=== PATIENT | female | born 1955 | race Caucasian/White ===

== ENCOUNTER 2018-02-14 17:18 | Inpatient (IN) ==
--- NOTE | 2018-02-14 17:30 | Emergency Department Note ---
Disposition Clinical Impression: Fall Qualifiers: Encounter type: initial encounter Qualified Code(s): W19.XXXA - Unspecified fall, initial encounter Fracture of right tibial plateau Qualifiers: Encounter type: initial encounter Fracture type: closed Qualified Code(s): S82.141A - Displaced bicondylar fracture of right tibia, initial encounter for closed fracture Disposition: Admitted As Inpatient Condition: Fair Time of Disposition: 20:13 Fall HPI - General Stated Complaint: Fall Time Seen by Provider: 02/14/18 17:26 Nursing Notes Reviewed: Yes Vital Signs Reviewed: Yes - History of Present Illness HPI Narrative: 62-year-old female presents from home via EMS for evaluation after a fall. Patient was walking up the stairs of her porch carrying bags from a shopping trip and stumbled, falling into the flower bed with mulch and concrete figurines. No loss of consciousness. She did hit the left side of her jaw on something hard. Her primary concern at this time is her right knee pain. PMH: Remote esophageal cancer. Hypertension. No history of CVA, TIA, CAD, ACS. ROS: Positive: As above Negative: Chest pain, palpitations, dizziness, vertigo, weakness, numbness, tingling, confusion, changes in vision, fever, dysuria - Related Data Home Medications Medication Instructions Recorded Confirmed Atenolol [Tenormin] 12.5 mg PO DAILY 02/14/18 02/14/18 Atorvastatin [Lipitor] 10 mg PO HS 02/14/18 02/14/18 Buspirone HCl [Buspar] 15 mg PO BID 02/14/18 02/14/18 Cholecalciferol (D-3) [Vitamin D] 5,000 unit PO DAILY 02/14/18 02/14/18 Esomeprazole Magnesium [Nexium] 40 mg PO DAILY 02/14/18 02/14/18 Ferrous Sulfate [Iron] 325 mg PO TID 02/14/18 02/14/18 Lisinopril [Zestril] 10 mg PO DAILY 02/14/18 02/14/18 Magnesium Oxide [Magnesium] 400 mg PO BID 02/14/18 02/14/18 Megestrol Acetate [Megace] 40 mg PO BID 02/14/18 02/14/18 Sodium Chloride [Sodium Chloride 1 gm PO DAILY 02/14/18 02/14/18 Tab] traZODone [TraZODone] 25 mg PO HS 02/14/18 02/14/18 Allergies Allergy/AdvReac Type Severity Reaction Status Date / Time No Known Allergies Allergy Verified 10/29/16 16:21 All systems ED: reviewed and negative except as stated. Review of Systems: As Per HPI Fall PMH - Past Medical History Medical history: Reports: coronary artery disease Surgical history: Reports: non-contributory Psychiatric history: Reports: no psych history - Social History Smoking Status: Never smoker Alcohol use: Reports: none Drug use: Reports: none Physical Exam Primary survey: Airway: Intact; patient is speaking in complete sentences and maintaining secretions. Breathing: No chest wall tenderness. Bilateral breath sounds equal. Circulation: Bilateral radial, posterior tibial, pulses 2/4. No hemorrhaging. Disability: GCS 15. Exposure: Faint ecchymosis over left angle of mandible otherwise no abrasions, lacerations, ecchymosis, or hematomas on the patient's scalp or face, trunk, extremities. Secondary survey Vital Signs Reviewed General: Patient is alert, oriented, and in mild distress from her right knee pain. She appears looking stated age. HEENT: No facial asymmetry. Head is normocephalic and atraumatic. PERRLA, EOMI. Nasal turbinates moist and pink without epistaxis. Oral mucosa moist. Poor dentition. Cardiovascular: Heart regular rate and rhythm without clicks, rubs, gallops, or murmurs. No JVD. PMI nondisplaced. Bilateral radial and posterior tibial pulses 2/4 equal. Respiratory: Symmetric chest rise with good respiratory effort. Bilateral breath sounds are clear without wheezing, crackles, or rhonchi. Abdomen: Bowel sounds present normoactive x-4 quadrants. Abdomen is soft, nondistended, and nontender. No organomegaly noted. Musculoskeletal: Right knee is swollen and tender to palpation; range of motion limited secondary to pain. Left knee painful to palpation and with Dr. range of motion; nonswollen with no overlying ecchymosis, abrasion, laceration. Pain to movement of right pinky finger with no overlying ecchymosis, deformity, laceration, abrasion. Otherwise, nontender spinous processes C-spine, T-spine, L-spine. Nontender palpation of ribs, pelvis, shoulders, elbows, wrist or hands , arm or forearm, thigh, leg, ankle, foot. Neuro: Sensation light touch intact and equal in bilateral upper and lower extremity. No facial asymmetry or slurring of speech. Psych: Patient's affect is appropriate for situation. Course Course Narrative: X-ray right knee demonstrates comminuted fracture of the right tibial plateau. Imaging otherwise unremarkable. Discussed the patient with on-call orthopedics, Dr. Smalls. He requests CT proximal tibia without contrast, admission to hospitalist. He will see the patient as consult. Will order preop labs. Discussed the patient with the admitting hospitalist. He agrees to see the patient for continued evaluation monitoring. Cervical Spine CT 02/14/18 17:27 IMPRESSION: No acute abnormality of the cervical spine. D/ / Khai Hess MD / Khai Hess MD Interpreting Provider: Khai Hess MD Head CT 02/14/18 17:27 IMPRESSION: Stable negative CT brain with no acute intracranial abnormality. D/ / Aida Adler MD / Aida Adler MD Interpreting Provider: Aida Adler MD Knee X-Ray 02/14/18 17:27 IMPRESSION: 1. Comminuted fracture extending through the medial and lateral right tibial plateau 2. Right joint effusion 3. No acute abnormalities seen in the left knee D/ / Esvin Dong MD / Esvin Dong MD Interpreting Provider: Esvin Dong MD Hand X-Ray 02/14/18 17:33 IMPRESSION: No acute osseous abnormality. Given the degree of osteopenia, nondisplaced fractures may be radiographically occult. If pain or concern for fracture persists, consider MR or CT imaging. D/ / Demetrice Gonsalez MD / Demetrice Gonsalez MD Interpreting Provider: Demetrice Gonsalez MD Vital Signs Temperature 97.6 F 02/14/18 17:22 Pulse Rate 60 02/14/18 17:22 Respiratory Rate 16 02/14/18 17:22 Blood Pressure 196/87 02/14/18 17:22 O2 Sat by Pulse Oximetry 100 02/14/18 17:22 Temperature 97.6 F 02/14/18 17:22 Pulse Rate 61 02/14/18 18:30 Respiratory Rate 20 02/14/18 18:30 Blood Pressure 168/103 02/14/18 18:30 O2 Sat by Pulse Oximetry 100 02/14/18 18:30 Oxygen Delivery Oxygen Delivery Room Air Fall - Lab Data Result diagrams: 02/14/18 19:38 02/14/18 19:38
[2018-02-14] MEDS ORDERED: *HR* HYDROcodone/Acet 7.5/325 mg TABLET PO ONE (17:47)
--- NOTE | 2018-02-14 17:59 | Emergency Department Note ---
Disposition Clinical Impression: Fall Disposition: Still a Patient Referrals: Paras Horvath MD [Primary Care Provider] - Forms: ED Satisfaction Letter General Adult HPI - General Chief complaint: ED Extremity Injury, Lower Stated complaint: Fall Time Seen by Provider: 02/14/18 17:26 Source: patient Limitations: no limitations - History of Present Illness Pain Scale: 8 - Related Data Home Medications Medication Instructions Recorded Confirmed Atenolol [Tenormin] 12.5 mg PO DAILY 02/14/18 02/14/18 Atorvastatin [Lipitor] 10 mg PO HS 02/14/18 02/14/18 Buspirone HCl [Buspar] 15 mg PO BID 02/14/18 02/14/18 Cholecalciferol (D-3) [Vitamin D] 5,000 unit PO DAILY 02/14/18 02/14/18 Esomeprazole Magnesium [Nexium] 40 mg PO DAILY 02/14/18 02/14/18 Ferrous Sulfate [Iron] 325 mg PO TID 02/14/18 02/14/18 Lisinopril [Zestril] 10 mg PO DAILY 02/14/18 02/14/18 Magnesium Oxide [Magnesium] 400 mg PO BID 02/14/18 02/14/18 Megestrol Acetate [Megace] 40 mg PO BID 02/14/18 02/14/18 Sodium Chloride [Sodium Chloride 1 gm PO DAILY 02/14/18 02/14/18 Tab] traZODone [TraZODone] 25 mg PO HS 02/14/18 02/14/18 Allergies Allergy/AdvReac Type Severity Reaction Status Date / Time No Known Allergies Allergy Verified 10/29/16 16:21 Past Medical History - Past Medical History Medical history: Reports: coronary artery disease Surgical history: Reports: non-contributory Psychiatric history: Reports: no psych history - Social History Smoking Status: Never smoker Smokeless Tobacco Status: No Alcohol use: Reports: none Drug use: Reports: none Physical Exam - General Limitations: no limitations General appearance: alert, in no apparent distress Course Vital Signs Temperature 97.6 F 02/14/18 17:22 Pulse Rate 60 02/14/18 17:22 Respiratory Rate 16 02/14/18 17:22 Blood Pressure 196/87 02/14/18 17:22 O2 Sat by Pulse Oximetry 100 02/14/18 17:22 Temperature 97.6 F 02/14/18 17:22 Pulse Rate 61 02/14/18 18:30 Respiratory Rate 20 02/14/18 18:30 Blood Pressure 168/103 02/14/18 18:30 O2 Sat by Pulse Oximetry 100 02/14/18 18:30 Oxygen Delivery Oxygen Delivery Room Air Attestation Statement - Attestation Attestation: I examined this patient and my medical decision-making was reviewed with the Resident Physician. I agree with the documented findings, disposition and treatment plan as described except to the extent set forth below. Patient resisted emergency department after a fall. Patient lost her balance walking up the stairs outside her house with shopping bags. She lost her balance and fell to the side landing in the mulch and striking the side of her face on a garden statue. No loss of consciousness. Complaining of pain in the left side of her face and right knee pain. Denies neck or back pain. Denies taking blood thinners. On examination she has tenderness and swelling over the superior aspect of the knee. Does not allow any movement. Tenderness over the hand laterally and some mild left knee tenderness as well. No spine tenderness. Plan. Imaging. Patient with tibial plateau fracture. We will consult with orthopedics and will be admitted to medicine. Cervical Spine CT 02/14/18 17:27 IMPRESSION: No acute abnormality of the cervical spine. D/ / Khai Hess MD / Khai Hess MD Interpreting Provider: Kahi Hess MD Head CT 02/14/18 17:27 IMPRESSION: Stable negative CT brain with no acute intracranial abnormality. D/ / Aida Adler MD / Aida Adler MD Interpreting Provider: Aida Adler MD Knee X-Ray 02/14/18 17:27 IMPRESSION: 1. Comminuted fracture extending through the medial and lateral right tibial plateau 2. Right joint effusion 3. No acute abnormalities seen in the left knee D/ / Esvin Dong MD / Evsin Dong MD Interpreting Provider: Esvin Dong MD Hand X-Ray 02/14/18 17:33 IMPRESSION: No acute osseous abnormality. Given the degree of osteopenia, nondisplaced fractures may be radiographically occult. If pain or concern for fracture persists, consider MR or CT imaging. D/ / Demetrice Gonsalez MD / Demetrice Gonsalez MD Interpreting Provider: Demetrice Gonsalez MD
[2018-02-14 19:48] LABS: Basophils % 0.4 %; Eosinophils # 0.1 K/mcL (0.0-0.6); Eosinophils % 1.3 %; Hematocrit 35.6 % (35.3-44.9); Hemoglobin 12.1 g/dL (11.5-15.4); Immature Granulocytes % 0.4 % (0-4); Lymphocytes # 1.7 K/mcL (0.6-4.6); Lymphocytes % 21.6 %; Mean Corpuscular Hemoglobin 30.9 pg (28.0-33.3); Mean Corpuscular Volume 90.8 fL (83.0-100.0); Mean Platelet Volume 8.9 fL (9.4-12.4); Monocytes # 0.6 K/mcL (0.0-1.3); Monocytes % 7.2 %; Neutrophils # 5.3 K/mcL (1.6-8.9); Platelet Count 256 K/mcL (140-400); Red Blood Count 3.92 M/mcL (3.82-4.97); Red Cell Distribution Width 12.3 % (11.5-14.5); Segmented Neutrophils % 69.1 %
[2018-02-14] MEDS ORDERED: traMADol 50 MG TABLET PO PRN (19:49)
[2018-02-14] MEDS ORDERED: Naloxone 0.4 MG/ML INJ IVP PRN (19:49)
[2018-02-14] MEDS ORDERED: Acetaminophen 325 MG TABLET PO PRN (19:49)
[2018-02-14 19:54] LABS: Prothrombin Time 10.8 Seconds (9.4-12.1)
--- NOTE | 2018-02-14 19:54 | Internal Med History&Physical ---
Date of Encounter: 02/15/18 Time of Encounter: 19:53 Internal Medicine - H&P: HPI Chief complaint: Fall/Right Tibial Plateu Fracture History of present illness: Ms. Buckley is a 62 year old female with a past medical history of hypertension who presents to the emergency department after a fall. Patient reportedly lost her balance walking up a short flight of stairs outside her house while carrying shopping bags. She landing in the mulch and striking the side of her face on a garden statue. She reports no loss of consciousness. Upon presentation she complained of pain in the left side of her face and right knee pain. Denies neck or back pain. Denies taking blood thinners. On examination she has tenderness and swelling over the superior aspect of the knee. Does not allow any movement. Tenderness over the hand laterally and some mild left knee tenderness as well. No spine tenderness. Imaging notable for a comminuted fracture extending through the medial and lateral right tibial plateau. Dr. Byron conley with orthopedics has been consulted and will see the patient in the morning. Past Med Surg Social Fam HX - Past Medical History Medical history: coronary artery disease Additional medical history: esophageal cancer Psychiatric history: no psych history - Past Surgical History Surgical History: non-contributory Additional surgical history: esphagus - Social History Smoking Status: Never smoker Smokeless Tobacco Status: No Alcohol use: none Drug use: none Internal Medicine - H&P: Meds Atenolol [Tenormin] 12.5 mg PO DAILY 02/14/18 [History] Atorvastatin [Lipitor] 10 mg PO HS 02/14/18 [History] Buspirone HCl [Buspar] 15 mg PO BID 02/14/18 [History] Cholecalciferol (D-3) [Vitamin D] 5,000 unit PO DAILY 02/14/18 [History] Esomeprazole Magnesium [Nexium] 40 mg PO DAILY 02/14/18 [History] Ferrous Sulfate [Iron] 325 mg PO TID 02/14/18 [History] Lisinopril [Zestril] 10 mg PO DAILY 02/14/18 [History] Magnesium Oxide [Magnesium] 400 mg PO BID 02/14/18 [History] Megestrol Acetate [Megace] 40 mg PO BID 02/14/18 [History] Sodium Chloride [Sodium Chloride Tab] 1 gm PO DAILY 02/14/18 [History] traZODone [TraZODone] 25 mg PO HS 02/14/18 [History] 3 Allergy/AdvReac Type Severity Reaction Status Date / Time No Known Allergies Allergy Verified 10/29/16 16:21 All Systems PM: A 10-system review of systems was performed and is negative for pertinent findings except as documented above in the HPI. - Constitutional Constitutional: no chills, no fever(s), no night sweats - EENT Eyes: no change in vision, no discharge, no pain, no photophobia Ears: no ear discharge, no ear pain, no tinnitus Nose, mouth and throat: no dysphagia, no nasal discharge, no neck pain, no sore throat - Cardiovascular Cardiovascular ROS IM: no chest pain, no diaphoresis, no dyspnea, no lightheadedness, no palpitations, no syncope - Respiratory Respiratory: no cough, no dyspnea, no wheezing, no excessive phlegm production - Gastrointestinal Gastrointestinal: no abdominal pain, no diarrhea, no hematemesis, no hematochezia, no melena, no nausea, no vomiting - Genitourinary Genitourinary: no change in urinary stream, no dysuria, no flank pain, no hematuria - Musculoskeletal Musculoskeletal ROS IM: no numbness, no tingling - Integumentary Integumentary IM: no rash, no unusual bruising - Neurological Neurological ROS: no confusion, no convulsions, no focal weakness, no numbness, no tingling, no tremor(s) - Hematologic/Lymphatic Hematologic/Lymphatic: no easy bruising - Constitutional Vitals: Temp Pulse Resp BP Pulse Ox 97.6 F 61 20 168/103 100 02/14/18 17:22 02/14/18 18:30 02/14/18 18:30 02/14/18 18:30 02/14/18 18:30 Exam: General: Alert and oriented 3; lying in bed in no acute distress Skin:Normal color, no rash, no lesions. HEENT:EOM, pupils equal, round and reactive. Cardiovascular:Normal S1 & S2, no rubs, murmurs or gallops. No JVD. Pulse regular. Lungs:Normal breath sounds, no wheezes or crackles. Abdomen:Soft, non-tender, no rigidity. Extremities:No deformity of the right distal femur/knee, tender to palpation. no edema, no joint swelling or clubbing. Neurological:Normal cognition and motor skills. Pulses:Carotid and radial pulses normal +2. Rest of the physical exam is non contributory Internal Med - H&P Results - Labs CBC & Chem 7: 02/14/18 19:38 02/14/18 19:38 Labs: Short CBC 02/14/18 Range/Units 19:38 WBC 7.7 (4.3-11.1) K/mcL Hgb 12.1 (11.5-15.4) g/dL Hct 35.6 (35.3-44.9) % Plt Count 256 (140-400) K/mcL Neutrophils # 5.3 (1.6-8.9) K/mcL - Assessment and plan (1) Tibial plateau fracture, right Current Visit: Yes Status: Acute Assessment and plan: Right comminuted tibial plateau fracture status post fall. Orthopedics has been consulted. We will keep Patient nothing by mouth after midnight. Continue with heparin for DVT prophylaxis. Pain control. Qualifiers: Encounter type: initial encounter Fracture type: closed Qualified Code(s) : S82.141A - Displaced bicondylar fracture of right tibia, initial encounter for closed fracture (2) Fall Current Visit: Yes Status: Acute Assessment and plan: Fall without reports of loss of consciousness.. Continue with fluid hydration. Qualifiers: Encounter type: subsequent encounter Qualified Code(s): W19.XXXD - Unspecified fall, subsequent encounter (3) Hypertension Current Visit: Yes Status: Chronic Assessment and plan: Hypertension likely secondary to pain. Continue patient's home antihypertensives for today. Qualifiers: Hypertension type: essential hypertension Qualified Code(s): I10 - Essential (primary) hypertension (4) DVT prophylaxis Current Visit: Yes Status: Acute Assessment and plan: Subcutaneous heparin - Time Spent With Patient Total time spent is greater than 50% in coordination of care (as documented) at patient's floor/unit and/or counseling patient:
[2018-02-14 20:12] LABS: BUN/Creatinine Ratio 19 (6-26); Blood Urea Nitrogen 15 mg/dL (8-23); Calcium 9.9 mg/dL (8.6-10.3); Carbon Dioxide 24 mEq/L (23-29); Chloride 101 mEq/L (98-107); Glucose 102 mg/dL (70-105); Osmolality,Calculated 287 (280-300); Sodium 138 mEq/L (136-145); eGFR For Non-African Americans > 60 (> 60)
[2018-02-14] MEDS ORDERED: *HR* FentaNYL (PF) 100 MCG/2 ML VIAL IVP ONE (20:26)
[2018-02-14] MEDS ORDERED: *HR* FentaNYL (PF) 100 MCG/2 ML VIAL ONE (20:33)
[2018-02-14] MEDS: *HR* Heparin 5,000 UNIT/ML VIAL SQ SCH (22:28)
[2018-02-14] MEDS: 0.9 % Sodium Chloride 1,000 ML IVC SCH (22:29)
[2018-02-14] MEDS: *HR* OxyCODONE Immed Rel 5 MG TABLET PO PRN (22:29)
[2018-02-15] MEDS: *HR* Heparin 5,000 UNIT/ML VIAL SQ SCH ×3 (05:11→21:02)
[2018-02-15] MEDS: *HR* OxyCODONE Immed Rel 5 MG TABLET PO PRN ×2 (09:54→21:01)
--- NOTE | 2018-02-15 13:54 | Internal Med Progress Note ---
<Triston Pollard - Last Filed: 02/15/18 17:52> Hospitalist Progress Note - Encounter Date of Encounter: 02/15/18 Time of Encounter: 11:00 - Subjective Interval History: Patient was seen and examined up and since morning. She states overall she is doing well with improvement in her pain. She states she was carrying a case of soda a flight of stairs and had a mechanical fall secondary to this. She states that she stepped on the stair and just lost her footing. She denies any symptoms of dizziness, lightheadedness, palpitations, chest pain, shortness of breath. She denies loss of consciousness and states she fell on her face. She states she does not have chest pain at home and walks around with intermittent assistance of a cane/walker. She does not climb stairs however is able to get around her house without any problems. Last cardiac workup unknown to patient. She states she believes she had an echocardiogram at some point but is never required a left heart catheterization or stress test. - Exam Vitals: Temp Pulse Resp BP Pulse Ox 98.1 F 69 18 124/76 94 02/15/18 11:01 02/15/18 11:01 02/15/18 11:01 02/15/18 11:01 02/15/18 11:01 Exam: Gen.: Vitals noted. No acute distress. AAOx3 HEENT: PERRL/EOMI, oropharynx clear, Normocephalic, atraumatic, MMM Cardiac: RRR, no murmur, +S1/S2 Pulmonary: CTA bilaterally, no wheezes, rales or rhonchi, equal chest expansion Abdomen: soft, nontender, BS noted, no guarding, no rebound. MSK: Range of motion of right lower extremity not tested as patient is in a knee splint. Sensation intact in bilateral lower extremities. Extremities: no BLE edema, nontender calf, no cyanosis or clubbing. Distal pulses equal and strong. Neuro: A&Ox3, moves all extremities, no focal deficits Psych: Appropriate mood and behavior - Assessment and Plan (1) Fall Current Visit: Yes Status: Acute Assessment and Plan: Fall without reports of loss of consciousness.. Patient states this is a mechanical fall without evidence of syncope or presyncope. Continue IV fluids while nothing by mouth Head CT unremarkable for acute changes, cervical spine CT shows no acute changes , hand x-ray with no acute fractures. No previous cardiac workup in our records and patient is unsure but states that she has no cardiac issues. We will obtain EKG and anticipation for possible surgery (2) Tibial plateau fracture, right Current Visit: Yes Status: Acute Assessment and Plan: Right comminuted tibial plateau fracture status post fall. Orthopedics has been consulted. Continue nothing by mouth status until assessed by orthopedics Continue with heparin for DVT prophylaxis. Patient reports adequate Pain control. (3) Hypertension Current Visit: Yes Status: Chronic Assessment and Plan: Well-controlled this morning at 124/76 Continue monitor and continue home medications (4) DVT prophylaxis Current Visit: Yes Status: Acute Assessment and Plan: Subcutaneous heparin - Time Spent with Patient Total time spent is greater than 50% in coordination of care (as documented) at patient's floor/unit and/or counseling patient: Internal Medicine: Result - Labs CBC & Chem 7: 02/14/18 19:38 02/14/18 19:38 - ABG Interpretation ABG results: PT/INR, D-dimer PT 10.8 Seconds (9.4-12.1) 02/14/18 19:38 Consult Discharge Plan - Plan Referrals: Paras oHrvath MD [Primary Care Provider] - <Kamar Doty - Last Filed: 02/15/18 18:40> Hospitalist Progress Note - Encounter Date of Encounter: 02/15/18 - Exam Vitals: Temp Pulse Resp BP Pulse Ox 98.6 F 82 16 89/60 96 02/15/18 17:47 02/15/18 17:47 02/15/18 17:47 02/15/18 17:47 02/15/18 17:47 - Assessment and Plan (1) Fall Current Visit: Yes Status: Acute (2) Tibial plateau fracture, right Current Visit: Yes Status: Acute (3) Hypertension Current Visit: Yes Status: Chronic (4) DVT prophylaxis Current Visit: Yes Status: Acute - Time Spent with Patient Total time spent is greater than 50% in coordination of care (as documented) at patient's floor/unit and/or counseling patient: Internal Medicine: Result - Labs CBC & Chem 7: 02/14/18 19:38 02/14/18 19:38 - ABG Interpretation ABG results: PT/INR, D-dimer PT 10.8 Seconds (9.4-12.1) 02/14/18 19:38 - Attending Attestation I examined this patient and my medical decision-making was reviewed with the Resident Physician on 02/15/18. I agree with the documented findings, disposition and treatment plan as described except to the extent set forth below. Ms Buckley is currently admitted for fracture tibial plateau. She remains moderate to high risk due to potential for worsening clinical status. Ms Buckley is awaiting surgery. No fever or chills. Pain controlled. Exam Alert Comfortable at this time Mucus membranes dry Heart distant Lungs diminished Abd soft I/P 1. Fracture tibial plateau Further diagnoses and plan as above. <Triston Pollard - Last Filed: 02/15/18 17:52> (1) Fall Qualifiers: Encounter type: initial encounter Qualified Code(s): W19.XXXA - Unspecified fall, initial encounter (2) Tibial plateau fracture, right Qualifiers: Encounter type: initial encounter Fracture type: closed Qualified Code(s): S82.141A - Displaced bicondylar fracture of right tibia, initial encounter for closed fracture <Kamar Doty - Last Filed: 02/15/18 18:40> (1) Fall Qualifiers: Encounter type: subsequent encounter Qualified Code(s): W19.XXXD - Unspecified fall, subsequent encounter (2) Tibial plateau fracture, right Qualifiers: Encounter type: initial encounter Fracture type: closed Qualified Code(s): S82.141A - Displaced bicondylar fracture of right tibia, initial encounter for closed fracture (3) Hypertension Qualifiers: Hypertension type: essential hypertension Qualified Code(s): I10 - Essential (primary) hypertension
[2018-02-15] MEDS: 0.9 % Sodium Chloride 1,000 ML IVC SCH (17:40)
--- NOTE | 2018-02-15 19:44 | Orthopedic Consult Note ---
Date of Encounter: 02/15/18 Time of Encounter: 19:35 History of Present Illness Chief complaint: Right knee pain HPI: Ms. Buckley is a 62 year old female well known to me from previous treatment of other conditions. The patient apparently sustained a mechanical fall injuring her right knee at home. She was brought to the emergency room and [facility] were x-rays revealed evidence of a right tibial plateau fracture. CT scan evaluation revealed a severely comminuted fracture. Patient is admitted for definitive orthopedic management. Patient denies any other injuries. She denies blackouts dizziness vertigo etc. leading to the event. I reviewed the patient's completed history and physical exam as well as the medical record. Pertinent orthopedic examination this time reveals a markedly tense effusion in the right knee. The right leg around the knee and proximal tibia area is tender to palpation. Still neurosensory exam is intact. No evidence of rotational or leg length deformities. Reviewed x-rays of the right knee. These reveal a bicondylar fracture of the proximal tibia. There is metaphyseal involvement of both the medial and lateral sides with a very wide appearing tibial surface. Lateral views reveals depression. A CT scan of the knee shows the more extensive fracture involvement. There is tremendous comminution of the articular surfaces especially with a split depressed central portion of the lateral tibial plateau and marked involvement of the anterior aspect of the medial plateau. This includes the region of the tibial tubercle. A large lipohemarthrosis is present. Impression: Acute, comminuted bicondylar fracture right tibial plateau ( Schatzker ) Recommendation: Had a long discussion with the patient regarding this fracture and the treatment options available. This is a severe fracture with long-term sequelae no matter how warts treated. 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 Surgical reduction and fixation would be aimed at providing optimal bone stock for knee replacement when the posttraumatic arthritis becomes painful enough to proceed with such. Discussed that nonoperative management guarantees a poor outcome. Discussed with the patient surgical procedure in ORIF of this fracture. This would include both medial and lateral buttress plate fixation and bone grafting of the fluid in the metaphyseal region and in the subchondral bone. We discussed the surgical procedure with its potential risks and complications including but not limited to bleeding, infection, nerve injury, stiffness, malunion, nonunion as well as the anticipated posttraumatic arthritis. I showed the patient images in addition to reviewing the surgical procedure. Patient understands and agrees to proceed with surgery as outlined. I have scheduled her for surgery tomorrow and will proceed when operating time is available. Thank you very much for allowing me to see and treat Mrs. Buckley. Sincerely, Steven Smalls,DO Past Med Surg Social Fam HX - Past Medical History Medical history: coronary artery disease Additional medical history: esophageal cancer Psychiatric history: no psych history - Past Surgical History Surgical History: non-contributory Additional surgical history: esphagus - Social History Smoking Status: Never smoker Smokeless Tobacco Status: No Alcohol use: none Drug use: none Medications and Allergies Atenolol [Tenormin] 12.5 mg PO DAILY 02/14/18 [History] Atorvastatin [Lipitor] 10 mg PO HS 02/14/18 [History] Buspirone HCl [Buspar] 15 mg PO BID 02/14/18 [History] Cholecalciferol (D-3) [Vitamin D] 5,000 unit PO DAILY 02/14/18 [History] Esomeprazole Magnesium [Nexium] 40 mg PO DAILY 02/14/18 [History] Ferrous Sulfate [Iron] 325 mg PO TID 02/14/18 [History] Lisinopril [Zestril] 10 mg PO DAILY 02/14/18 [History] Magnesium Oxide [Magnesium] 400 mg PO BID 02/14/18 [History] Megestrol Acetate [Megace] 40 mg PO BID 02/14/18 [History] Sodium Chloride [Sodium Chloride Tab] 1 gm PO DAILY 02/14/18 [History] traZODone [TraZODone] 25 mg PO HS 02/14/18 [History] 3 Allergy/AdvReac Type Severity Reaction Status Date / Time No Known Allergies Allergy Verified 10/29/16 16:21 All Systems Reviewed: The remainder of the systems were reviewed and are negative Physical Exam - Constitutional Vitals: Temp Pulse Resp BP Pulse Ox 98.6 F 82 16 89/60 96 02/15/18 17:47 02/15/18 17:47 02/15/18 17:47 02/15/18 17:47 02/15/18 17:47 Results - Labs Result Diagrams: 02/14/18 19:38 02/14/18 19:38 Labs: Abnormal lab results MPV 8.9 fL (9.4-12.4) L 10/10/18 19:38 All other labs normal. - Diagnostic results Knee x-ray: image reviewed Knee CT: image reviewed Consult Discharge Plan - Plan Referrals: Paras Horvath MD [Primary Care Provider] -
[2018-02-16] MEDS: *HR* OxyCODONE Immed Rel 5 MG TABLET PO PRN (03:02)
[2018-02-16 04:29] LABS: Basophils % 0.7 %; Eosinophils # 0.1 K/mcL (0.0-0.6); Eosinophils % 2.6 %; Immature Granulocytes % 0.2 % (0-4); Lymphocytes # 1.2 K/mcL (0.6-4.6); Lymphocytes % 26.7 %; Mean Corpuscular HGB Conc 32.8 g/dL (31.6-35.5); Mean Corpuscular Hemoglobin 30.6 pg (28.0-33.3); Mean Corpuscular Volume 93.5 fL (83.0-100.0); Mean Platelet Volume 9.6 fL (9.4-12.4); Monocytes # 0.5 K/mcL (0.0-1.3); Neutrophils # 2.7 K/mcL (1.6-8.9); Platelet Count 207 K/mcL (140-400); Red Cell Distribution Width 12.5 % (11.5-14.5); Segmented Neutrophils % 58.8 %
[2018-02-16 05:41] LABS: Hemoglobin 9.5 g/dL (11.5-15.4)
--- NOTE | 2018-02-16 13:48 | Internal Med Progress Note ---
<Triston Pollard - Last Filed: 02/16/18 16:44> Hospitalist Progress Note - Encounter Date of Encounter: 02/16/18 Time of Encounter: 09:30 - Subjective Interval History: Patient was seen and examined up and since morning. She states overall she is doing well with improvement in her pain. She does admit to some swelling in her right lower extremity but states this pain is moderately well controlled. Denies any symptoms of chest pain, shortness of breath, nausea, vomiting, fevers , chills. She is having no numbness or tingling of her lower extremities. She is hungry but is understanding that she has to remain nothing by mouth until her surgery. - Exam Vitals: Temp Pulse Resp BP Pulse Ox 97.9 F 70 18 115/73 94 02/16/18 10:38 02/16/18 10:38 02/16/18 10:38 02/16/18 10:38 02/16/18 10:38 Exam: Gen.: Vitals noted. No acute distress. AAOx3 HEENT: PERRL/EOMI, oropharynx clear, Normocephalic, atraumatic, MMM Cardiac: RRR, no murmur, +S1/S2 Pulmonary: CTA bilaterally, no wheezes, rales or rhonchi, equal chest expansion Abdomen: soft, nontender, BS noted, no guarding, no rebound. MSK: ROM not tested due to pain in brace, no joint swelling noted. Right lower extremity with soft brace. Distal sensation intact and muscle strength intact. Strong distal pulses Extremities: no BLE edema, nontender calf, no cyanosis or clubbing Neuro: A&Ox3, moves all extremities, no focal deficits Psych: Appropriate mood and behavior - Assessment and Plan (1) Fall Current Visit: Yes Status: Acute Assessment and Plan: Fall without reports of loss of consciousness.. Patient states this is a mechanical fall without evidence of syncope or presyncope. Head CT unremarkable for acute changes, cervical spine CT shows no acute changes , hand x-ray with no acute fractures. No previous cardiac workup in our records and patient is unsure but states that she has no cardiac issues. EKG performed today and personally reviewed by myself, no signs of ischemia. (2) Tibial plateau fracture, right Current Visit: Yes Status: Acute Assessment and Plan: Right comminuted tibial plateau fracture status post fall. Orthopedics has been consulted. Patient scheduled for surgery this evening with Continue nothing by mouth status Heparin held for surgery this evening Patient reports adequate Pain control. (3) Hypertension Current Visit: Yes Status: Chronic Assessment and Plan: Well-controlled this morning with most recent reading of 115/73 Continue home medications (4) DVT prophylaxis Current Visit: Yes Status: Acute Assessment and Plan: Hold heparin this evening in preparation for surgery (5) Anemia Current Visit: Yes Status: Acute Assessment and Plan: - Hemoglobin this morning at 9.5 just decreased from 12.1 - Baseline appears to be around 12-13 - Unclear etiology at this time, possibly dilutional - We will continue monitor and transfuse as necessary in the setting of surgery for preparation this evening - Holding heparin due to surgery this evening - Time Spent with Patient Total time spent is greater than 50% in coordination of care (as documented) at patient's floor/unit and/or counseling patient: Internal Medicine: Result - Labs CBC & Chem 7: 02/16/18 03:42 02/14/18 19:38 Labs: Short CBC 02/16/18 Range/Units 03:42 WBC 4.5 (4.3-11.1) K/mcL Hgb 9.5 L D (11.5-15.4) g/dL Hct 29.0 L (35.3-44.9) % Plt Count 207 (140-400) K/mcL Neutrophils # 2.7 (1.6-8.9) K/mcL - ABG Interpretation ABG results: PT/INR, D-dimer PT 10.8 Seconds (9.4-12.1) 02/14/18 19:38 Consult Discharge Plan - Plan Referrals: Paras Horvath MD [Primary Care Provider] - <Kamar Doty - Last Filed: 02/16/18 17:00> Hospitalist Progress Note - Encounter Date of Encounter: 02/16/18 - Exam Vitals: Temp Pulse Resp BP Pulse Ox 98.4 F 75 16 111/66 97 02/16/18 14:51 02/16/18 14:51 02/16/18 14:51 02/16/18 14:51 02/16/18 14:51 - Assessment and Plan (1) Fall Current Visit: Yes Status: Acute (2) Tibial plateau fracture, right Current Visit: Yes Status: Acute (3) Hypertension Current Visit: Yes Status: Chronic (4) DVT prophylaxis Current Visit: Yes Status: Acute (5) Anemia Current Visit: Yes Status: Acute Assessment and Plan: Need to monitor closely. Most likely due to blood loss from fracture. Transfuse if needed. - Time Spent with Patient Total time spent is greater than 50% in coordination of care (as documented) at patient's floor/unit and/or counseling patient: Internal Medicine: Result - Labs CBC & Chem 7: 02/16/18 03:42 02/14/18 19:38 Labs: Short CBC 02/16/18 Range/Units 03:42 WBC 4.5 (4.3-11.1) K/mcL Hgb 9.5 L D (11.5-15.4) g/dL Hct 29.0 L (35.3-44.9) % Plt Count 207 (140-400) K/mcL Neutrophils # 2.7 (1.6-8.9) K/mcL - ABG Interpretation ABG results: PT/INR, D-dimer PT 10.8 Seconds (9.4-12.1) 02/14/18 19:38 - Attending Attestation I examined this patient and my medical decision-making was reviewed with the Resident Physician on 02/16/18. I agree with the documented findings, disposition and treatment plan as described except to the extent set forth below. Ms Buckley is currently admitted for tibial plateau fracture. She is going to OR today. She remains moderate to high risk due to potential for worsening clinical status. Ms Buckley is awaiting surgery. No fever or chills. H/H dropped. No CP or SOB. Family at bedside. Exam alert Comfortable Mucus membranes dry Heart not tachy No wheeze abd soft I/P 1. Tibial plateau fracture Further diagnoses and plan as above. <Triston Pollard - Last Filed: 02/16/18 16:44> (1) Fall Qualifiers: Encounter type: subsequent encounter Qualified Code(s): W19.XXXD - Unspecified fall, subsequent encounter (2) Tibial plateau fracture, right Qualifiers: Encounter type: initial encounter Fracture type: closed Qualified Code(s): S82.141A - Displaced bicondylar fracture of right tibia, initial encounter for closed fracture (3) Hypertension Qualifiers: Hypertension type: essential hypertension Qualified Code(s): I10 - Essential (primary) hypertension (5) Anemia Qualifiers: Anemia type: unspecified type Qualified Code(s): D64.9 - Anemia, unspecified <Kamar Doty - Last Filed: 02/16/18 17:00> (1) Fall Qualifiers: Encounter type: subsequent encounter Qualified Code(s): W19.XXXD - Unspecified fall, subsequent encounter (2) Tibial plateau fracture, right Qualifiers: Encounter type: initial encounter Fracture type: closed Qualified Code(s): S82.141A - Displaced bicondylar fracture of right tibia, initial encounter for closed fracture (3) Hypertension Qualifiers: Hypertension type: essential hypertension Qualified Code(s): I10 - Essential (primary) hypertension (5) Anemia Qualifiers: Anemia type: other cause Other causes of anemia: acute posthemorrhagic Qualified Code(s): D62 - Acute posthemorrhagic anemia
--- NOTE | 2018-02-16 19:07 | Anesthesia Evaluation PreOp ---
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 Any Significant HX Other Medical History: Denies Any Significant HX, Other (esophageal cancer) Anesthesia History: No Prior Anesthetic Complications, Past Anesthesia ( esophageal ca) : No Alcohol Use: none Drug use: none Medications and Allergies Atenolol [Tenormin] 12.5 mg PO DAILY 02/14/18 [History] Atorvastatin [Lipitor] 10 mg PO HS 02/14/18 [History] Buspirone HCl [Buspar] 15 mg PO BID 02/14/18 [History] Cholecalciferol (D-3) [Vitamin D] 5,000 unit PO DAILY 02/14/18 [History] Esomeprazole Magnesium [Nexium] 40 mg PO DAILY 02/14/18 [History] Ferrous Sulfate [Iron] 325 mg PO TID 02/14/18 [History] Lisinopril [Zestril] 10 mg PO DAILY 02/14/18 [History] Magnesium Oxide [Magnesium] 400 mg PO BID 02/14/18 [History] Megestrol Acetate [Megace] 40 mg PO BID 02/14/18 [History] Sodium Chloride [Sodium Chloride Tab] 1 gm PO DAILY 02/14/18 [History] traZODone [TraZODone] 25 mg PO HS 02/14/18 [History] 3 Allergy/AdvReac Type Severity Reaction Status Date / Time No Known Allergies Allergy Verified 10/29/16 16:21 - Meds/Allergy Pre-op Review Medications Reviewed: Yes Allergies Reviewed: Yes Beta Blockers on Current Med List: Yes If Beta Blockers taken, Date/Time (Last Dose taken): 08:07 02/16/2018 Anesthesia Results - Labs 02/16/18 03:42 02/14/18 19:38 Anesthesia Exam Vital Signs/O2 Sat, Most Current Temp Pulse Resp BP Pulse Ox 98.4 F 75 16 111/66 97 02/16/18 14:51 02/16/18 14:51 02/16/18 14:51 02/16/18 14:51 02/16/18 14:51 NPO (# of Hours): > 8 hrs Pain Scale: 0 Pain Scale Used: Numeric (1 - 10) - HEENT Pupil (Motor): Pupils equal, EOMI Mallampati: III Teeth: Missing Denture Type: Upper: Complete, Lower: Partial - WEB PRESS OPERATOR HELPER OFFSET LOC: Oriented WEB PRESS OPERATOR HELPER OFFSET Motor: Normal RUE, Normal LUE, Normal RLE, Normal LLE, Normal Face WEB PR[employer] OPERATOR HELPER OFFSET Sensory: Normal: RUE, LUE, RLE, LLE, Face - Cardiac Rhythm: Regular Murmur: None JVD: No Carotid Bruit: No - Pulmonary Breath Sounds: bilateral Clear Respiratory Effort: Symmetrical Anesthesia Assess/Plan ASA Score: 2 Modified Deepak Scale for Level of Consciousness: Cooperative, oriented, and tranquil Anesthetic Plan: General Autologous Blood: Yes Monitoring Plan: Standard Monitors Recovery Plan: PACU
[2018-02-16] MEDS ORDERED: *HR* Promethazine 25 MG/ML VIAL IVP PRN (19:13)
[2018-02-16] MEDS ORDERED: *HR* OxyCODONE Immed Rel 5 MG TABLET PO PRN (19:13)
[2018-02-16] MEDS ORDERED: Acetaminophen IV 1,000 MG/100 ML INFUS..BTL IVPB ONE (19:13)
[2018-02-16] MEDS ORDERED: *HR* Labetalol 20 MG/4 ML SYRINGE IVP PRN (19:13)
[2018-02-16] MEDS ORDERED: Ondansetron 4 MG/2 ML VIAL IVP ONE (19:13)
[2018-02-16] MEDS ORDERED: *HR* HYDROmorphone (PF) 1 MG/ML SYRINGE IVP PRN (19:13)
[2018-02-16] MEDS ORDERED: Albuterol 2.5 MG/3 ML NEBULIZER IH ONE (19:13)
[2018-02-16] MEDS ORDERED: *HR* Propofol 200 MG/20 ML VIAL IVP ONE (19:47)
[2018-02-16] MEDS ORDERED: *HR* FentaNYL (PF) 100 MCG/2 ML VIAL ONE (19:47)
[2018-02-16] MEDS ORDERED: *HR* Midazolam HCl 2 MG/2 ML VIAL ONE (19:47)
[2018-02-16] MEDS ORDERED: Lidocaine -MPF 2% 2 ML VIAL ONE (19:49)
[2018-02-16] MEDS ORDERED: *HR* Rocuronium Bromide 50 MG/5 ML VIAL ONE (19:49)
[2018-02-16] MEDS ORDERED: Ondansetron 4 MG/2 ML VIAL ONE (19:49)
[2018-02-16] MEDS ORDERED: Dexamethasone 4 MG/ML VIAL ONE (19:49)
--- NOTE | 2018-02-17 00:21 | Anesthesia Evaluation Post Op ---
Date of Encounter: 02/17/18 Time of Encounter: 00:20 - Vital Signs Vital Signs: Vital Signs/O2 Sat, Most Current Temp Pulse Resp BP Pulse Ox 98.7 F 82 16 94/64 95 02/16/18 23:58 02/17/18 00:18 02/17/18 00:18 02/17/18 00:18 02/17/18 00:18 - Lungs Lungs: Clear Ascult./Percussion - Airway Airway: Non-obstructed - Cardiovascular Regular Rate - Mental Status Mental Status: Alert & Oriented, Answers Appropriately - Pain Pain Scale: 0 Pain Scale used: Numeric (1 - 10) - Nausea Vomiting Nausea Vomiting: Not Present - Hydration Hydration: NPO, Flores catheter - Discharge PostOp Status: Transfer Patient to floor
--- NOTE | 2018-02-17 00:24 | Operative Note ---
Date of procedure: 02/16/18 Pre-op diagnosis: Displaced, comminuted bicondylar fracture right tibial plateau (Schatzker V Post-op diagnosis: same Procedure: 1. Open reduction internal fixation of bicondylar fracture right tibial plateau 2. Fluoroscopic guidance for ORIF right tibial plateau 3. Insertion of bone graft matrix right tibia Implants: [place] 5 hole medial proximal tibial locking plate and a 4-hole lateral proximal tibial locking plate and 5 mL of DBX bone putty with chips Complications: None Anesthesia: GETA Surgeon: Steven Smalls Was there an human resources office assistant present: No Estimated blood loss (cc): 25 Tourniquet Time (Minutes): 107 Specimen: None Condition: stable Disposition: PACU Procedure in Detail: Gross findings: Preoperative x-rays revealed a displaced bicondylar fracture involving the right tibial plateau. This was further evaluated with a CT scan which revealed the extent of the fracture. This was a markedly comminuted fracture with medial subluxation of the medial side and displacement distally at the level of the metaphyseal flare. Lateral side revealed a comminuted fracture as well with some widening, extension into the metaphyseal region as well as a centrally depressed fracture. Tremendous comminution of the anterior cortex was identified in essence emanating from lateral to medial. Intraoperative findings were as anticipated. A large hemarthrosis was evacuated. The fracture was noted to be markedly comminuted. The fracture was able to be reduced overall into excellent position and stabilized with both medial and lateral buttress type plates. The lateral articular surface depression was elevated with osteotomes and the family did was packed with DBX bone graft matrix. Clinically the patient had evidence suggesting a posterior cruciate ligament injury. This was not addressed surgically. Procedure: Patient was taken the operating room and transferred to the operating table. Patient had general anesthesia administered. Once adequate level of anesthesia had been obtained the right lower extremity was prepped and draped in normal standard fashion with a tourniquet placed high about the upper thigh. Leg was now exsanguinated utilizing Esmarch and tourniquet was inflated. Midline incision was created from the middle pole the patella and carried distally along the anterior tibial spine. Dissection was carried to the scanty subcutaneous tissues to the level of the tibia. Full-thickness subcutaneous tissue flaps were created and elevated. At this time limited subperiosteal exposure was performed of the proximal tibia along the medial side adjacent to the patella tendon and then similarly along the lateral side. Fascia was split on the lateral side allowing for a soft tissue stab remain attached to the tibia. Attention was then carried up proximally along the lateral side. The joint was opened and the hemarthrosis was encountered and evacuated. At this time the fractures were evaluated clinically and with fluoroscopy. Tremendous comminution was noted anteriorly. Attention was turned to the medial side first. The fracture was elevated and position verified with fluoroscopy. The selected 5 hole plate was then placed along the medial side of the proximal tibia and the proximal portion of the plate was positioned just below the level of the joint line. The plate was then secured initially with 2 cortical lag screws distally. This stabilized the fracture immediately. Attention was then turned lateral. The lateral fracture was much more comminuted and involved. The fracture was able to be approximately reduced. A bony window was now created below the level of the subchondral bone anteriorly. Osteotome was introduced and used to elevate the central portion. The fluid under the subchondral bone was then packed with 5 mL of DBX bone graft matrix. The lateral plate was then positioned along the lateral aspect of the tibia. It was secured distally with 2 cortical lag type screws. This gave excellent buttressing of the lateral portion of the plateau. Fluoroscopy was used to verify that the plates were in excellent position and the fractures were well reduced. Attention was then directed to locking the lateral plate distally and then placing 2 subchondral screws across the joint. This was to support the elevated fragment. The medial plate was then locked distally and had to locking screws placed proximally underneath the medial tibial plateau. Final fluoroscopic views were taken in multiple planes verifying the fracture was well reduced and implants were in excellent position. Wounds now irrigated with saline solution. The fascia and periosteum on each side was then closed with running #1 Vicryl. Medius obtained his tissue were then closed with a combination of 201 3-0 undyed Vicryl placing inverted interrupted manner followed by skin approximation with stainless steel clips. Operative foam was applied. Sterile cast padding and an Stephon wrap were applied. Tourniquet was now deflated. Patient was placed into a knee immobilizer.. Patient was now awakened from anesthesia extubated in the operating room and transferred to the postanesthesia care unit in stable and satisfactory condition. All sponge needle and isthmic counts are correct. No specimens are sent for pathology.
[2018-02-17] MEDS ORDERED: *HR* HYDROmorphone (PF) 1 MG/ML SYRINGE IVP PRN (00:39)
[2018-02-17] MEDS ORDERED: *HR* OxyCODONE Immed Rel 5 MG TABLET PO PRN (00:39)
[2018-02-17] MEDS ORDERED: Acetaminophen 325 MG TABLET PO PRN (00:39)
[2018-02-17] MEDS ORDERED: Naloxone 0.4 MG/ML INJ IVP PRN (00:39)
[2018-02-17] MEDS ORDERED: *HR* Labetalol 20 MG/4 ML SYRINGE IVP PRN (00:39)
[2018-02-17] MEDS ORDERED: *HR* Promethazine 25 MG/ML VIAL IVP PRN (00:39)
[2018-02-17] MEDS: *HR* OxyCODONE Immed Rel 5 MG TABLET PO PRN ×4 (00:55→22:40)
[2018-02-17 03:29] LABS: Basophils % 0.1 %; Hematocrit 31.5 % (35.3-44.9); Hemoglobin 10.1 g/dL (11.5-15.4); Immature Granulocytes % 0.4 % (0-4); Lymphocytes # 0.4 K/mcL (0.6-4.6); Lymphocytes % 4.5 %; Mean Corpuscular HGB Conc 32.1 g/dL (31.6-35.5); Mean Corpuscular Hemoglobin 30.3 pg (28.0-33.3); Mean Corpuscular Volume 94.6 fL (83.0-100.0); Mean Platelet Volume 9.6 fL (9.4-12.4); Monocytes # 0.1 K/mcL (0.0-1.3); Monocytes % 1.1 %; Platelet Count 218 K/mcL (140-400); Red Blood Count 3.33 M/mcL (3.82-4.97); Red Cell Distribution Width 12.2 % (11.5-14.5); Segmented Neutrophils % 93.9 %
[2018-02-17 03:33] LABS: Neutrophils # 8.7 K/mcL (1.6-8.9)
[2018-02-17 03:48] LABS: BUN/Creatinine Ratio 23 (6-26); Blood Urea Nitrogen 14 mg/dL (8-23); Calcium 8.7 mg/dL (8.6-10.3); Carbon Dioxide 19 mEq/L (23-29); Chloride 103 mEq/L (98-107); Glucose 117 mg/dL (70-105); Osmolality,Calculated 284 (280-300); Potassium 4.3 mEq/L (3.5-5.1); Sodium 136 mEq/L (136-145); eGFR For Non-African Americans > 60 (> 60)
[2018-02-17] MEDS: traMADol 50 MG TABLET PO PRN (04:23)
--- NOTE | 2018-02-17 07:55 | Internal Med Progress Note ---
Hospitalist Progress Note - Encounter Date of Encounter: 02/17/18 Time of Encounter: 09:30 - Subjective Interval History: Ms Buckley is currently admitted for tibial plateau fracture and is s/p ORIF. She remains moderate to high risk due to potential for worsening clinical status. Ms Buckley is washing up. No fever or chills. Having some pain and nausea. No CP or SOB. No diarrhea. - Exam Vitals: Temp Pulse Resp BP Pulse Ox 97.6 F 83 17 125/73 97 02/17/18 07:24 02/17/18 07:24 02/17/18 07:24 02/17/18 07:24 02/17/18 07:24 Exam: General: Alert and oriented. Comfortable at this time. Skin: Normal color, no rash, no lesions. H: Normocephalic. EENT: EOMI, pupils reactive. Mucus membranes moist. No lesion. Cardiovascular: Normal S1 & S2, no rubs, murmurs or gallops. No JVD. Pulse not tachycardic. Lungs: Normal breath sounds, no wheezes or crackles. Abdomen: Soft, non-tender, no rigidity. Normal bowel sounds. Extremities: Pulses palpable. Neurological: Normal cognition and motor skills. Pulses: Carotid and radial pulses normal +2. Rest of the physical exam is non contributory - Assessment and Plan (1) Anemia Current Visit: Yes Status: Resolved Assessment and Plan: Related to blood loss from fracture. (2) Tibial plateau fracture, right Current Visit: Yes Status: Acute Assessment and Plan: ORIF last evening. PT/OT and discharge planning. (3) Hypertension Current Visit: Yes Status: Chronic Assessment and Plan: Well-controlled Continue home medications (4) DVT prophylaxis Current Visit: Yes Status: Acute (5) Fall Current Visit: Yes Status: Acute Assessment and Plan: No further issues. Was mechanical fall. - Time Spent with Patient Total time spent is greater than 50% in coordination of care (as documented) at patient's floor/unit and/or counseling patient: Internal Medicine: Result - Labs CBC & Chem 7: 02/17/18 02:41 02/17/18 02:41 Labs: Short CBC 02/17/18 Range/Units 02:41 WBC 9.3 D (4.3-11.1) K/mcL Hgb 10.1 L (11.5-15.4) g/dL Hct 31.5 L (35.3-44.9) % Plt Count 218 (140-400) K/mcL Neutrophils # 8.7 (1.6-8.9) K/mcL BMP 02/17/18 02:41 Sodium 136 Potassium 4.3 Chloride 103 Carbon Dioxide 19 L BUN 14 Creatinine 0.61 Glucose 117 H Calcium 8.7 - ABG Interpretation ABG results: PT/INR, D-dimer PT 10.8 Seconds (9.4-12.1) 02/14/18 19:38 - Impressions Impressions Fluoroscopy 02/16/18 21:30 IMPRESSION: Intraprocedural fluoroscopic spot images as above. See separate procedure report for more information. D/ / 02/17/2018 07:09:13 Triston Fitzpatrick MD / dru Interpreting Provider: Triston Fitzpatrick MD Consult Discharge Plan - Plan Referrals: Paras Horvath MD [Primary Care Provider] - (1) Anemia Qualifiers: Anemia type: other cause Other causes of anemia: acute posthemorrhagic Qualified Code(s): D62 - Acute posthemorrhagic anemia (2) Tibial plateau fracture, right Qualifiers: Encounter type: initial encounter Fracture type: closed Qualified Code(s): S82.141A - Displaced bicondylar fracture of right tibia, initial encounter for closed fracture (3) Hypertension Qualifiers: Hypertension type: essential hypertension Qualified Code(s): I10 - Essential (primary) hypertension (5) Fall Qualifiers: Encounter type: subsequent encounter Qualified Code(s): W19.XXXD - Unspecified fall, subsequent encounter
[2018-02-17] MEDS ORDERED: Ondansetron 4 MG/2 ML VIAL IVP ONE (09:23)
[2018-02-17] MEDS ORDERED: Ondansetron 4 MG/2 ML VIAL IVP PRN (09:31)
--- NOTE | 2018-02-17 18:18 | Orthopedics Progress Note ---
Date of Encounter: 02/17/18 Time of Encounter: 18:16 Subjective Principal diagnosis: Right tibial plateau fracture Interval history: 02/17/2018. Patient postop day #1 (less than 24 hours) ORIF bicondylar fracture right tibial plateau. Pain is controlled. Patient is comfortable. He has been out of bed. Vital signs are stable. Patient is afebrile. Neurovascular exam is intact. Hemoglobin is in place. Reviewed OR findings with patient. Impression: POD #1 ORIF right tibial plateau fracture Recommendation: Orthopedic status appears stable. Patient to be ambulatory with strict nonweightbearing on the right lower extremity and use of the right knee immobilizer at all times. Discussed with the patient and potential need for short-term rehabilitation stay. financial services assistant and physical and occupational therapy consults in place. Objective Vital signs: Vital Signs Temp Pulse Resp BP Pulse Ox 02/17/18 15:55 98.9 F 84 16 129/77 97 02/17/18 11:29 98.8 F 77 16 128/74 93 02/17/18 07:24 97.6 F 83 17 125/73 97 02/17/18 04:30 97.8 F 77 14 114/72 96 02/17/18 03:30 97.8 F 74 15 127/75 96 02/17/18 02:30 98.1 F 15 15 136/79 96 02/17/18 02:00 98.0 F 73 15 145/80 95 02/17/18 01:30 97.9 F 72 15 145/82 98 02/17/18 01:15 97.9 F 76 15 148/83 98 02/17/18 01:00 97.9 F 77 15 136/81 98 02/17/18 00:45 96.1 F L 79 15 125/74 98 02/17/18 00:28 99.3 F 76 16 98/59 96 02/17/18 00:18 82 16 94/64 95 02/17/18 00:08 86 16 94/54 95 02/16/18 23:58 98.7 F 92 16 100/53 97 02/16/18 19:43 97 02/16/18 18:54 97.9 F 77 16 110/72 97 Intake and Output 02/17/18 02/17/18 02/17/18 07:59 15:59 23:59 Intake Total 700 / 700 200 / 200 Output Total 825 / 825 450 / 450 Balance -825 / -825 250 / 250 200 / 200 Intake: IV Fluids 100 / 100 100 / 100 Ancef 2,000 MG In 0.9 % Sodium 100 / 100 100 / 100 Chloride 100 ML @ 200 mls/hr IVPB Q8HR [facility] Rx#:[id number] Oral 600 / 600 100 / 100 Output: Estimated Blood Loss 25 / 25 Catheter 800 / 800 450 / 450 Other: Meal Lunch Lunch Percent of Meal Consumed 70% 75% - Labs CBC & BMP: 02/17/18 02:41 02/17/18 02:41 Labs: Abnormal lab results RBC 3.33 M/mcL (3.82-4.97) L 02/17/18 02:41 Hgb 10.1 g/dL (11.5-15.4) L 02/17/18 02:41 Hct 31.5 % (35.3-44.9) L 02/17/18 02:41 Lymphocytes # 0.4 K/mcL (0.6-4.6) L 02/17/18 02:41 Carbon Dioxide 19 mEq/L (23-29) L 02/17/18 02:41 Glucose 117 mg/dL (70-105) H 02/17/18 02:41 Consult Discharge Plan - Plan Referrals: Paras Horvath MD [Primary Care Provider] -
[2018-02-17] MEDS: *HR* Heparin 5,000 UNIT/ML VIAL SQ SCH (21:11)
[2018-02-18] MEDS: *HR* Heparin 5,000 UNIT/ML VIAL SQ SCH ×3 (05:20→21:16)
[2018-02-18] MEDS: traMADol 50 MG TABLET PO PRN ×2 (05:31→15:46)
[2018-02-18 05:44] LABS: Hematocrit 26.8 % (35.3-44.9); Hemoglobin 9.3 g/dL (11.5-15.4); Mean Corpuscular HGB Conc 34.7 g/dL (31.6-35.5); Mean Corpuscular Volume 89.3 fL (83.0-100.0); Mean Platelet Volume 9.4 fL (9.4-12.4); Platelet Count 231 K/mcL (140-400); Red Cell Distribution Width 12.1 % (11.5-14.5)
[2018-02-18 06:08] LABS: BUN/Creatinine Ratio 15 (6-26); Blood Urea Nitrogen 9 mg/dL (8-23); Calcium 8.8 mg/dL (8.6-10.3); Carbon Dioxide 28 mEq/L (23-29); Chloride 96 mEq/L (98-107); Glucose 143 mg/dL (70-105); Magnesium 1.7 mg/dL (1.6-2.6); Osmolality,Calculated 277 (280-300); Sodium 133 mEq/L (136-145); eGFR For Non-African Americans > 60 (> 60)
--- NOTE | 2018-02-18 07:51 | Internal Med Progress Note ---
Hospitalist Progress Note - Encounter Date of Encounter: 02/18/18 Time of Encounter: 09:30 - Subjective Interval History: Ms Buckley is currently admitted for tibial plateau fracture and is s/p ORIF. She remains moderate to high risk due to potential for worsening clinical status. Ms Buckley feels OK. She said she is having less pain today. She has been up and around some. No fever or chills. No CP or SOB. No GI issues. - Exam Vitals: Temp Pulse Resp BP Pulse Ox 99.1 F 90 14 112/73 96 02/18/18 03:11 02/18/18 03:11 02/18/18 03:11 02/18/18 03:11 02/18/18 03:11 Exam: General: Alert and oriented. Comfortable at this time. Skin: Normal color, no rash, no lesions. H: Normocephalic. EENT: EOMI, pupils reactive. Mucus membranes moist. No lesion. Cardiovascular: Normal S1 & S2, no rubs, murmurs or gallops. No JVD. Pulse not tachycardic at this time. Lungs: Normal breath sounds, no wheezes or crackles. Abdomen: Soft, non-tender, no rigidity. Normal bowel sounds. Extremities: Pulses palpable. Immobilizer in place on R leg. Neurological: Normal cognition and motor skills. Pulses: Carotid and radial pulses normal +2. Rest of the physical exam is non contributory - Assessment and Plan (1) Anemia Current Visit: Yes Status: Acute Assessment and Plan: H/H has remained stable today. (2) Tibial plateau fracture, right Current Visit: Yes Status: Acute Assessment and Plan: ORIF done. Non weight bearing. (3) Hypertension Current Visit: Yes Status: Chronic Assessment and Plan: Well-controlled Continue home medications (4) DVT prophylaxis Current Visit: Yes Status: Acute (5) Fall Current Visit: Yes Status: Acute Assessment and Plan: No further issues. Was mechanical fall. - Time Spent with Patient Total time spent is greater than 50% in coordination of care (as documented) at patient's floor/unit and/or counseling patient: Internal Medicine: Result - Labs CBC & Chem 7: 02/18/18 05:19 02/18/18 05:19 Labs: Short CBC 02/18/18 Range/Units 05:19 WBC 8.0 (4.3-11.1) K/mcL Hgb 9.3 L (11.5-15.4) g/dL Hct 26.8 L (35.3-44.9) % Plt Count 231 (140-400) K/mcL BMP 02/18/18 05:19 Sodium 133 L Potassium 4.0 Chloride 96 L Carbon Dioxide 28 BUN 9 Creatinine 0.59 L Glucose 143 H Calcium 8.8 - ABG Interpretation ABG results: PT/INR, D-dimer PT 10.8 Seconds (9.4-12.1) 02/14/18 19:38 - Impressions Impressions Fluoroscopy 02/16/18 21:30 IMPRESSION: Intraprocedural fluoroscopic spot images as above. See separate procedure report for more information. D/ / 02/17/2018 07:09:13 Triston Fitzpatrick MD / dru Interpreting Provider: Triston Fitzpatrick MD - VTE Documentation of Mechanical Device: Venous foot pump, device Consult Discharge Plan - Plan Referrals: Paras Horvath MD [Primary Care Provider] - (1) Anemia Qualifiers: Anemia type: other cause Other causes of anemia: acute posthemorrhagic Qualified Code(s): D62 - Acute posthemorrhagic anemia (2) Tibial plateau fracture, right Qualifiers: Encounter type: subsequent encounter Fracture type: closed Fracture healing : with routine healing Qualified Code(s): S82.141D - Displaced bicondylar fracture of right tibia, subsequent encounter for closed fracture with routine healing (3) Hypertension Qualifiers: Hypertension type: essential hypertension Qualified Code(s): I10 - Essential (primary) hypertension (5) Fall Qualifiers: Encounter type: subsequent encounter Qualified Code(s): W19.XXXD - Unspecified fall, subsequent encounter
[2018-02-18] MEDS: *HR* OxyCODONE Immed Rel 5 MG TABLET PO PRN (09:54)
--- NOTE | 2018-02-18 14:04 | Orthopedics Progress Note ---
Date of Encounter: 02/18/18 Time of Encounter: 14:02 Subjective Principal diagnosis: Right tibial plateau fracture Interval history: 02/17/2018. Patient postop day #1 (less than 24 hours) ORIF bicondylar fracture right tibial plateau. Pain is controlled. Patient is comfortable. He has been out of bed. Vital signs are stable. Patient is afebrile. Neurovascular exam is intact. Hemoglobin is in place. Reviewed OR findings with patient. Impression: POD #1 ORIF right tibial plateau fracture Recommendation: Orthopedic status appears stable. Patient to be ambulatory with strict nonweightbearing on the right lower extremity and use of the right knee immobilizer at all times. Discussed with the patient and potential need for short-term rehabilitation stay. early childhood services coordinator and physical and occupational therapy consults in place. 02/18/2018. Patient postop day #2 ORIF right tibial plateau fracture. Patient is improving every day. She has been ambulatory. Pain is well managed at this time. Vital signs are stable. Patient is afebrile. Braces intact. Dressings are dry. Neurovascular exam intact. Hemoglobin 9.3 today. Impression: POD #2 ORIF right tibial plateau fracture Recommendations: Orthopedic status remained stable. Patient can be discharged at any time. Orthopedic limitations will be strict nonweightbearing on the right lower extremity and maintaining the right knee immobilizer and the current Bioclusive dressing. We will need follow-up with me in about 2 weeks' time after discharge. Objective Vital signs: Vital Signs Temp Pulse Resp BP Pulse Ox 02/18/18 10:47 98.0 F 81 16 110/74 98 02/18/18 07:54 98.3 F 87 18 116/70 98 02/18/18 03:11 99.1 F 90 14 112/73 96 02/17/18 23:33 98.3 F 89 16 113/63 95 02/17/18 18:34 98.6 F 84 16 113/64 97 02/17/18 15:55 98.9 F 84 16 129/77 97 Intake and Output 02/17/18 02/18/18 02/18/18 23:59 07:59 15:59 Intake Total 200 / 200 Output Total 975 / 975 850 / 850 Balance -775 / -775 -850 / -850 Intake: IV Fluids 100 / 100 Ancef 2,000 MG In 0.9 % Sodium 100 / 100 Chloride 100 ML @ 200 mls/hr IVPB Q8HR [facility] Rx#:[id number] Oral 100 / 100 Output: Urine 975 / 975 850 / 850 Other: Meal Lunch Percent of Meal Consumed 75% - Labs CBC & BMP: 02/18/18 05:19 02/18/18 05:19 Labs: Abnormal lab results RBC 3.00 M/mcL (3.82-4.97) L 02/18/18 05:19 Hgb 9.3 g/dL (11.5-15.4) L 02/18/18 05:19 Hct 26.8 % (35.3-44.9) L 02/18/18 05:19 Lymphocytes # 0.4 K/mcL (0.6-4.6) L 02/17/18 02:41 Sodium 133 mEq/L (136-145) L 02/18/18 05:19 Chloride 96 mEq/L (98-107) L 02/18/18 05:19 Creatinine 0.59 mg/dL (0.60-1.20) L 02/18/18 05:19 Glucose 143 mg/dL (70-105) H 02/18/18 05:19 Calculated Osmolality 277 (280-300) L 02/18/18 05:19 - VTE Documentation of Mechanical Device: Venous foot pump, device Consult Discharge Plan - Plan Referrals: Paras Horvath MD [Primary Care Provider] -
[2018-02-19] MEDS: traMADol 50 MG TABLET PO PRN (03:58)
[2018-02-19] MEDS: *HR* Heparin 5,000 UNIT/ML VIAL SQ SCH (07:38)
[2018-02-19 10:59] VITALS: BP 108/73
--- NOTE | 2018-02-19 12:52 | Discharge Summary ---
- NOTES TO OUTPATIENT PROVIDER Notes to Outpatient Provider: Pt had mechanical fall and had R tibial plateau fracture. Had ORIF. Has done well. Going home with [facility]. Nonweightbearing R leg. Immobilizer. Orders not resulted at time of discharge: Pending orders 02/15/18 13:54 EKG [ECG 12 lead ECG] [ECG] Routine 02/16/18 21:30 XR tibia fibula RT [XR] Routine Date of Encounter: 02/19/18 Time of Encounter: 12:49 - Discharge Diagnosis (1) Anemia Priority: Secondary Status: Acute Qualifiers: Anemia type: other cause Other causes of anemia: acute posthemorrhagic Qualified Code(s): D62 - Acute posthemorrhagic anemia (2) Tibial plateau fracture, right Priority: Primary Status: Resolved Qualifiers: Encounter type: subsequent encounter Fracture type: closed Fracture healing: with routine healing Qualified Code(s): S82.141D - Displaced bicondylar fracture of right tibia, subsequent encounter for closed fracture with routine healing (3) Hypertension Priority: Secondary Status: Chronic Qualifiers: Hypertension type: essential hypertension Qualified Code(s): I10 - Essential (primary) hypertension (4) Fall Priority: Secondary Status: Resolved Qualifiers: Encounter type: subsequent encounter Qualified Code(s): W19.XXXD - Unspecified fall, subsequent encounter Hospital course: Ms. Buckley is a 62 year old female presented to ED after a mechanical fall. She was found to have R tibial plateau fracture and subsequently admitted. Ms Buckley was admitted to [facility]. She was seen by orthopedics and underwent ORIF. Her leg was immobilized post operatively. She was seen by PT and OT and recommended to go home. She has done well post op. She will follow with PCP and ortho. Today she is afebrile and feels well. She is ready for discharge home. Discharge discussed with: patient, family - Time Spent with Patient Total time spent providing and/or coordinating discharge services: 40min - Discharge Medications Prescriptions: OxyCODONE Immed Rel [Roxicodone 5 MG] 10 mg PO Q6HR PRN 5 Days #20 tablet PRN Reason: Severe Pain Rivaroxaban [Xarelto] 10 mg PO 1700 #10 tablet Tramadol HCl [Ultram] 50 mg PO TID PRN 5 Days #15 tab PRN Reason: Moderate Pain Home Medications: Atenolol [Tenormin] 12.5 mg PO DAILY 02/14/18 [History] Atorvastatin [Lipitor] 10 mg PO HS 02/14/18 [History] Buspirone HCl [Buspar] 15 mg PO BID 02/14/18 [History] Cholecalciferol (D-3) [Vitamin D] 5,000 unit PO DAILY 02/14/18 [History] Esomeprazole Magnesium [Nexium] 40 mg PO DAILY 02/14/18 [History] Ferrous Sulfate [Iron] 325 mg PO TID 02/14/18 [History] Lisinopril [Zestril] 10 mg PO DAILY 02/14/18 [History] Magnesium Oxide [Magnesium] 400 mg PO BID 02/14/18 [History] Megestrol Acetate [Megace] 40 mg PO BID 02/14/18 [History] Sodium Chloride [Sodium Chloride Tab] 1 gm PO DAILY 02/14/18 [History] traZODone [TraZODone] 25 mg PO HS 02/14/18 [History] Docusate [Colace] 100 mg PO BID capsule 02/19/18 [Rx] OxyCODONE Immed Rel [Roxicodone 5 MG] 10 mg PO Q6HR PRN 5 Days #20 tablet [Rx] Rivaroxaban [Xarelto] 10 mg PO 1700 #10 tablet 02/19/18 [Rx] Tramadol HCl [Ultram] 50 mg PO TID PRN 5 Days #15 tab 02/19/18 [Rx] Allergies/Adverse Reactions: 3 Allergy/AdvReac Type Severity Reaction Status Date / Time No Known Allergies Allergy Verified 10/29/16 16:21 Date of admission: 02/14/18 21:53 Primary care physician: Paras Horvath MD Consults: 02/14/18 22:04 Consult to Pastoral Services [CONS] Routine Comment: 02/17/18 00:39 Consult to Occupational Therapy [CONS] Routine Comment: Evaluate, develop and implement POC Reason for Consult: ADL Does patient have active BEDREST order?: No Is patient medically & hemodynamically stable?: Yes Consult to Physical Therapy [CONS] Routine Comment: Evaluate, develop and implement POC Reason for Consult: NWB Does patient have active BEDREST order?: No Is patient medically & hemodynamically stable?: Yes Consult to Job Coach [CONS] Routine Reason for SW Consult: dc Discharging clinician: Kamar Doty Anticipated date of discharge: 02/19/18 - Constitutional Vitals: Temp Pulse Resp BP Pulse Ox 97.8 F 74 16 108/73 99 02/19/18 10:57 02/19/18 10:57 02/19/18 10:57 02/19/18 10:57 02/19/18 10:57 General appearance: Present: A&O X 3, pleasant, answers questions appropriately Exam: See below - Head Head exam: Present: atraumatic, normocephalic - Eye Eye exam: Present: EOMI, conjuntiva pink - ENT ENT exam: Present: mucous membranes moist - Respiratory Respiratory exam: Present: CTAB. Absent: rales, rhonchi, wheezes - Cardiovascular Cardiovascular exam: Present: RRR. Absent: tachycardia - GI/Abdominal GI/Abdominal exam: Present: soft. Absent: tenderness - Extremities Exam Extremities exam: Present: warm Additional comments: Immobilizer on R leg - Neurological Exam Neurological exam: Present: alert, oriented X3 - Skin Skin exam: Present: dry, warm. Absent: rash - Patient Status Disposition: Home Health Service Condition: Fair Functional capacity at discharge: uses cane/walker Overall status at discharge: patient is progressing back to baseline - Discharge Instructions Instructions: Tramadol (By mouth), Oxycodone, Slow Release (By mouth), Rivaroxaban (By mouth), Open Reduction and Internal Fixation of a Leg Fracture ( DC) Follow Up With: Steven Smalls DO [Non-Partnered Physician] - 03/02/18 10:15 am (Follow up in 2 weeks.) Paras Horvath MD [Primary Care Provider] - - Diet and Activity Activity: as per physical therapy (Strict non weightbearing R leg. Maintain Knee immobilize and dressing.) Diet: advance to your usual diet - VTE Documentation of Mechanical Device: Venous foot pump, device
--- NOTE | 2018-02-19 12:57 | Physician Discharge Referral ---
Home Health/Hosp Referral Info Transfer to: Home Health Provider in Charge Post Discharge: PCP - Diagnosis (1) Anemia Priority: Secondary Status: Acute (2) Tibial plateau fracture, right Priority: Primary Status: Resolved (3) Hypertension Priority: Secondary Status: Chronic (4) Fall Priority: Secondary Status: Resolved - Respiratory Orders None Smoking Cessation: Smoking cessation has been advised. For more information, call the [address] Tobacco Quit Line at 4-004-IWTW-NOW. - Dressing/Wound Care Site: Maintain bioocclusive dressing on R knee. - Diet/Nutrition Diet/Nutrition Orders: Regular - Activity Activity Orders: Up ad levi, Walker Activity: List: Strict non weightbearing R leg. Maintain immobilizer. - Services Needed Following services are medically necessary services: Nursing, Home Health Aide, Physical Therapy, Occupational Therapy - Transfer Medications Prescriptions: OxyCODONE Immed Rel [Roxicodone 5 MG] 10 mg PO Q6HR PRN 5 Days #20 tablet PRN Reason: Severe Pain Tramadol HCl [Ultram] 50 mg PO TID PRN 5 Days #15 tab PRN Reason: Moderate Pain Home Medications: Atenolol [Tenormin] 12.5 mg PO DAILY 02/14/18 [History] Atorvastatin [Lipitor] 10 mg PO HS 02/14/18 [History] Buspirone HCl [Buspar] 15 mg PO BID 02/14/18 [History] Cholecalciferol (D-3) [Vitamin D] 5,000 unit PO DAILY 02/14/18 [History] Esomeprazole Magnesium [Nexium] 40 mg PO DAILY 02/14/18 [History] Ferrous Sulfate [Iron] 325 mg PO TID 02/14/18 [History] Lisinopril [Zestril] 10 mg PO DAILY 02/14/18 [History] Magnesium Oxide [Magnesium] 400 mg PO BID 02/14/18 [History] Megestrol Acetate [Megace] 40 mg PO BID 02/14/18 [History] Sodium Chloride [Sodium Chloride Tab] 1 gm PO DAILY 02/14/18 [History] traZODone [TraZODone] 25 mg PO HS 02/14/18 [History] Docusate [Colace] 100 mg PO BID capsule 02/19/18 [Rx] OxyCODONE Immed Rel [Roxicodone 5 MG] 10 mg PO Q6HR PRN 5 Days #20 tablet [Rx] Tramadol HCl [Ultram] 50 mg PO TID PRN 5 Days #15 tab 02/19/18 [Rx] Allergies/Adverse Reactions: 3 Allergy/AdvReac Type Severity Reaction Status Date / Time No Known Allergies Allergy Verified 10/29/16 16:21 Certification: Further, I certify that my clinical findings support that this patient is homebound (i.e. absences from home require considerable and taxing effort and are for medical reasons or voodoo services or infrequently or short duration when for other reasons) because: Homebound Reason: Patient requires assistance of a person or device to safely leave home, Post-surgery restriction and or conditions limit ability to leave home Attestation: My signature below is to certify that this patient is under my care and that I, or nurse practitioner, or a physician's assistant pastry chef working with me, has a face-to -face encounter with this patient.
--- NOTE | 2018-02-24 20:38 | Electrocardiograph Report ---
[place] [id number] Test Date: 2018-02-16 Pat Name: Aminata Buckley Department: 115 Room: [facility] Gender: F Tobacco Checkout Clerk: : 1955 Requested By: Kamar Doty Order Number: [id number] Reading MD: Ronna Caraballo Measurements Intervals [place] Rate: 68 P: 40 HI: 166 QRS: -15 QRSD: 81 T: -5 QT: 408 QTc: 425 Interpretive Statements SINUS RHYTHM LOW QRS VOLTAGE IN PRECORDIAL LEADS Electronically Signed On 02-24-2018 20:36:20 EDT by Ronna Caraballo
== END 2018-02-19 14:25 | disposition home health service (06) | DRG 493 ==
LOC: EMEROOARM 17:18 → 3NENU 17:18 → SUATTDRO 21:53
PROVIDERS: ADMIT Internal Medicine; ATTEND Internal Medicine

== ENCOUNTER 2018-02-25 17:55 | Inpatient (IN) ==
[2018-02-25] MEDS ORDERED: Ondansetron 4 MG/2 ML VIAL IVP ONE (18:02)
[2018-02-25] MEDS ORDERED: Isovue-370 500 ML INFUS..BTL IV ONE ×2 (18:04→19:24)
--- NOTE | 2018-02-25 18:06 | Emergency Department Note ---
Disposition Clinical Impression: Non-STEMI (non-ST elevated myocardial infarction), Left lower quadrant pain Fever Qualifiers: Fever type: unspecified Qualified Code(s): R50.9 - Fever, unspecified Vomiting Qualifiers: Vomiting type: unspecified Vomiting Intractability: non-intractable Nausea presence: with nausea Qualified Code(s): R11.2 - Nausea with vomiting, unspecified Disposition: Still a Patient Condition: Fair Referrals: Paras Horvath MD [Primary Care Provider] - Forms: ED Satisfaction Letter, Work/School Release Time of Disposition: 19:26 General Adult HPI - General Chief complaint: ED Abdominal Pain Stated complaint: flu like symptoms Time Seen by Provider: 02/25/18 18:02 Source: patient, EMS Mode of arrival: EMS Limitations: no limitations - History of Present Illness HPI Narrative: This is a 62-year-old female who appears much older than her stated age who is status post repair of a proximal tibia/fibula fracture with plates and screws, who states that starting 12 hours prior to arrival she has had fever with chills and numerous episodes of vomiting. She also reports primarily left-sided abdominal pain. - Related Data Home Medications Medication Instructions Recorded Confirmed Atenolol [Tenormin] 12.5 mg PO DAILY 02/14/18 02/14/18 Atorvastatin [Lipitor] 10 mg PO HS 02/14/18 02/14/18 Buspirone HCl [Buspar] 15 mg PO BID 02/14/18 02/14/18 Cholecalciferol (D-3) [Vitamin D] 5,000 unit PO DAILY 02/14/18 02/14/18 Esomeprazole Magnesium [Nexium] 40 mg PO DAILY 02/14/18 02/14/18 Ferrous Sulfate [Iron] 325 mg PO TID 02/14/18 02/14/18 Lisinopril [Zestril] 10 mg PO DAILY 02/14/18 02/14/18 Magnesium Oxide [Magnesium] 400 mg PO BID 02/14/18 02/14/18 Megestrol Acetate [Megace] 40 mg PO BID 02/14/18 02/14/18 Sodium Chloride [Sodium Chloride 1 gm PO DAILY 02/14/18 02/14/18 Tab] traZODone [TraZODone] 25 mg PO HS 02/14/18 02/14/18 Previous Rx's Medication Instructions Recorded Docusate [Colace] 100 mg PO BID capsule 02/19/18 OxyCODONE Immed Rel [Roxicodone 5 10 mg PO Q6HR PRN 5 Days #20 tablet 02/19/18 MG] Rivaroxaban [Xarelto] 10 mg PO 1700 #10 tablet 02/19/18 Tramadol HCl [Ultram] 50 mg PO TID PRN 5 Days #15 tab 02/19/18 Allergies Allergy/AdvReac Type Severity Reaction Status Date / Time No Known Allergies Allergy Verified 02/25/18 18:07 All systems ED: reviewed and negative except as stated. Constitutional: Reports: fever, chills Gastrointestinal: Reports: abdominal pain, nausea, vomiting Past Medical History - Past Medical History Medical history: Reports: coronary artery disease Surgical history: Reports: non-contributory Psychiatric history: Reports: no psych history - Social History Smoking Status: Never smoker Smokeless Tobacco Status: No Alcohol use: Reports: none Drug use: Reports: none Physical Exam - General Limitations: no limitations General appearance: alert, in distress (In minimal distress) - Head Head exam: atraumatic, normocephalic, normal inspection - Eye Eye exam: Present: normal appearance, PERRL, EOMI. Absent: scleral icterus - Chest Chest inspection: Present: normal inspection, symmetric chest wall rise - Respiratory Respiratory exam: Present: normal lung sounds bilaterally - Cardiovascular Cardiovascular exam: Present: regular rate, normal rhythm, normal heart sounds - Abdominal Exam Abdominal exam: Present: soft, tenderness, distention. Absent: guarding, rebound, rigidity Abdominal tenderness: Present: LUQ, LLQ - Extremities Exam Extremities exam: Present: normal inspection, full ROM. Absent: tenderness, pedal edema - Neurological Exam Neurological exam: Present: alert, oriented X3, CN II-XII intact. Absent: motor sensory deficit - Psychiatric Psychiatric exam: Present: normal affect, normal mood - Skin Skin exam: Present: warm, dry, intact, normal color, other (The incision was inspected after removal of the knee immobilizer, the Stephon wrap, and the cotton batting, and shows no erythema whatsoever.) Course Course Narrative: This is a 62-year-old female with 12 hours of fever and chills along with nausea and vomiting with abdominal pain. Vital Signs Temperature 97.9 F 02/25/18 18:01 Pulse Rate 115 02/25/18 18:01 Respiratory Rate 16 02/25/18 18:01 Blood Pressure 122/92 02/25/18 18:01 O2 Sat by Pulse Oximetry 99 02/25/18 18:01 Temperature 97.9 F 02/25/18 18:01 Pulse Rate 115 02/25/18 18:01 Respiratory Rate 16 02/25/18 18:01 Blood Pressure 122/92 02/25/18 18:01 O2 Sat by Pulse Oximetry 99 02/25/18 18:01 Oxygen Delivery Oxygen Delivery Room Air Medical Decision Making - MDM Narrative Medical decision making narrative: elevated toponin consistent with NSTEMI ASA given heparin started signed out to Dr Carrasco - Lab Data Lab results reviewed: Yes I reviewed the patient's lab results. Lab results narrative: CBC showed leukocytosis at 14.7, thrombocytosis at 553, anemia at 9.0/26.9 BMP unremarkable troponin elevated at 1.73 Result diagrams: 02/25/18 18:02 02/25/18 18:02 Lab Results 02/25/18 02/25/18 Range/Units 18:02 18:02 WBC 14.7 H (4.3-11.1) K/mcL RBC 2.98 L (3.82-4.97) M/mcL Hgb 9.0 L (11.5-15.4) g/dL Hct 26.9 L (35.3-44.9) % MCV 90.3 (83.0-100.0) fL MCH 30.2 (28.0-33.3) pg MCHC 33.5 (31.6-35.5) g/dL RDW 12.7 (11.5-14.5) % Plt Count 553 H (140-400) K/mcL MPV 8.8 L (9.4-12.4) fL Immature Gran % 0.6 (0-4) % Seg Neutrophils % 93.2 % Lymphocytes % 3.1 % Monocytes % 3.0 % Eosinophils % 0.0 % Basophils % 0.1 % Neutrophils # 13.7 H (1.6-8.9) K/mcL Lymphocytes # 0.5 L (0.6-4.6) K/mcL Monocytes # 0.4 (0.0-1.3) K/mcL Eosinophils # 0.0 (0.0-0.6) K/mcL Basophils # 0.0 (0.0-0.2) K/mcL Sodium 130 L (136-145) mEq/L Potassium 3.6 (3.5-5.1) mEq/L Chloride 93 L (98-107) mEq/L Carbon Dioxide 26 (23-29) mEq/L BUN 14 (8-23) mg/dL Creatinine 0.74 (0.60-1.20) mg/dL Est GFR ( Amer) > 60 (> 60) Est GFR (Non-Af Amer) > 60 (> 60) BUN/Creatinine Ratio 19 (6-26) Glucose 187 H (70-105) mg/dL Calculated Osmolality 275 L (280-300) Calcium 9.0 (8.6-10.3) mg/dL Total Bilirubin 0.7 (0.3-1.0) mg/dL Direct Bilirubin 0.3 H (0.0-0.2) mg/dL Indirect Bilirubin 0.4 (0.0-1.2) mg/dL AST 27 (13-39) Units/L ALT 13 (7-52) Units/L Alkaline Phosphatase 66 (34-104) Units/L Troponin I 1.73 H* (< 0.04) ng/mL Serum Total Protein 6.5 (6.4-8.9) g/dL Albumin 3.6 (3.5-5.7) g/dL Globulin 2.9 (2.4-3.5) g/dL Albumin/Globulin Ratio 1.2 (1.1-2.2) - EKG Data EKG #1 EKG attestation: Yes I reviewed and interpreted this EKG. EKG results narrative: ECG showed sinus tachycardia, 111 bpm, normal intervals, normal axis, normal ST and T waves Critical Care Time Critical Care Time: Yes Total Critical Care Time: 20 Attestation: 20 min CCT invested independent of separately billable procedures
[2018-02-25 18:43] LABS: Basophils % 0.1 %; Hematocrit 26.9 % (35.3-44.9); Immature Granulocytes % 0.6 % (0-4); Lymphocytes # 0.5 K/mcL (0.6-4.6); Lymphocytes % 3.1 %; Mean Corpuscular HGB Conc 33.5 g/dL (31.6-35.5); Mean Corpuscular Hemoglobin 30.2 pg (28.0-33.3); Mean Corpuscular Volume 90.3 fL (83.0-100.0); Mean Platelet Volume 8.8 fL (9.4-12.4); Monocytes # 0.4 K/mcL (0.0-1.3); Neutrophils # 13.7 K/mcL (1.6-8.9); Platelet Count 553 K/mcL (140-400); Red Blood Count 2.98 M/mcL (3.82-4.97); Red Cell Distribution Width 12.7 % (11.5-14.5); Segmented Neutrophils % 93.2 %
[2018-02-25 18:53] LABS: Alanine Aminotransferase 13 Units/L (7-52); Albumin 3.6 g/dL (3.5-5.7); Albumin/Globulin Ratio 1.2 (1.1-2.2); Alkaline Phosphatase 66 Units/L (34-104); Aspartate Amino Transferase 27 Units/L (13-39); BUN/Creatinine Ratio 19 (6-26); Bilirubin,Direct 0.3 mg/dL (0.0-0.2); Bilirubin,Indirect 0.4 mg/dL (0.0-1.2); Bilirubin,Total 0.7 mg/dL (0.3-1.0); Blood Urea Nitrogen 14 mg/dL (8-23); Carbon Dioxide 26 mEq/L (23-29); Chloride 93 mEq/L (98-107); Globulin 2.9 g/dL (2.4-3.5); Glucose 187 mg/dL (70-105); Osmolality,Calculated 275 (280-300); Potassium 3.6 mEq/L (3.5-5.1); Sodium 130 mEq/L (136-145); Total Protein 6.5 g/dL (6.4-8.9); eGFR For Non-African Americans > 60 (> 60)
[2018-02-25 18:56] LABS: Troponin I 1.73 ng/mL (< 0.04)
[2018-02-25] MEDS ORDERED: *HR* Heparin 5,000 UNIT/ML VIAL IVP ONE (19:27)
[2018-02-25] MEDS ORDERED: 0.9 % Sodium Chloride 1,000 ML IVC ONE (20:22)
--- NOTE | 2018-02-25 20:25 | Emergency Department Note ---
Disposition Clinical Impression: Non-STEMI (non-ST elevated myocardial infarction), Left lower quadrant pain Fever Qualifiers: Fever type: unspecified Qualified Code(s): R50.9 - Fever, unspecified Vomiting Qualifiers: Vomiting type: unspecified Vomiting Intractability: non-intractable Nausea presence: with nausea Qualified Code(s): R11.2 - Nausea with vomiting, unspecified Disposition: Admitted As Inpatient Condition: Fair Time of Disposition: 20:25 General Adult HPI - General Chief complaint: ED Abdominal Pain Stated complaint: flu like symptoms Time Seen by Provider: 02/25/18 18:02 Source: patient, EMS Mode of arrival: EMS Limitations: no limitations - History of Present Illness Pain Scale: 0 - Related Data Home Medications Medication Instructions Recorded Confirmed Atenolol [Tenormin] 12.5 mg PO DAILY 02/14/18 02/14/18 Atorvastatin [Lipitor] 10 mg PO HS 02/14/18 02/14/18 Buspirone HCl [Buspar] 15 mg PO BID 02/14/18 02/14/18 Cholecalciferol (D-3) [Vitamin D] 5,000 unit PO DAILY 02/14/18 02/14/18 Esomeprazole Magnesium [Nexium] 40 mg PO DAILY 02/14/18 02/14/18 Ferrous Sulfate [Iron] 325 mg PO TID 02/14/18 02/14/18 Lisinopril [Zestril] 10 mg PO DAILY 02/14/18 02/14/18 Magnesium Oxide [Magnesium] 400 mg PO BID 02/14/18 02/14/18 Megestrol Acetate [Megace] 40 mg PO BID 02/14/18 02/14/18 Sodium Chloride [Sodium Chloride 1 gm PO DAILY 02/14/18 02/14/18 Tab] traZODone [TraZODone] 25 mg PO HS 02/14/18 02/14/18 Previous Rx's Medication Instructions Recorded Docusate [Colace] 100 mg PO BID capsule 02/19/18 OxyCODONE Immed Rel [Roxicodone 5 10 mg PO Q6HR PRN 5 Days #20 tablet 02/19/18 MG] Rivaroxaban [Xarelto] 10 mg PO 1700 #10 tablet 02/19/18 Tramadol HCl [Ultram] 50 mg PO TID PRN 5 Days #15 tab 02/19/18 Allergies Allergy/AdvReac Type Severity Reaction Status Date / Time No Known Allergies Allergy Verified 02/25/18 18:07 Constitutional: Reports: fever, chills Gastrointestinal: Reports: abdominal pain, nausea, vomiting Past Medical History - Past Medical History Medical history: Reports: coronary artery disease Surgical history: Reports: non-contributory Psychiatric history: Reports: no psych history - Social History Smoking Status: Never smoker Smokeless Tobacco Status: No Alcohol use: Reports: none Drug use: Reports: none Physical Exam - General Limitations: no limitations General appearance: alert, in distress (In minimal distress) Course - Reevaluation(s) Reevaluation #1: Patient was signed out from the daytime team. Patient presenting with generalized malaise and fatigue, subjective fever, nausea and vomiting. She recently had a tibial plateau fracture and is status post repair. Is on Xarelto for DVT prophylaxis. Came in tachycardic. No chest pain. CTA chest, abdomen and pelvis did not show any PE or acute abdominal abnormality. She will be admitted to hospitalist service on heparin for an NSTEMI. Patient accepted for admission to the hospitalist service under Dr. Alejandro. Time: 20:23 Vital Signs Temperature 97.9 F 02/25/18 18:01 Pulse Rate 115 02/25/18 18:01 Respiratory Rate 16 02/25/18 18:01 Blood Pressure 122/92 02/25/18 18:01 O2 Sat by Pulse Oximetry 99 02/25/18 18:01 Temperature 97.9 F 02/25/18 18:01 Pulse Rate 130 02/25/18 20:11 Respiratory Rate 24 02/25/18 20:11 Blood Pressure 141/99 02/25/18 20:11 O2 Sat by Pulse Oximetry 97 02/25/18 20:11 Oxygen Delivery Oxygen Delivery Room Air Medical Decision Making - Lab Data Result diagrams: 02/25/18 18:02 02/25/18 18:02 Lab Results 02/25/18 02/25/18 Range/Units 18:02 18:02 WBC 14.7 H (4.3-11.1) K/mcL RBC 2.98 L (3.82-4.97) M/mcL Hgb 9.0 L (11.5-15.4) g/dL Hct 26.9 L (35.3-44.9) % MCV 90.3 (83.0-100.0) fL MCH 30.2 (28.0-33.3) pg MCHC 33.5 (31.6-35.5) g/dL RDW 12.7 (11.5-14.5) % Plt Count 553 H (140-400) K/mcL MPV 8.8 L (9.4-12.4) fL Immature Gran % 0.6 (0-4) % Seg Neutrophils % 93.2 % Lymphocytes % 3.1 % Monocytes % 3.0 % Eosinophils % 0.0 % Basophils % 0.1 % Neutrophils # 13.7 H (1.6-8.9) K/mcL Lymphocytes # 0.5 L (0.6-4.6) K/mcL Monocytes # 0.4 (0.0-1.3) K/mcL Eosinophils # 0.0 (0.0-0.6) K/mcL Basophils # 0.0 (0.0-0.2) K/mcL Sodium 130 L (136-145) mEq/L Potassium 3.6 (3.5-5.1) mEq/L Chloride 93 L (98-107) mEq/L Carbon Dioxide 26 (23-29) mEq/L BUN 14 (8-23) mg/dL Creatinine 0.74 (0.60-1.20) mg/dL Est GFR ( Amer) > 60 (> 60) Est GFR (Non-Af Amer) > 60 (> 60) BUN/Creatinine Ratio 19 (6-26) Glucose 187 H (70-105) mg/dL Calculated Osmolality 275 L (280-300) Calcium 9.0 (8.6-10.3) mg/dL Total Bilirubin 0.7 (0.3-1.0) mg/dL Direct Bilirubin 0.3 H (0.0-0.2) mg/dL Indirect Bilirubin 0.4 (0.0-1.2) mg/dL AST 27 (13-39) Units/L ALT 13 (7-52) Units/L Alkaline Phosphatase 66 (34-104) Units/L Troponin I 1.73 H* (< 0.04) ng/mL Serum Total Protein 6.5 (6.4-8.9) g/dL Albumin 3.6 (3.5-5.7) g/dL Globulin 2.9 (2.4-3.5) g/dL Albumin/Globulin Ratio 1.2 (1.1-2.2) Attestation Statement - Attestation Attestation: I examined this patient and my medical decision-making was reviewed with the Resident Physician. I agree with the documented findings, disposition and treatment plan as described except to the extent set forth below. received in sign out, suspect uti, sepsis, demand ischemia, negative cta for pe. Start antibiotics, riojas cultures, IV fluids, admit for further management and cards consult. Will start heparin in the event this is acs, will need cardio for eval of ACS versus NSTEMI II.
[2018-02-25 21:42] LABS: Bilirubin,Urine Negative (Negative); Blood,Urine Moderate (Negative); Clarity,Urine Clear (Clear); Color,Urine Yellow (Yellow); Glucose,Urine (UA) Normal (Normal); Ketones,Urine 15 mg/dL (Negative); Leukocyte Esterase,Urine Moderate (Negative); Nitrite,Urine Positive (Negative); Protein,Urine 30 mg/dL (Neg-Trace); Specific Gravity,Urine > 1.030 (1.010-1.025)
[2018-02-25 21:43] LABS: Bacteria,Urine Many per hpf (None-Few); Hyaline Casts,Urine None Seen per lpf (None-Few); Squamous Epithelial Cell,Urine Many per lpf (None-Few); WBC,Urine TNTC per hpf (0-3)
[2018-02-25] MEDS ORDERED: *HR* Heparin 5,000 UNIT/ML VIAL IVP PRN ×2 (21:52)
[2018-02-25] MEDS ORDERED: Heparin 25,000 UNIT/500 ML D5W 25,000 UNIT/500 ML BAG IVC SCH (22:00)
[2018-02-25] MEDS ORDERED: Piperacillin/Tazobactam 3.375 GM in 0.9 % Sodium Chloride Mini Bag 100 ML IVPB ONE (22:03)
[2018-02-25 23:37] LABS: Heparin anti-factor XA UFH 0.3 IU/mL (0.30-0.70)
[2018-02-25 23:38] LABS: INR 1.4; Prothrombin Time 15.3 Seconds (9.4-12.1)
[2018-02-26 00:16] LABS: Hematocrit 25.6 % (35.3-44.9); Hemoglobin 8.5 g/dL (11.5-15.4); Mean Corpuscular HGB Conc 33.2 g/dL (31.6-35.5); Mean Corpuscular Hemoglobin 30.6 pg (28.0-33.3); Mean Corpuscular Volume 92.1 fL (83.0-100.0); Mean Platelet Volume 9.1 fL (9.4-12.4); Platelet Count 513 K/mcL (140-400); Red Blood Count 2.78 M/mcL (3.82-4.97); Red Cell Distribution Width 12.6 % (11.5-14.5)
[2018-02-26] MEDS ORDERED: 0.9 % Sodium Chloride 1,000 ML ONE ×2 (02:58→04:56)
[2018-02-26] MEDS ORDERED: Naloxone 0.4 MG/ML INJ IVP PRN (03:46)
--- NOTE | 2018-02-26 03:52 | Procedure Note ---
<Jaime Theodore - Last Filed: 02/26/18 03:49> Date of procedure: 02/26/18 Pre-op diagnosis: hypotension Post-op diagnosis: same Procedure: A time-out was completed verifying correct patient, procedure, site, positioning, and special equipment if applicable. The patient was placed in a dependent position appropriate for central line placement based on the vein to be cannulated. The patients left groin was prepped and draped in sterile fashion. 1% Lidocaine was used to anesthetize the surrounding skin area. A triple lumen 9-Japanese Cordis catheter was introduced into the the femoral vein using the Seldinger technique and under ultrasound guidance. The catheter was threaded smoothly over the guide wire and appropriate blood return was obtained. Each lumen of the catheter was evacuated of air and flushed with sterile saline. The catheter was then sutured in place to the skin and a sterile dressing applied. Perfusion to the extremity distal to the point of catheter insertion was checked and found to be adequate. Dr. aCsey was present. Anesthesia: local Surgeon: Jaime Theodore Was there an mechanic assistant present: No Estimated blood loss (cc): 10 Specimen: none Pathology: none sent Condition: critical Disposition: ICU <Juan C Casey - Last Filed: 02/26/18 06:09> Procedure: I was present and supervised entire procedure. Dr. Theodore performed skillfully and without any direct assistance from me.
[2018-02-26 03:56] LABS: Hematocrit 21.9 % (35.3-44.9); Hemoglobin 7.4 g/dL (11.5-15.4)
[2018-02-26] MEDS ORDERED: Vancomycin (wt based) 1,000 MG VIAL IVPB SCH (04:00)
[2018-02-26 04:04] LABS: INR 1.4; Prothrombin Time 15.2 Seconds (9.4-12.1)
[2018-02-26 04:06] LABS: Activated Partial Thrombo Time 33.2 Seconds (26.0-36.0)
[2018-02-26] MEDS: Pantoprazole 40 MG in 0.9 % Sodium Chloride Mini Bag 100 ML IVC SCH ×3 (04:17→14:02)
[2018-02-26] MEDS: 0.9 % Sodium Chloride w KCl 20 MEQ/1,000 ML MLS IVC SCH ×2 (04:18→14:00)
--- NOTE | 2018-02-26 04:19 | Internal Med History&Physical ---
Date of Encounter: 02/26/18 Time of Encounter: 03:58 Internal Medicine - H&P: HPI Chief complaint: vomiting; abdominal pain; weakness Admitted From: Emergency Dept Plans for Post Hospital Care: Home History of present illness: Ms. Buckley is a 62 year old female who presents to the ER tonight with complaints of abdominal pain, vomiting, and weakness. Routine workup in the ER revealed leukocytosis, anemia, and positive troponin. She also had a CT scan of the abdomen as well which was negative. Urinalysis was suggestive of UTI and she was started on antibiotics. She was then admitted to hospitalist service for suspected NSTEMI and UTI. On my assessment patient on the floor several hours later, patient was sleeping but easily arousable. She was very pale in complexion. I noticed on the monitor that her blood pressure was quite low at 88/72. I repeated her blood pressure twice more using the NIBP monitor, and it was 70s/60s both times. I then repeated it manually, and her blood pressure was 70/50. She remained tachycardic with heart rate in the low 100s. I quickly assessed her and obtained history. She denied any chest pain whatsoever. She denied any dyspnea. Her main and only complaint was that she had severe epigastric pain, protracted nausea, vomiting, and worsening weakness with lightheadedness. Symptoms started over the last 24 hours. She has had no fevers. She does admit to having some slight dysuria, but most of her pain is in the epigastrium. She had recent surgery and has been on Xarelto for DVT prophylaxis postoperatively. I reviewed her labs quickly and note that she had a significant drop in her hemoglobin since her surgery 9 days ago. Her hemoglobin then was 12.1. Upon admission today, it was 8.5. Given her GI symptoms, hypotension, and pale complexion, I was concerned about GI bleed. She had been started on a heparin drip in the ER for suspected non-STEMI. I stopped her heparin drip right away and moved her to the intensive care unit for suspected GI bleed and shock secondary to bleed and/or sepsis. Once in the ICU, I asked the resident, Dr. Theodore, to place a femoral central line emergently. Meanwhile, we started her on IV fluid bolus and order STAT labs. Repeat hemoglobin is now 7.4, and I'm concerned that she is bleeding from a GI source despite negative history of melena, hematochezia, or hematemesis. Her blood pressure did respond favorably to fluid bolus. Presently, her blood pressure is 91/65. If necessary, we will start her on pressor support with Levophed. Her last dose of his Xarelto was more than 24 hours ago. Furthermore, her heparin drip was stopped roughly an hour ago. Patient has already had her first dose of Zosyn. I'm going to add vancomycin given her recent hospitalization. Unfortunately, urine culture was not obtained prior to antibiotic administration. Blood cultures were obtained prior to antibiotics. Past Med Surg Social Fam HX - Past Medical History Attestation: Yes The following information was validated with the patient. Source: patient, obtained from family Medical history: coronary artery disease Additional medical history: esophageal cancer Psychiatric history: no psych history - Past Surgical History Surgical History: orthopedic, other Additional surgical history: esphagus - Social History Smoking Status: Never smoker Smokeless Tobacco Status: No Alcohol use: none Drug use: none Current living situation: Home Activity Level: Independent ambulation Recent Out of Country Travel Within the Last 8 Weeks: No - Family History Mother History Unknown: Yes Father History Unknown: Yes Internal Medicine - H&P: Meds Atenolol [Tenormin] 12.5 mg PO DAILY 02/14/18 [History] Atorvastatin [Lipitor] 10 mg PO HS 02/14/18 [History] Buspirone HCl [Buspar] 15 mg PO BID 02/14/18 [History] Cholecalciferol (D-3) [Vitamin D] 5,000 unit PO DAILY 02/14/18 [History] Esomeprazole Magnesium [Nexium] 40 mg PO DAILY 02/14/18 [History] Ferrous Sulfate [Iron] 325 mg PO TID 02/14/18 [History] Lisinopril [Zestril] 10 mg PO DAILY 02/14/18 [History] Magnesium Oxide [Magnesium] 400 mg PO BID 02/14/18 [History] Megestrol Acetate [Megace] 40 mg PO BID 02/14/18 [History] Sodium Chloride [Sodium Chloride Tab] 1 gm PO DAILY 02/14/18 [History] traZODone [TraZODone] 25 mg PO HS 02/14/18 [History] Docusate [Colace] 100 mg PO BID capsule 02/19/18 [Rx] OxyCODONE Immed Rel [Roxicodone 5 MG] 10 mg PO Q6HR PRN 5 Days #20 tablet 02/19/18 [Rx] Rivaroxaban [Xarelto] 10 mg PO 1700 #10 tablet 02/19/18 [Rx] Tramadol HCl [Ultram] 50 mg PO TID PRN 5 Days #15 tab 02/19/18 [Rx] Allergy/AdvReac Type Severity Reaction Status Date / Time No Known Allergies Allergy Verified 02/25/18 18:07 - Constitutional Constitutional: weakness, no chills, no fever(s), no night sweats - EENT Eyes: no blurry vision, no change in vision Ears: no ear pain, no tinnitus Nose, mouth and throat: no nasal congestion, no sinus pressure, no sore throat - Cardiovascular Cardiovascular ROS IM: lightheadedness, no chest pain, no dyspnea, no dyspnea on exertion, no orthopnea, no syncope - Respiratory Respiratory: no cough, no hemoptysis, no chest congestion, no excessive phlegm production, no change in phlegm color - Gastrointestinal Gastrointestinal: abdominal pain (epigastric), dyspepsia, heartburn, nausea, vomiting, no diarrhea, no hematemesis, no hematochezia, no melena - Genitourinary Genitourinary: dysuria, urinary urgency, no flank pain, no hematuria - Musculoskeletal Musculoskeletal ROS IM: arthralgias (right knee/leg (post-op)), no back pain - Integumentary Integumentary IM: no rash, no jaundice - Neurological Neurological ROS: no dizziness, no focal weakness, no frequent falls, no headache(s) - Psychiatric Psychiatric: no anxiety, no depression - Endocrine Endocrine IM: no polydipsia, no polyuria - Hematologic/Lymphatic Hematologic/Lymphatic: easy bruising - Allergic/Immunologic Allergic/Immunologic: GI upset with certain foods, no wheezing - Constitutional Vitals: Temp Pulse Resp BP Pulse Ox 101.4 F H 93 16 91/65 100 02/25/18 22:41 02/26/18 03:20 02/26/18 03:20 02/26/18 03:20 02/26/18 03:20 General appearance: Present: cooperative, mild distress, A&O X 3, pleasant, answers questions appropriately Exam: pale complexion - Head Head exam: Present: atraumatic, normal inspection - Eye Eye exam: Present: EOMI, PERRL. Absent: scleral icterus Pupils: Present: normal accommodation - ENT ENT exam: Present: mucous membranes dry, normal exam, normal oropharynx - Neck Neck exam general surgery: Present: full ROM, supple. Absent: tenderness, nuchal rigidity, thyromegaly - Respiratory Respiratory exam: Present: CTAB. Absent: chest wall tenderness, rales, rhonchi, wheezes - Cardiovascular Cardiovascular exam: Present: +S1, +S2, tachycardia. Absent: diastolic murmur, systolic murmur - GI/Abdominal GI/Abdominal exam: Present: tenderness (epigastrium), no peritoneal signs. Absent: guarding, hepatomegaly, mass, normal bowel sounds, rebound, splenomegaly - Extremities Exam Extremities exam: Present: warm, radial pulses palpable and symmetrical. Absent: calf tenderness, pedal edema, tenderness Additional comments: pale nailbeds; right knee in brace - Back Exam Back exam: Absent: CVA tenderness (L), CVA tenderness (R) - Neurological Exam Neurological exam: Present: alert, CN II-XII intact, oriented X3, no focal deficits - Psychiatric Psychiatric exam: Present: normal affect, normal mood - Skin Skin exam: Present: dry, intact, pallor, warm Internal Med - H&P Results - Labs CBC & Chem 7: 02/25/18 23:04 02/25/18 18:02 Labs: Short CBC 02/25/18 02/25/18 Range/Units 18:02 23:04 WBC 14.7 H 19.8 H (4.3-11.1) K/mcL Hgb 9.0 L 8.5 L (11.5-15.4) g/dL Hct 26.9 L 25.6 L (35.3-44.9) % Plt Count 553 H 513 H (140-400) K/mcL Neutrophils # 13.7 H (1.6-8.9) K/mcL BMP 02/25/18 18:02 Sodium 130 L Potassium 3.6 Chloride 93 L Carbon Dioxide 26 BUN 14 Creatinine 0.74 Glucose 187 H Calcium 9.0 Cardiac Enzymes 02/25/18 02/25/18 Range/Units 18:02 19:52 Troponin I 1.73 H* 1.60 H* (< 0.04) ng/mL Liver Function 02/25/18 Range/Units 18:02 Total Bilirubin 0.7 (0.3-1.0) mg/dL Direct Bilirubin 0.3 H (0.0-0.2) mg/dL AST 27 (13-39) Units/L ALT 13 (7-52) Units/L Alkaline Phosphatase 66 (34-104) Units/L Albumin 3.6 (3.5-5.7) g/dL Urine 02/25/18 Range/Units 21:24 Urine Color Yellow (Yellow) Urine Clarity Clear (Clear) Urine pH 6.0 (5.0-8.0) pH Units Ur Specific [place] > 1.030 H (1.010-1.025) Urine Protein 30 H (Neg-Trace) mg/dL Urine Glucose (UA) Normal (Normal) mg/dL - EKG Data -: EKG Interpreted by Myself - EKG Data Prior EKG available for review: no EKG comments: 02/26/18 04:28 sinus tachycardia w subtle ST-T depressions laterally - Impressions ITS Impressions Abdomen/Pelvis CT 02/25/18 18:04 IMPRESSION: 1. No evidence of acute pulmonary embolism, aortic aneurysm or dissection. Mild prominence of the main pulmonary artery. 2. Patulous esophagus with air-fluid level. 3. Stable right lower lobe pulmonary nodule. No evidence of acute lung parenchyma or pleural disease. 4. No acute gastrointestinal abnormality. Normal appendix. 5. Worsening of compression injury at L1. 6. Stable tiny left adrenal nodule. D/ / 02/25/2018 20:05:39 Michelle Vila MD / bcarter Interpreting Provider: Michelle Vila MD Chest CTA 02/25/18 19:24 IMPRESSION: 1. No evidence of acute pulmonary embolism, aortic aneurysm or dissection. Mild prominence of the main pulmonary artery. 2. Patulous esophagus with air-fluid level. 3. Stable right lower lobe pulmonary nodule. No evidence of acute lung parenchyma or pleural disease. 4. No acute gastrointestinal abnormality. Normal appendix. 5. Worsening of compression injury at L1. 6. Stable tiny left adrenal nodule. D/ / 02/25/2018 20:05:39 Michelle Vila MD / [email or web address] Interpreting Provider: Michelle Vila MD - Assessment and plan (1) Shock Current Visit: Yes Status: Acute Assessment and plan: 1. Fluid resuscitation followed by PRBC transfusion. 2. Suspect UGI bleed vs sepsis vs both (latter two less likely). 3. Heparin stopped due to suspicion of GI bleed. 4. Will trend serial H/H. 5. Will start Levophed drip if necessary to maintain hemodynamic stability. 65 minutes critical care time with patient thus far assessing, stabilizing, transferring patient, and placing CVC. (2) UTI (urinary tract infection) Current Visit: Yes Status: Acute Assessment and plan: 1. Urine culture ordered. 2. Continue IV antibiotics and follow cultures. 3. Doubt patient is septic and in shock form UTI. 4. Will trend lactate levels. 5. Shock most likely due to blood loss. Qualifiers: Urinary tract infection type: acute cystitis Hematuria presence: without hematuria Qualified Code(s): N30.00 - Acute cystitis without hematuria (3) GI bleed Current Visit: Yes Status: Suspected Assessment and plan: 1. Patient with acute anemia and epigastric pain with protracted nausea. 2. Strongly suspect UGHI blood loss. 3. Will keep npo, start Protonix drip, and transfuse PRBC's. 4. She will need endoscopy once stabilized. 5. Will order stool hemoccult. Qualifiers: GI bleed type/associated pathology: unspecified gastrointestinal hemorrhage type Qualified Code(s): K92.2 - Gastrointestinal hemorrhage, unspecified (4) Non-STEMI (non-ST elevated myocardial infarction) Current Visit: Yes Status: Acute Assessment and plan: 1. Will trend troponins, EKG's, and order ECHO. 2. Heparin stopped due to suspected GI bleed. 3. Transfuse PRBC's and provide supportive measures. Once shock resolved and suspected GI bleeding stopped, consider further cardiac intervention. 4. Consult Cardiology. (5) DVT prophylaxis Current Visit: Yes Status: Acute Assessment and plan: 1. Unable to provide anticoagulation in the setting of GI bleed and shock. 2. Will provide EPCD on left leg. Right leg is post-op 9 days ago. - VTE Reasons for not Prescribing Prophylaxis: Medical contraindication
[2018-02-26 04:41] LABS: Bilirubin,Urine Negative (Negative); Blood,Urine Trace (Negative); Clarity,Urine Clear (Clear); Color,Urine Yellow (Yellow); Glucose,Urine (UA) Normal (Normal); Ketones,Urine 15 mg/dL (Negative); Leukocyte Esterase,Urine Small (Negative); Nitrite,Urine Negative (Negative); Protein,Urine Negative (Neg-Trace); Specific Gravity,Urine > 1.030 (1.010-1.025); Urobilinogen,Urine Normal (Normal)
[2018-02-26] MEDS ORDERED: Vancomycin 750 MG VIAL IVPB ONE (05:36)
[2018-02-26] MEDS ORDERED: Aminoglycoside Consult 1 EACH MC ONE (07:39)
--- NOTE | 2018-02-26 08:33 | Internal Med Progress Note ---
Addendum entered and electronically signed by Amy Gupta 02/26/18 15:37: Patient positive for C. Diff and Campylobacter. Started on oral vancomycin 125mg QID. Negative stool hemoccult, heparin restarted after talking with cardiology for n-stemi Original Note: <Amy Gupta - Last Filed: 02/26/18 13:19> Hospitalist Progress Note - Encounter Date of Encounter: 02/26/18 Time of Encounter: 08:00 - Subjective Interval History: Ms. Buckley is a 62 year old female who presented to the ED on 02/25/18 for abdominal pain, N/V and weakness. She states that she is still nauseous and has dry heaves but has not vomited. She states her abdominal pain has subsided a bit but even states that placing the stethoscope on her stomach hurts her. Anticoagulation was held due to possible GI bleed. Currently on Vancomycin and Zosyn, Has received 2 units PRBC which brought her Hgb from 7.4 to 11.3 WBC count has increased to 29.8 today - Exam Vitals: Temp Pulse Resp BP Pulse Ox 97.7 F 80 16 111/83 100 02/26/18 06:03 02/26/18 06:03 02/26/18 06:03 02/26/18 06:03 02/26/18 06:03 Exam: General: alert, cooperative, some distress Head: atraumatic, normocephalic Heart: RRR, no murmurs, rubs, or gallops Lungs: CTAB, no wheezing, no rales Abdomen: normal bowel sounds, guarding and rigidity noted throughout abdomen but most tenderness illicited in mid-epigastric region Skin: warm, dry, intact, patient appears pale Extremities: no pedal edema, no cyanosis - Assessment and Plan (1) Shock Current Visit: Yes Status: Resolved Assessment and Plan: Most likely due to UTI with gram negative rods Shock resolved Discontinue Vancomycin Continue Zosyn (2) UTI (urinary tract infection) Current Visit: Yes Status: Acute Assessment and Plan: Blood cultures showed gram negative rods and urine sample showed nitrates Continue Zosyn, discontinue vancomycin (3) Acute blood loss anemia Current Visit: Yes Status: Acute Assessment and Plan: Trend H&&H Q8 Continue PRBC as needed based on H&H stool occult blood ordered Consult GI Awaiting GI panel results (4) Non-STEMI (non-ST elevated myocardial infarction) Current Visit: Yes Status: Acute Assessment and Plan: Will continue to trend one more troponin on next H&H draw believe this to be demand ischemia DVT Prophylaxis: ECPD to left leg, light leg is post-op day 10 - Time Spent with Patient Total time spent is greater than 50% in coordination of care (as documented) at patient's floor/unit and/or counseling patient: Plan of Care Discussed with: patient Internal Medicine: Result - Labs CBC & Chem 7: 02/26/18 11:00 02/26/18 08:41 Labs: Short CBC 02/25/18 02/25/18 02/26/18 Range/Units 18:02 23:04 03:40 WBC 14.7 H 19.8 H (4.3-11.1) K/mcL Hgb 9.0 L 8.5 L 7.4 L (11.5-15.4) g/dL Hct 26.9 L 25.6 L 21.9 L (35.3-44.9) % Plt Count 553 H 513 H (140-400) K/mcL Neutrophils # 13.7 H (1.6-8.9) K/mcL BMP 02/25/18 18:02 Sodium 130 L Potassium 3.6 Chloride 93 L Carbon Dioxide 26 BUN 14 Creatinine 0.74 Glucose 187 H Calcium 9.0 Cardiac Enzymes 02/25/18 02/25/18 02/26/18 Range/Units 18:02 19:52 04:00 Troponin I 1.73 H* 1.60 H* 1.85 H* (< 0.04) ng/mL Liver Function 02/25/18 Range/Units 18:02 Total Bilirubin 0.7 (0.3-1.0) mg/dL Direct Bilirubin 0.3 H (0.0-0.2) mg/dL AST 27 (13-39) Units/L ALT 13 (7-52) Units/L Alkaline Phosphatase 66 (34-104) Units/L Albumin 3.6 (3.5-5.7) g/dL Urine 02/25/18 02/26/18 Range/Units 21:24 04:13 Urine Color Yellow Yellow (Yellow) Urine Clarity Clear Clear (Clear) Urine pH 6.0 5.0 (5.0-8.0) pH Units Ur Specific [place] > 1.030 H > 1.030 H (1.010-1.025) Urine Protein 30 H Negative (Neg-Trace) mg/dL Urine Glucose (UA) Normal Normal (Normal) mg/dL - ABG Interpretation ABG results: PT/INR, D-dimer PT 15.2 Seconds (9.4-12.1) H 02/26/18 03:40 - Impressions Impressions Abdomen/Pelvis CT 02/25/18 18:04 IMPRESSION: 1. No evidence of acute pulmonary embolism, aortic aneurysm or dissection. Mild prominence of the main pulmonary artery. 2. Patulous esophagus with air-fluid level. 3. Stable right lower lobe pulmonary nodule. No evidence of acute lung parenchyma or pleural disease. 4. No acute gastrointestinal abnormality. Normal appendix. 5. Worsening of compression injury at L1. 6. Stable tiny left adrenal nodule. D/ / 02/25/2018 20:05:39 Michelle Vila MD / delores Interpreting Provider: Michelle Vila MD Chest CTA 02/25/18 19:24 IMPRESSION: 1. No evidence of acute pulmonary embolism, aortic aneurysm or dissection. Mild prominence of the main pulmonary artery. 2. Patulous esophagus with air-fluid level. 3. Stable right lower lobe pulmonary nodule. No evidence of acute lung parenchyma or pleural disease. 4. No acute gastrointestinal abnormality. Normal appendix. 5. Worsening of compression injury at L1. 6. Stable tiny left adrenal nodule. D/ / 02/25/2018 20:05:39 Michelle Vila MD / delores Interpreting Provider: Michelle Vila MD - VTE Reasons for not Prescribing Prophylaxis: Medical contraindication Consult Discharge Plan - Plan Referrals: Paras Horvath MD [Primary Care Provider] - <Nicole Orozco - Last Filed: 02/26/18 17:05> Hospitalist Progress Note - Exam Vitals: Temp Pulse Resp BP Pulse Ox 97.3 F L 106 16 142/95 97 02/26/18 16:00 02/26/18 16:00 02/26/18 16:00 02/26/18 16:00 02/26/18 16:00 - Assessment and Plan (1) Non-STEMI (non-ST elevated myocardial infarction) Current Visit: Yes Status: Acute (2) Shock Current Visit: Yes Status: Resolved (3) UTI (urinary tract infection) Current Visit: Yes Status: Acute (4) GI bleed Current Visit: Yes Status: Suspected (5) DVT prophylaxis Current Visit: Yes Status: Acute - Time Spent with Patient Total time spent is greater than 50% in coordination of care (as documented) at patient's floor/unit and/or counseling patient: Internal Medicine: Result - Labs CBC & Chem 7: 02/26/18 15:35 02/26/18 08:41 Labs: Short CBC 02/25/18 02/25/18 02/26/18 Range/Units 18:02 23:04 03:40 WBC 14.7 H 19.8 H (4.3-11.1) K/mcL Hgb 9.0 L 8.5 L 7.4 L (11.5-15.4) g/dL Hct 26.9 L 25.6 L 21.9 L (35.3-44.9) % Plt Count 553 H 513 H (140-400) K/mcL Neutrophils # 13.7 H (1.6-8.9) K/mcL 02/26/18 02/26/18 02/26/18 Range/Units 08:41 11:00 15:35 WBC 29.8 H D 31.4 H* (4.3-11.1) K/mcL Hgb 11.3 L D 11.6 11.6 (11.5-15.4) g/dL Hct 32.5 L 33.8 L 33.3 L (35.3-44.9) % Plt Count 382 426 H (140-400) K/mcL Neutrophils # 28.1 H 29.5 H (1.6-8.9) K/mcL BMP 02/25/18 02/26/18 18:02 08:41 Sodium 130 L 136 Potassium 3.6 3.4 L Chloride 93 L 104 Carbon Dioxide 26 22 L BUN 14 13 Creatinine 0.74 0.65 Glucose 187 H 149 H Calcium 9.0 7.6 L Cardiac Enzymes 02/25/18 02/25/18 02/26/18 Range/Units 18:02 19:52 04:00 Troponin I 1.73 H* 1.60 H* 1.85 H* (< 0.04) ng/mL 02/26/18 02/26/18 Range/Units 08:41 15:35 Troponin I 1.43 H* 1.90 H* (< 0.04) ng/mL Liver Function 02/25/18 02/26/18 Range/Units 18:02 08:41 Total Bilirubin 0.7 0.9 (0.3-1.0) mg/dL Direct Bilirubin 0.3 H (0.0-0.2) mg/dL AST 27 157 H (13-39) Units/L ALT 13 76 H (7-52) Units/L Alkaline Phosphatase 66 90 (34-104) Units/L Albumin 3.6 2.9 L (3.5-5.7) g/dL Urine 02/25/18 02/26/18 Range/Units 21:24 04:13 Urine Color Yellow Yellow (Yellow) Urine Clarity Clear Clear (Clear) Urine pH 6.0 5.0 (5.0-8.0) pH Units Ur Specific [place] > 1.030 H > 1.030 H (1.010-1.025) Urine Protein 30 H Negative (Neg-Trace) mg/dL Urine Glucose (UA) Normal Normal (Normal) mg/dL - ABG Interpretation ABG results: PT/INR, D-dimer PT 15.2 Seconds (9.4-12.1) H 02/26/18 03:40 - Impressions Impressions Abdomen/Pelvis CT 02/25/18 18:04 IMPRESSION: 1. No evidence of acute pulmonary embolism, aortic aneurysm or dissection. Mild prominence of the main pulmonary artery. 2. Patulous esophagus with air-fluid level. 3. Stable right lower lobe pulmonary nodule. No evidence of acute lung parenchyma or pleural disease. 4. No acute gastrointestinal abnormality. Normal appendix. 5. Worsening of compression injury at L1. 6. Stable tiny left adrenal nodule. D/ / 02/25/2018 20:05:39 Michelle Vila MD / bcarter Interpreting Provider: Michelle Vila MD Chest CTA 02/25/18 19:24 IMPRESSION: 1. No evidence of acute pulmonary embolism, aortic aneurysm or dissection. Mild prominence of the main pulmonary artery. 2. Patulous esophagus with air-fluid level. 3. Stable right lower lobe pulmonary nodule. No evidence of acute lung parenchyma or pleural disease. 4. No acute gastrointestinal abnormality. Normal appendix. 5. Worsening of compression injury at L1. 6. Stable tiny left adrenal nodule. D/ / 02/25/2018 20:05:39 Michelle Vila MD / bcarter Interpreting Provider: Michelle Vila MD - Attending Attestation I examined this patient and my medical decision-making was reviewed with the Resident Physician Dr. Gupta. I agree with the documented findings, disposition and treatment plan as described except to the extent set forth ness garrido. Ms. Buckley is a 62 year old female who presents to the ER tonight with complaints of abdominal pain, vomiting, and weakness. Routine workup in the ER revealed leukocytosis, anemia, and positive troponin. She also had a CT scan of the abdomen as well which was negative. Urinalysis was suggestive of UTI and she was started on antibiotics. She was then admitted to hospitalist service for suspected NSTEMI and UTI. Pt was started on broad spec abx Zosyn and Vancomyin. Later her trop started trending high, so pt was started on Heparin gtt. Apparently her Hb dropped down to 7.4 from 9.0 So heparin gtt d/c. Pt was transferred to ICU for further higher level of care. Her stool hemoccult came back as negative. He still has nausea. Denied any CP. No SOB. Denied any melena. She does have diarrhea. Gen: A, A, O x 3 Chest: Diminished BS b/l, no crackles, nor ales Heart: S1S2+ RRR No murmrus Abd: Soft, mild epigastric discomfort. no guarding a/p 1. Septic shock - improved 2. Sepsis with UTI 3. Bactremiea - G-ve rods - mostly due to UTI cont abx Zosyn d.c Vancomcyin IV hydration 4. Acute C. Diff colitis C. Diff + Campylobacter positive started on PO Vancomycin 5. Acute initial NSTEMI Trop trending high .. Peak @ 1.9 Talked to cardiology.. resumed Heparin gtt cont trend on trop 2 D Echo - P 6. Acute anemia - could be due to sepsis s/p 2 U PRBC - Hb improved 11.6 cont close monitoring Ok to resume Heparin gtt due to her NSTEMI Spent 50 minutes critical care time on this pt. <Amy Gupta - Last Filed: 02/26/18 13:19> (2) UTI (urinary tract infection) Qualifiers: Urinary tract infection type: acute cystitis Hematuria presence: without hematuria Qualified Code(s): N30.00 - Acute cystitis without hematuria <Nicole Orozco - Last Filed: 02/26/18 17:05> (3) UTI (urinary tract infection) Qualifiers: Urinary tract infection type: acute cystitis Hematuria presence: without hematuria Qualified Code(s): N30.00 - Acute cystitis without hematuria (4) GI bleed Qualifiers: GI bleed type/associated pathology: unspecified gastrointestinal hemorrhage type Qualified Code(s): K92.2 - Gastrointestinal hemorrhage, unspecified
[2018-02-26] MEDS: Norepinephrine 4 MG in D5% in Water 250 ML IVC SCH (08:48)
[2018-02-26] MEDS: Piperacillin/Tazobactam 3.375 GM in 0.9 % Sodium Chloride Mini Bag 100 ML IVPB SCH ×2 (08:50→16:23)
[2018-02-26 09:08] LABS: Basophils # 0.1 K/mcL (0.0-0.2); Basophils % 0.2 %; Hematocrit 32.5 % (35.3-44.9); Hemoglobin 11.3 g/dL (11.5-15.4); Lymphocytes # 0.6 K/mcL (0.6-4.6); Mean Corpuscular HGB Conc 34.8 g/dL (31.6-35.5); Mean Platelet Volume 8.9 fL (9.4-12.4); Monocytes # 0.8 K/mcL (0.0-1.3); Monocytes % 2.6 %; Neutrophils # 28.1 K/mcL (1.6-8.9); Platelet Count 382 K/mcL (140-400); Red Blood Count 3.65 M/mcL (3.82-4.97); Segmented Neutrophils % 94.2 %
[2018-02-26 09:25] LABS: Alanine Aminotransferase 76 Units/L (7-52); Albumin 2.9 g/dL (3.5-5.7); Albumin/Globulin Ratio 1.2 (1.1-2.2); Alkaline Phosphatase 90 Units/L (34-104); Aspartate Amino Transferase 157 Units/L (13-39); BUN/Creatinine Ratio 20 (6-26); Bilirubin,Total 0.9 mg/dL (0.3-1.0); Blood Urea Nitrogen 13 mg/dL (8-23); Calcium 7.6 mg/dL (8.6-10.3); Carbon Dioxide 22 mEq/L (23-29); Chloride 104 mEq/L (98-107); Globulin 2.5 g/dL (2.4-3.5); Glucose 149 mg/dL (70-105); Osmolality,Calculated 285 (280-300); Potassium 3.4 mEq/L (3.5-5.1); Sodium 136 mEq/L (136-145); Total Protein 5.4 g/dL (6.4-8.9); eGFR For Non-African Americans > 60 (> 60)
[2018-02-26 09:28] LABS: Platelet Estimate Normal (Normal)
[2018-02-26] MEDS ORDERED: *HR* Promethazine 25 MG/ML VIAL IVP PRN (10:20)
--- NOTE | 2018-02-26 10:20 | Cardiology Consult Note ---
<Brandee Patel - Last Filed: 02/26/18 10:16> Date of Encounter: 02/26/18 Time of Encounter: 09:45 Assessment and Plan (1) GI bleed Current Visit: Yes Status: Suspected Per cardiology: -Suspected GI bleed, hemoglobin baseline 12-13. -Hemoglobin 7.4. -Management per primary service. Qualifiers: GI bleed type/associated pathology: unspecified gastrointestinal hemorrhage type Qualified Code(s): K92.2 - Gastrointestinal hemorrhage, unspecified (2) Shock Current Visit: Yes Status: Acute Per cardiology: -Hypotensive, required fluid boluses. -?sepsis. -Management per primary service. (3) Elevated troponin Current Visit: Yes Status: Acute Per cardiology: -Troponins 1.73, 1.6, 1.85 in the setting of GI bleed, shock, ?sepsis. -Patient denies chest pain -NO acute ischemic ECG changes noted. -No previous cardiac testing to review. -Of note, now with acute GI bleeding. -Patient is currently NPO. -Not a candidate for ASA and heparin due to acute GI bleed. -Will check echo. -Continue to trend troponins. -Suspect demand ischemia in the setting of above. No cardiac rehab consult warranted. -Patient is not a candidate for invasive cardiac work up due to acute GI bleed. Discussion w patient/family: The assessment and plan as outlined above was discussed with the patient who expressed understanding and agreement. All questions were answered. Thank you for involving us in the care of your patient. Please call with any questions. Discussed and reviewed with . History of Present Illness Consult date: 02/26/18 Requesting physician: Juan C Casey Consult reason: elevated troponin Chief complaint: nausea, vomiting, diarrhea History of present illness: Ms. Buckley is a 62 year old female with a relevant past medical history of HTN, HLD, GERD, recent orthopedic surgery, esophageal cancer who presented to [facility] with complaints of nause, vomiting. Also reported fever and chills. States after arrival she started having diarrhea. Patient denies chest pain. Reports shortness of breath. Reports fatigue. Patient denies previous cardiac testing. Past Med Surg Social Fam HX - Past Medical History Attestation: Yes The following information was validated with the patient. Source: patient, old records reviewed Medical history: GERD, hyperlipidemia, hypertension Additional medical history: esophageal cancer Psychiatric history: no psych history - Past Surgical History Surgical History: orthopedic, other Additional surgical history: esphagus - Social History Smoking Status: Never smoker Smokeless Tobacco Status: No Alcohol use: none Drug use: none - Family History Father History Unknown: Yes Mother History Unknown: Yes Medications and Allergies RX: Atorvastatin [Lipitor] 10 mg PO HS 02/14/18 [History] RX: Buspirone HCl [Buspar] 15 mg PO BID 02/14/18 [History] RX: Magnesium Oxide [Magnesium] 400 mg PO BID 02/14/18 [History] RX: Megestrol Acetate [Megace] 40 mg PO BID 02/14/18 [History] RX: Sodium Chloride [Sodium Chloride Tab] 1 gm PO DAILY 02/14/18 [History] RX: traZODone [TraZODone] 25 mg PO HS 02/14/18 [History] Azelastine 0.1% Nasal [place] [Astelin] 2 spr NS BID 02/26/18 [History] Cyanocobalamin (Vitamin B-12) [Vitamin B-12] 100 mcg PO DAILY 02/26/18 [History] Escitalopram [Lexapro] 10 mg PO DAILY 02/26/18 [History] HYDROcodone/Acet 7.5/325 mg [[place] 7.5-325 mg] 1 tab PO Q6H PRN 02/26/18 [History] Naproxen [Naprosyn] 500 mg PO BID 02/26/18 [History] Omeprazole [PriLOSEC] 40 mg PO DAILY 02/26/18 [History] Ondansetron HCl [Zofran] 4 mg PO Q6H PRN 02/26/18 [History] RX: Ipratropium [place] 2 spr NS BID 02/26/18 [History] RX: Metoprolol [Lopressor] 12.5 mg PO BID 02/26/18 [History] Allergy/AdvReac Type Severity Reaction Status Date / Time No Known Allergies Allergy Verified 02/26/18 11:19 All Systems Review: The remainder of the systems were reviewed and are negative - Constitutional Constitutional: chills, fatigue, fever(s) - Cardiovascular Cardiovascular: as per HPI - Gastrointestinal Gastrointestinal: diarrhea, nausea Physical Examination Vital Signs, Last 4 Hours Temp Pulse Resp BP Pulse Ox 02/26/18 09:30 97.5 F L 95 16 120/83 100 02/26/18 08:00 97.5 F L General: Conversant, No Apparent Distress HEENT: Atraumatic, Normocephaly, Mucus Membranes Moist Neck: No JVD, Normal carotid pulses Cardiac: Reg Rate and Rhythm, Normal S1 and S2, No Murmur Lungs: Normal Breath Sounds, No Wheeze, Rales, Rhonchi Neuro: Alert and responsive, No focal deficits noted Abdomen: Soft, Non-Tender, Other (Nauseated. Dry heaving in room. ) Skin: No rashes noted on visualized skin Musculoskeletal: No Chest Wall Tenderness Extremities: No Clubbing, No Cyanosis, No Edema, Normal Pulses Results 02/26/18 08:41 02/26/18 08:41 Lab Results 02/25/18 02/25/18 02/25/18 18:02 18:02 19:52 WBC 14.7 H Hgb 9.0 L Hct 26.9 L Plt Count 553 H INR APTT Sodium 130 L Potassium 3.6 Chloride 93 L Carbon Dioxide 26 BUN 14 Creatinine 0.74 Glucose 187 H Calcium 9.0 Total Bilirubin 0.7 AST 27 ALT 13 Alkaline Phosphatase 66 Troponin I 1.73 H* 1.60 H* B-Natriuretic Peptide Impressions Abdomen/Pelvis CT 02/25/18 18:04 IMPRESSION: 1. No evidence of acute pulmonary embolism, aortic aneurysm or dissection. Mild prominence of the main pulmonary artery. 2. Patulous esophagus with air-fluid level. 3. Stable right lower lobe pulmonary nodule. No evidence of acute lung parenchyma or pleural disease. 4. No acute gastrointestinal abnormality. Normal appendix. 5. Worsening of compression injury at L1. 6. Stable tiny left adrenal nodule. D/ / 02/25/2018 20:05:39 Michelle Vila MD / bcarter Interpreting Provider: Michelle Vila MD Chest CTA 02/25/18 19:24 IMPRESSION: 1. No evidence of acute pulmonary embolism, aortic aneurysm or dissection. Mild prominence of the main pulmonary artery. 2. Patulous esophagus with air-fluid level. 3. Stable right lower lobe pulmonary nodule. No evidence of acute lung parenchyma or pleural disease. 4. No acute gastrointestinal abnormality. Normal appendix. 5. Worsening of compression injury at L1. 6. Stable tiny left adrenal nodule. D/ / 02/25/2018 20:05:39 Michelle Vila MD / bcarter Interpreting Provider: Michelle Vila MD Active Medications Potassium Chloride/Sodium Chloride (Kcl 20 Meq In 0.9% Sodium Chloride) 20 meq in 1,000 mls @ 100 mls/hr IVC .Q10H BRYAN Stop: 02/26/18 23:59 Last Admin: 02/26/18 04:18 Dose: 100 mls/hr Norepinephrine Bitartrate 4 mg (/ Dextrose) 254 mls @ 19.05 mls/hr IVC CONT BRYAN; Protocol Stop: 08/28/18 04:01 Last Admin: 02/26/18 08:48 Dose: Not Given Pantoprazole Sodium 40 mg/ (Sodium Chloride) 100 mls @ 20 mls/hr IVC .Q5H BRYAN Stop: 08/28/18 04:01 Last Admin: 02/26/18 08:49 Dose: 20 mls/hr Piperacillin Sod/Tazobactam (Sod 3.375 gm/ Sodium Chloride) 100 mls @ 25 mls/hr IVPB Q8HR BRYAN Stop: 08/28/18 08:01 Last Admin: 02/26/18 08:50 Dose: 25 mls/hr Vancomycin HCl 750 mg/ Sodium (Chloride) 250 mls @ 250 mls/hr IVPB Q24H [facility] Stop: 08/28/18 05:01 Last Admin: 02/26/18 08:49 Dose: Not Given Naloxone HCl (Narcan) 0.4 mg IVP Q2MIN PRN PRN Reason: SEE COMMENTS Stop: 08/28/18 03:47 Promethazine HCl (Phenergan) 12.5 mg IVP Q6HR PRN PRN Reason: Nausea And Vomiting Stop: 08/28/18 10:21 Laboratory Tests 10/05/16 06/28/17 02/25/18 10:01 12:04 18:02 WBC Hgb 12.5 13.0 9.0 L Creatinine Troponin I 02/25/18 02/25/18 02/25/18 18:02 19:52 23:04 WBC Hgb 8.5 L Creatinine Troponin I 1.73 H* 1.60 H* 02/26/18 02/26/18 02/26/18 03:40 04:00 08:41 WBC 29.8 H D Hgb 7.4 L 11.3 L D Creatinine Troponin I 1.85 H* 02/26/18 08:41 WBC Hgb Creatinine 0.65 Troponin I - Imaging and Cardiology Chest Xray: report reviewed Echo: pending - EKG Interpretation EKG results cardiology: personally reviewed (ECG with ST, HR 111. Non-specific T wave abnormality noted, similar to baseline.), other (Telemetry reviewed with average HR previous 12 hours noted to be 89, SR. PVCs and PACs noted.) Consult Discharge Plan - Plan Referrals: Paras Horvath MD [Primary Care Provider] - <Abiola Banegas - Last Filed: 02/26/18 14:39> - Attending Attestation I have personally performed a face to face evaluation on this patient. I have reviewed and agree with the care plan. History and Exam by me shows: 70-year-old female with elevated troponins currently downtrending from a peak of 1.6-1.43 and elevated white blood count of 20,000 likely underlying sepsis secondary to UTI with recent knee surgery presents due to nausea vomiting fevers and chills. Echo currently pending however likely demand ischemia from underlying sepsis. We will review echocardiogram once available if normal without structural heart abnormalities patient may benefit from noninvasive ischemic workup. If regional wall motion analysis are noted on echo consider an LHC. Assessment and Plan Discussion w patient/family: The assessment and plan as outlined above was discussed with the patient and/or family members who expressed understanding and agreement. All questions were answered. Thank you for involving us in the care of your patient. Please call with any questions. History of Present Illness History of present illness: Ms. Buckley is a 62 year old female All Systems Review: The remainder of the systems were reviewed and are negative Physical Examination Vital Signs, Last 4 Hours Temp Pulse Resp BP Pulse Ox 02/26/18 14:00 105 16 131/95 99 02/26/18 12:00 97.2 F L 107 16 132/95 99 Results 02/26/18 11:00 02/26/18 08:41 Lab Results 02/25/18 02/25/18 02/25/18 18:02 18:02 19:52 WBC 14.7 H Hgb 9.0 L Hct 26.9 L Plt Count 553 H INR APTT Sodium 130 L Potassium 3.6 Chloride 93 L Carbon Dioxide 26 BUN 14 Creatinine 0.74 Glucose 187 H Calcium 9.0 Total Bilirubin 0.7 AST 27 ALT 13 Alkaline Phosphatase 66 Troponin I 1.73 H* 1.60 H* B-Natriuretic Peptide Lipase 02/25/18 02/25/18 02/25/18 19:52 23:04 23:04 WBC 19.8 H Hgb 8.5 L Hct 25.6 L Plt Count 513 H INR 1.4 APTT Sodium Potassium Chloride Carbon Dioxide BUN Creatinine Glucose Calcium Total Bilirubin AST ALT Alkaline Phosphatase Troponin I B-Natriuretic Peptide 989 H Lipase 02/26/18 02/26/18 02/26/18 03:40 03:40 04:00 WBC Hgb 7.4 L Hct 21.9 L Plt Count INR 1.4 APTT 33.2 Sodium Potassium Chloride Carbon Dioxide BUN Creatinine Glucose Calcium Total Bilirubin AST ALT Alkaline Phosphatase Troponin I 1.85 H* B-Natriuretic Peptide Lipase 02/26/18 02/26/18 02/26/18 08:41 08:41 11:00 WBC 29.8 H D 31.4 H* Hgb 11.3 L D 11.6 Hct 32.5 L 33.8 L Plt Count 382 426 H INR APTT Sodium 136 Potassium 3.4 L Chloride 104 Carbon Dioxide 22 L BUN 13 Creatinine 0.65 Glucose 149 H Calcium 7.6 L Total Bilirubin 0.9 AST 157 H ALT 76 H Alkaline Phosphatase 90 Troponin I 1.43 H* B-Natriuretic Peptide Lipase 8 L
[2018-02-26 10:25] LABS: Troponin I 1.43 ng/mL (< 0.04)
[2018-02-26 11:05] LABS: Acinetobacter baumannii by PCR Not Detected (Not Detect); Enterobacter cloacae Cmplx PCR Not Detected (Not Detect); Enterobacteriaceae by PCR DETECTED (Not Detect); Enterococcus by PCR Not Detected (Not Detect); Escherichia coli by PCR DETECTED (Not Detect); Staphylococcus aureus by PCR Not Detected (Not Detect); Staphylococcus by PCR Not Detected (Not Detect); Streptococcus agalactiae(B)PCR Not Detected (Not Detect); Streptococcus by PCR Not Detected (Not Detect); Streptococcus pneumoniae PCR Not Detected (Not Detect); Streptococcus pyogenes (A) PCR Not Detected (Not Detect); blaKPC Carbapenem-Resist Gene Not Detected (Not Detect)
[2018-02-26 11:06] LABS: Candida albicans by PCR Not Detected (Not Detect); Candida glabrata by PCR Not Detected (Not Detect); Candida krusei by PCR Not Detected (Not Detect); Candida parapsilosis by PCR Not Detected (Not Detect); Candida tropicalis by PCR Not Detected (Not Detect); Klebsiella oxytoca by PCR Not Detected (Not Detect); Klebsiella pneumoniae by PCR Not Detected (Not Detect); Proteus by PCR Not Detected (Not Detect); Pseudomonas aeruginosa by PCR Not Detected (Not Detect); Serratia marcescens by PCR Not Detected (Not Detect)
[2018-02-26 11:12] LABS: Lipase 8 Units/L (11-82)
[2018-02-26 11:27] LABS: Hematocrit 33.8 % (35.3-44.9); Hemoglobin 11.6 g/dL (11.5-15.4)
[2018-02-26 13:19] LABS: Adenovirus F 40/41 PCR Not detected (Not detect); Astrovirus PCR Not detected (Not detect); C.difficile Toxin A/B by PCR DETECTED (Not detect); Campylobacter by PCR DETECTED (Not detect); Cryptosporidium by PCR Not detected (Not detect); Cyclospora cayetanensis PCR Not detected (Not detect); E. coli O157 by PCR Not detected (Not detect); Entamoeba histolytica PCR Not detected (Not detect); Enteroaggregative E.coli(EAEC) Not detected (Not detect); Enteropathogenic E.coli(EPEC) Not detected (Not detect); Enterotoxigenic E.coli (ETEC) Not detected (Not detect); Giardia lamblia PCR Not detected (Not detect); Norovirus GI/GII PCR Not detected (Not detect); Plesiomonas shigelloides PCR Not detected (Not detect); Rotavirus A PCR Not detected (Not detect); Salmonella PCR Not detected (Not detect); Sapovirus PCR Not detected (Not detect); Shig/EnteroinvasiveE coli EIEC Not detected (Not detect); Shigalike tox-prod E coli STEC Not detected (Not detect); Vibrio PCR Not detected (Not detect); Vibrio cholerae PCR Not detected (Not detect); Yersinia enterocolitica PCR Not detected (Not detect)
[2018-02-26 14:03] LABS: Lymphocytes % 1.8 %; Mean Corpuscular HGB Conc 33.9 g/dL (31.6-35.5); Red Cell Distribution Width 13.2 % (11.5-14.5)
[2018-02-26 14:05] LABS: Basophils # 0.1 K/mcL (0.0-0.2); Basophils % 0.3 %; Immature Granulocytes % 0.9 % (0-4); Lymphocytes # 0.6 K/mcL (0.6-4.6); Mean Corpuscular Hemoglobin 30.3 pg (28.0-33.3); Mean Corpuscular Volume 89.3 fL (83.0-100.0); Mean Platelet Volume 9.2 fL (9.4-12.4); Monocytes # 0.9 K/mcL (0.0-1.3); Platelet Count 426 K/mcL (140-400); Red Blood Count 3.73 M/mcL (3.82-4.97)
[2018-02-26 14:11] LABS: Neutrophils # 29.5 K/mcL (1.6-8.9)
[2018-02-26 14:46] LABS: Platelet Estimate Normal (Normal)
[2018-02-26] MEDS ORDERED: *HR* Heparin 5,000 UNIT/ML VIAL IVP PRN ×2 (15:08)
[2018-02-26] MEDS ORDERED: *HR* Heparin 5,000 UNIT/ML VIAL IVP ONE (15:08)
[2018-02-26] MEDS ORDERED: Heparin 25,000 UNIT/500 ML D5W 25,000 UNIT/500 ML BAG IVC SCH (15:15)
[2018-02-26 15:55] LABS: Hematocrit 33.3 % (35.3-44.9); Hemoglobin 11.6 g/dL (11.5-15.4)
[2018-02-26] MEDS ORDERED: MetroNIDAZOLE 500 MG/100 ML 500 MG/100 ML BAG IVPB SCH (16:00)
[2018-02-26 16:03] LABS: Heparin anti-factor XA UFH 0.08 IU/mL (0.30-0.70)
[2018-02-26] MEDS: Vancomycin Oral Soln 125 MG/2.5 ML UDC PO SCH ×2 (16:19→20:35)
[2018-02-26] MEDS: *HR* Promethazine 25 MG/ML VIAL IVP SCH ×2 (16:19→20:30)
[2018-02-26] MEDS ORDERED: *HR* HYDROcodone/Acet 7.5/325 mg TABLET PO PRN (17:07)
[2018-02-26] MEDS: Aspirin 81 MG TAB.CHEW PO SCH (18:30)
[2018-02-26 18:38] LABS: INR 1.3; Prothrombin Time 14.4 Seconds (9.4-12.1)
[2018-02-26] MEDS ORDERED: Perflutren Lipid Microsphere 1.3 ML in 0.9 % Sodium Chloride 8.7 ML IVP ONE (18:39)
[2018-02-26 18:41] LABS: Activated Partial Thrombo Time 29.8 Seconds (26.0-36.0)
[2018-02-26 18:43] LABS: Mean Corpuscular HGB Conc 33.7 g/dL (31.6-35.5); Mean Corpuscular Hemoglobin 30.2 pg (28.0-33.3); Mean Corpuscular Volume 89.5 fL (83.0-100.0); Platelet Count 416 K/mcL (140-400); Red Blood Count 3.81 M/mcL (3.82-4.97); Red Cell Distribution Width 13.8 % (11.5-14.5)
[2018-02-26 20:13] LABS: Large Platelets Present (Not Present); Lymphocytes # 0.7 K/mcL (0.6-4.6); Monocytes # 0.7 K/mcL (0.0-1.3); Neutrophils # 30.5 K/mcL (1.6-8.9)
[2018-02-26 20:14] LABS: Platelet Estimate Normal (Normal)
[2018-02-26] MEDS: Magnesium Oxide 400 MG TABLET PO SCH (20:34)
[2018-02-26] MEDS: traZODone 50 MG TABLET PO SCH ×2 (20:35→22:03)
[2018-02-26 22:04] LABS: Hematocrit 33.8 % (35.3-44.9); Hemoglobin 11.6 g/dL (11.5-15.4)
[2018-02-26] MEDS: Ondansetron 4 MG/2 ML VIAL IVP PRN (23:18)
[2018-02-27] MEDS: *HR* Promethazine 25 MG/ML VIAL IVP SCH ×3 (00:11→08:45)
[2018-02-27] MEDS: OXYCODONE Oral CONC 10 MG/0.5 ML ORAL.SYG SL PRN ×2 (00:11→08:47)
[2018-02-27] MEDS: Piperacillin/Tazobactam 3.375 GM in 0.9 % Sodium Chloride Mini Bag 100 ML IVPB SCH ×3 (00:12→17:08)
[2018-02-27] MEDS: Norepinephrine 4 MG in D5% in Water 250 ML IVC SCH (02:00)
[2018-02-27 04:42] LABS: Hematocrit 31.8 % (35.3-44.9); Mean Corpuscular HGB Conc 34.6 g/dL (31.6-35.5); Mean Corpuscular Hemoglobin 30.8 pg (28.0-33.3); Mean Corpuscular Volume 89.1 fL (83.0-100.0); Platelet Count 410 K/mcL (140-400); Red Blood Count 3.57 M/mcL (3.82-4.97); Red Cell Distribution Width 13.8 % (11.5-14.5)
[2018-02-27 04:58] LABS: Alanine Aminotransferase 39 Units/L (7-52); Albumin 2.6 g/dL (3.5-5.7); Albumin/Globulin Ratio 1.1 (1.1-2.2); Alkaline Phosphatase 78 Units/L (34-104); Aspartate Amino Transferase 40 Units/L (13-39); BUN/Creatinine Ratio 32 (6-26); Bilirubin,Total 0.7 mg/dL (0.3-1.0); Blood Urea Nitrogen 16 mg/dL (8-23); Calcium 7.6 mg/dL (8.6-10.3); Carbon Dioxide 22 mEq/L (23-29); Chloride 106 mEq/L (98-107); Globulin 2.4 g/dL (2.4-3.5); Glucose 148 mg/dL (70-105); Magnesium 1.8 mg/dL (1.6-2.6); Osmolality,Calculated 286 (280-300); Potassium 3.5 mEq/L (3.5-5.1); Sodium 136 mEq/L (136-145); eGFR For Non-African Americans > 60 (> 60)
[2018-02-27 05:04] LABS: Lymphocytes # 1.2 K/mcL (0.6-4.6)
[2018-02-27] MEDS: Ondansetron 4 MG/2 ML VIAL IVP PRN (05:21)
[2018-02-27] MEDS: Magnesium Oxide 400 MG TABLET PO SCH ×2 (08:45→21:32)
[2018-02-27] MEDS: Aspirin 81 MG TAB.CHEW PO SCH (08:45)
[2018-02-27] MEDS: Vancomycin Oral Soln 125 MG/2.5 ML UDC PO SCH ×4 (08:48→21:31)
[2018-02-27] MEDS ORDERED: Cyanocobalamin (B-12) 1,000 MCG TABLET PO SCH (09:00)
[2018-02-27] MEDS ORDERED: Pantoprazole 40 MG VIAL IVP SCH (09:00)
--- NOTE | 2018-02-27 09:41 | Internal Med Progress Note ---
<AurelianoredSingh dineroie E - Last Filed: 02/27/18 15:51> Hospitalist Progress Note - Encounter Date of Encounter: 02/27/18 Time of Encounter: 08:00 - Subjective Interval History: Ms. Buckley is a 62 year old female who presented to the ED on 02/25/18 for abdominal pain, N/V and weakness. She states that her nausea has subsided adn that her abdominal pain is much better. She states she still is a bit achey from coughing adn dry heaving yesterday btu is feeling much better Heparin was restarted yesterday as hemoccult was negative. Currently on Vancomycin oral and Zosyn, Hgb stable today at 11.0 WBC count slightly decreased from 29.8 to 29.2 - Exam Vitals: Temp Pulse Resp BP Pulse Ox 98.2 F 105 15 93/70 97 02/27/18 08:00 02/27/18 06:00 02/27/18 06:00 02/27/18 06:00 02/27/18 06:00 Exam: General: alert, cooperative, no distress Head: atraumatic, normocephalic Heart: RRR, no murmurs, rubs, or gallops Lungs: CTAB, no wheezing, no rales Abdomen: normal bowel sounds, no gaurding or rigidity Skin: warm, dry, intact Extremities: no pedal edema, no cyanosis - Assessment and Plan (1) Shock Current Visit: Yes Status: Resolved Assessment and Plan: Most likely due to UTI with gram negative rods Shock resolved Continue Zosyn (2) UTI (urinary tract infection) Current Visit: Yes Status: Acute Assessment and Plan: Blood cultures showed gram negative rods and urine sample showed nitrates Continue Zosyn (3) Acute blood loss anemia Current Visit: Yes Status: Acute Assessment and Plan: Received two units PRBC early yesterday morning. Hgb has increased to 11.6, dropped slightly to 11.0 today but could be due to 2L IV fluids yesterday. Continue to monitor with daily labs Stool hemoccult negative (4) Non-STEMI (non-ST elevated myocardial infarction) Current Visit: Yes Status: Acute Assessment and Plan: Troponin decreased from 1.98 to 1.25 Believe elevation was from demand ischemia Anticoagulation restarted yesterday after speakign with cardio and stool hemoccult negative. No signs of active bleeding believed to be demand ischemia (5) Clostridium difficile colitis Current Visit: Yes Status: Acute Assessment and Plan: GI panel positive from C. Diff and Campylobacter Started oral vancomycin 125mg QID Continue to monitor (6) Campylobacter gastroenteritis Current Visit: Yes Status: Acute Assessment and Plan: Patients GI panel positive for C. Diff and campylobacter Continue Zosyn DVT Prophylaxis: ECPD to left leg, light leg is post-op day 10 On Heparin subQ 5000u Q8 - Time Spent with Patient Total time spent is greater than 50% in coordination of care (as documented) at patient's floor/unit and/or counseling patient: Plan of Care Discussed with: patient Internal Medicine: Result - Labs CBC & Chem 7: 02/27/18 04:26 02/27/18 04:26 Labs: Short CBC 02/26/18 02/26/18 02/26/18 Range/Units 11:00 15:35 21:53 WBC 31.4 H* 33.1 H* (4.3-11.1) K/mcL Hgb 11.6 11.6 11.6 (11.5-15.4) g/dL Hct 33.8 L 33.3 L 33.8 L (35.3-44.9) % Plt Count 426 H 416 H (140-400) K/mcL Neutrophils # 29.5 H 30.5 H (1.6-8.9) K/mcL 02/27/18 Range/Units 04:26 WBC 29.2 H (4.3-11.1) K/mcL Hgb 11.0 L (11.5-15.4) g/dL Hct 31.8 L (35.3-44.9) % Plt Count 410 H (140-400) K/mcL Neutrophils # 28.0 H (1.6-8.9) K/mcL BMP 02/26/18 02/27/18 08:41 04:26 Sodium 136 136 Potassium 3.4 L 3.5 Chloride 104 106 Carbon Dioxide 22 L 22 L BUN 13 16 Creatinine 0.65 0.50 L Glucose 149 H 148 H Calcium 7.6 L 7.6 L Cardiac Enzymes 02/26/18 02/26/18 02/26/18 Range/Units 08:41 15:35 21:53 Troponin I 1.43 H* 1.90 H* 1.98 H* (< 0.04) ng/mL 02/27/18 Range/Units 04:26 Troponin I 1.25 H* (< 0.04) ng/mL Liver Function 02/26/18 02/27/18 Range/Units 08:41 04:26 Total Bilirubin 0.9 0.7 (0.3-1.0) mg/dL AST 157 H 40 H (13-39) Units/L ALT 76 H 39 (7-52) Units/L Alkaline Phosphatase 90 78 (34-104) Units/L Albumin 2.9 L 2.6 L (3.5-5.7) g/dL - ABG Interpretation ABG results: PT/INR, D-dimer PT 14.4 Seconds (9.4-12.1) H 02/26/18 15:35 - Impressions Impressions Echocardiogram 02/26/18 08:45 Impressions: LVEF 30-35%. Normal LV chamber size and wall thickness. Severe global left ventricular systolic dysfunction with regional variations. Indeterminate diastolic function. Normal right ventricular structure and function. Mild tricuspid regurgitation. Estimated RVSP is 45 mmHg. Mild-moderate pulmonary hypertension. - VTE Reasons for not Prescribing Prophylaxis: Medical contraindication Consult Discharge Plan - Plan Referrals: Paras Horvath MD [Primary Care Provider] - <Russ Varela - Last Filed: 02/27/18 17:48> Hospitalist Progress Note - Exam Vitals: Temp Pulse Resp BP Pulse Ox 97.4 F L 84 18 129/87 90 02/27/18 17:02 02/27/18 17:02 02/27/18 17:02 02/27/18 17:02 02/27/18 17:02 - Assessment and Plan (1) Non-STEMI (non-ST elevated myocardial infarction) Current Visit: Yes Status: Acute (2) Shock Current Visit: Yes Status: Resolved (3) UTI (urinary tract infection) Current Visit: Yes Status: Acute (4) GI bleed Current Visit: Yes Status: Suspected (5) DVT prophylaxis Current Visit: Yes Status: Acute - Time Spent with Patient Total time spent is greater than 50% in coordination of care (as documented) at patient's floor/unit and/or counseling patient: Internal Medicine: Result - Labs CBC & Chem 7: 02/27/18 04:26 02/27/18 04:26 Labs: Short CBC 02/26/18 02/26/18 02/27/18 Range/Units 15:35 21:53 04:26 WBC 33.1 H* 29.2 H (4.3-11.1) K/mcL Hgb 11.6 11.0 L (11.5-15.4) g/dL Hct 33.8 L 31.8 L (35.3-44.9) % Plt Count 416 H 410 H (140-400) K/mcL Neutrophils # 30.5 H 28.0 H (1.6-8.9) K/mcL BMP 02/27/18 04:26 Sodium 136 Potassium 3.5 Chloride 106 Carbon Dioxide 22 L BUN 16 Creatinine 0.50 L Glucose 148 H Calcium 7.6 L Cardiac Enzymes 02/26/18 02/27/18 Range/Units 21:53 04:26 Troponin I 1.98 H* 1.25 H* (< 0.04) ng/mL Liver Function 02/27/18 Range/Units 04:26 Total Bilirubin 0.7 (0.3-1.0) mg/dL AST 40 H (13-39) Units/L ALT 39 (7-52) Units/L Alkaline Phosphatase 78 (34-104) Units/L Albumin 2.6 L (3.5-5.7) g/dL - ABG Interpretation ABG results: PT/INR, D-dimer PT 14.4 Seconds (9.4-12.1) H 02/26/18 15:35 - Impressions Impressions Echocardiogram 02/26/18 08:45 Impressions: LVEF 30-35%. Normal LV chamber size and wall thickness. Severe global left ventricular systolic dysfunction with regional variations. Indeterminate diastolic function. Normal right ventricular structure and function. Mild tricuspid regurgitation. Estimated RVSP is 45 mmHg. Mild-moderate pulmonary hypertension. - Attending Attestation I examined this patient and my medical decision-making was reviewed with the Resident Physician. I agree with the documented findings, disposition and treatment plan as described except to the extent set forth below. <Amy Gupta Dick - Last Filed: 02/27/18 15:51> (2) UTI (urinary tract infection) Qualifiers: Urinary tract infection type: acute cystitis Hematuria presence: without hematuria Qualified Code(s): N30.00 - Acute cystitis without hematuria <Russ Varela - Last Filed: 02/27/18 17:48> (3) UTI (urinary tract infection) Qualifiers: Urinary tract infection type: acute cystitis Hematuria presence: without hematuria Qualified Code(s): N30.00 - Acute cystitis without hematuria (4) GI bleed Qualifiers: GI bleed type/associated pathology: unspecified gastrointestinal hemorrhage type Qualified Code(s): K92.2 - Gastrointestinal hemorrhage, unspecified
[2018-02-27] MEDS ORDERED: *HR* Promethazine 25 MG/ML VIAL IVP PRN (10:19)
--- NOTE | 2018-02-27 11:26 | Cardiology Progress Note ---
Date of Encounter: 02/27/18 Time of Encounter: 09:00 Assessment and Plan (1) GI bleed Current Visit: Yes Status: Suspected Per cardiology: -Suspected GI bleed, hemoglobin baseline 12-13. -Hemoglobin 7.4, improved. -? related to c.diff -Management per primary service. Qualifiers: GI bleed type/associated pathology: unspecified gastrointestinal hemorrhage type Qualified Code(s): K92.2 - Gastrointestinal hemorrhage, unspecified (2) Shock Current Visit: Yes Status: Resolved Per cardiology: -Hypotensive, required fluid boluses. -sepsis. -Management per primary service. (3) Elevated troponin Current Visit: Yes Status: Acute Per cardiology: -Troponins 1.73, 1.6, 1.85, 1.9, 1.98, 1.25 in the setting of GI bleed, shock, sepsis. -Patient denies chest pain -NO acute ischemic ECG changes noted. -No previous cardiac testing to review. -Currently on asa, statin, heparin drip. Not on BB due to hypotension. -TTE with LVEF 30-35%, global hypokinesis, mild TR, mild-moderate PH. -With new cardiomyopathy, recommend LHC when able. Please re-consult when patient is stable from sepsis, ?Gi bleed standpoint. Would recommend LHC prior to discharge, if able. -Consider addition of BB (toprol or coreg) when BP will tolerate. -Consider addition of rayna/arb if able prior to discharge. Discussion w patient/family: The assessment and plan as outlined above was discussed with the patient who expressed understanding and agreement. All questions were answered. Thank you for involving us in the care of your patient. Please call with any questions. Discussed and reviewed with . Subjective Principal diagnosis: sepsis, c.diff Interval history: Patient laying in bed. Denies complaints. Objective Vital Signs, Last 4 Hours Temp Pulse Resp BP Pulse Ox 02/27/18 10:00 82 16 94/69 97 02/27/18 08:00 98.2 F 83 16 96/71 98 General: Conversant, No Apparent Distress HEENT: Atraumatic, Normocephaly, Mucus Membranes Moist Neck: No JVD, Normal carotid pulses Cardiac: Reg Rate and Rhythm, Normal S1 and S2, No Murmur Lungs: Normal Breath Sounds, No Wheeze, Rales, Rhonchi Neuro: Alert and responsive, No focal deficits noted Abdomen: Soft, Non-Tender Skin: No rashes noted on visualized skin Musculoskeletal: No Chest Wall Tenderness Extremities: No Clubbing, No Cyanosis, No Edema, Normal Pulses Results 02/27/18 04:26 02/27/18 04:26 Lab Results 02/26/18 02/26/18 02/26/18 08:41 11:00 15:35 WBC 31.4 H* Hgb 11.6 Hct 33.8 L Plt Count 426 H INR APTT Sodium 136 Potassium 3.4 L Chloride 104 Carbon Dioxide 22 L BUN 13 Creatinine 0.65 Glucose 149 H Calcium 7.6 L Magnesium Total Bilirubin 0.9 AST 157 H ALT 76 H Alkaline Phosphatase 90 Troponin I 1.43 H* 1.90 H* Lipase 8 L Impressions Echocardiogram 02/26/18 08:45 Impressions: LVEF 30-35%. Normal LV chamber size and wall thickness. Severe global left ventricular systolic dysfunction with regional variations. Indeterminate diastolic function. Normal right ventricular structure and function. Mild tricuspid regurgitation. Estimated RVSP is 45 mmHg. Mild-moderate pulmonary hypertension. Active Medications Hydrocodone Bitart/Acetaminophen ([place] 7.5-325 Mg) 1 tab PO Q6H PRN PRN Reason: mild to moderate pain Stop: 08/28/18 17:08 Aspirin (Aspirin) 81 mg PO DAILY [facility] Stop: 08/28/18 17:16 Last Admin: 02/27/18 08:45 Dose: 81 mg Atorvastatin Calcium (Lipitor) 10 mg PO HS [facility] Stop: 08/28/18 21:01 Last Admin: 02/26/18 20:34 Dose: Not Given Buspirone HCl (Buspar) 15 mg PO BID [facility] Stop: 08/28/18 21:01 Last Admin: 02/27/18 08:45 Dose: 15 mg Cyanocobalamin (Vitamin B12) 250 mcg PO DAILY [facility] Stop: 08/29/18 09:01 Escitalopram Oxalate (Lexapro) 10 mg PO DAILY [facility] Stop: 08/29/18 09:01 Last Admin: 02/27/18 08:45 Dose: 10 mg Heparin Sodium (Porcine) (Heparin) 2,700 unit 60 unit/kg (2700 unit) IVP Q6HR PRN PRN Reason: SEE COMMENTS Stop: 08/28/18 15:09 Heparin Sodium (Porcine) (Heparin) 1,300 unit 30 unit/kg (1300 unit) IVP Q6H PRN PRN Reason: SEE COMMENTS Stop: 08/28/18 15:09 Last Admin: 02/27/18 05:21 Dose: 1,300 unit Norepinephrine Bitartrate 4 mg (/ Dextrose) 254 mls @ 19.05 mls/hr IVC CONT [facility]; Protocol Stop: 08/28/18 04:01 Last Admin: 02/27/18 02:00 Dose: Not Given Piperacillin Sod/Tazobactam (Sod 3.375 gm/ Sodium Chloride) 100 mls @ 25 mls/hr IVPB Q8HR [facility] Stop: 08/28/18 08:01 Last Admin: 02/27/18 08:46 Dose: 25 mls/hr Heparin Sodium/Dextrose (Heparin 25,000 Unit/500 Ml D5w) 25,000 unit in 500 mls @ 10.752 mls/hr IVC .Q24H [facility]; Protocol Stop: 08/28/18 15:16 Last Titration: 02/27/18 05:18 Dose: 16.46 unit/kg/hr, 14.75 mls/hr Magnesium Oxide (Mag-Ox) 400 mg PO BID [facility]; Protocol Stop: 08/28/18 21:01 Last Admin: 02/27/18 08:45 Dose: 400 mg Naloxone HCl (Narcan) 0.4 mg IVP Q2MIN PRN PRN Reason: SEE COMMENTS Stop: 08/28/18 03:47 Ondansetron HCl (Zofran) 4 mg IVP Q6HR [facility]; Protocol Stop: 08/29/18 12:01 Oxycodone HCl (Oxycodone Oral Conc) 5 mg SL Q6HR PRN; Protocol PRN Reason: moderate pain Stop: 08/28/18 23:52 Last Admin: 02/27/18 08:47 Dose: 5 mg Pantoprazole Sodium (Protonix) 40 mg IVP DAILY [facility] Stop: 08/29/18 09:01 Last Admin: 02/27/18 08:46 Dose: 40 mg Promethazine HCl (Phenergan) 12.5 mg IVP Q4HR PRN PRN Reason: nausea Stop: 08/28/18 16:01 Trazodone HCl (Trazodone) 25 mg PO HS [facility] Stop: 08/28/18 21:01 Last Admin: 02/26/18 22:03 Dose: 25 mg Vancomycin HCl (Firvanq) 125 mg PO QID [facility] Stop: 08/28/18 17:01 Last Admin: 02/27/18 08:48 Dose: 125 mg Laboratory Tests 02/25/18 02/25/18 02/26/18 18:02 19:52 04:00 WBC Hgb Creatinine Troponin I 1.73 H* 1.60 H* 1.85 H* 02/26/18 02/26/18 02/26/18 08:41 15:35 21:53 WBC Hgb Creatinine Troponin I 1.43 H* 1.90 H* 1.98 H* 02/27/18 02/27/18 02/27/18 04:26 04:26 04:26 WBC 29.2 H Hgb 11.0 L Creatinine 0.50 L Troponin I 1.25 H* - Imaging and Cardiology Chest Xray: report reviewed Echo: report reviewed - EKG Interpretation EKG results cardiology: other (Telemetry reviewed with average HR previous 12 hours noted to be 103, ST. PVCs noted.) - VTE Reasons for not Prescribing Prophylaxis: Medical contraindication Consult Discharge Plan - Plan Referrals: Paras Horvath MD [Primary Care Provider] -
[2018-02-27] MEDS ORDERED: Ondansetron 4 MG/2 ML VIAL IVP SCH (12:00)
[2018-02-27] MEDS ORDERED: *HR* Heparin 5,000 UNIT/ML VIAL SQ SCH (14:00)
[2018-02-27] MEDS ORDERED: Perflutren Lipid Microsphere 1.3 ML in 0.9 % Sodium Chloride 8.7 ML IVP ONE (15:41)
[2018-02-27] MEDS ORDERED: OXYCODONE Oral CONC 10 MG/0.5 ML ORAL.SYG SL PRN (15:41)
[2018-02-27] MEDS ORDERED: Naloxone 0.4 MG/ML INJ IVP PRN (15:41)
[2018-02-27] MEDS ORDERED: *HR* HYDROcodone/Acet 7.5/325 mg TABLET PO PRN (15:41)
[2018-02-27] MEDS: Ondansetron 4 MG/2 ML VIAL IVP SCH (17:08)
[2018-02-27] MEDS: *HR* Promethazine 25 MG/ML VIAL IVP PRN (19:53)
[2018-02-27] MEDS: traZODone 50 MG TABLET PO SCH (21:31)
[2018-02-27] MEDS: *HR* Heparin 5,000 UNIT/ML VIAL SQ SCH (21:32)
[2018-02-28] MEDS: Ondansetron 4 MG/2 ML VIAL IVP SCH ×4 (01:21→17:17)
[2018-02-28] MEDS: Piperacillin/Tazobactam 3.375 GM in 0.9 % Sodium Chloride Mini Bag 100 ML IVPB SCH ×2 (01:21→08:14)
[2018-02-28 05:06] LABS: Basophils % 0.2 %; Eosinophils % 0.2 %; Hematocrit 31.8 % (35.3-44.9); Hemoglobin 10.8 g/dL (11.5-15.4); Immature Granulocytes % 0.7 % (0-4); Lymphocytes # 0.8 K/mcL (0.6-4.6); Lymphocytes % 4.5 %; Mean Corpuscular Hemoglobin 30.7 pg (28.0-33.3); Mean Corpuscular Volume 90.3 fL (83.0-100.0); Monocytes # 0.7 K/mcL (0.0-1.3); Monocytes % 3.8 %; Neutrophils # 16.7 K/mcL (1.6-8.9); Platelet Count 407 K/mcL (140-400); Red Blood Count 3.52 M/mcL (3.82-4.97); Red Cell Distribution Width 13.7 % (11.5-14.5); Segmented Neutrophils % 90.6 %
[2018-02-28] MEDS: *HR* Heparin 5,000 UNIT/ML VIAL SQ SCH ×3 (05:22→20:27)
[2018-02-28 05:26] LABS: Alanine Aminotransferase 27 Units/L (7-52); Albumin 2.6 g/dL (3.5-5.7); Albumin/Globulin Ratio 1.1 (1.1-2.2); Alkaline Phosphatase 70 Units/L (34-104); Aspartate Amino Transferase 17 Units/L (13-39); BUN/Creatinine Ratio 25 (6-26); Bilirubin,Total 0.6 mg/dL (0.3-1.0); Blood Urea Nitrogen 16 mg/dL (8-23); Calcium 8.1 mg/dL (8.6-10.3); Carbon Dioxide 25 mEq/L (23-29); Chloride 105 mEq/L (98-107); Globulin 2.3 g/dL (2.4-3.5); Glucose 137 mg/dL (70-105); Osmolality,Calculated 283 (280-300); Potassium 3.7 mEq/L (3.5-5.1); Sodium 135 mEq/L (136-145); Total Protein 4.9 g/dL (6.4-8.9); eGFR For Non-African Americans > 60 (> 60)
[2018-02-28] MEDS: Aspirin 81 MG TAB.CHEW PO SCH (08:13)
[2018-02-28] MEDS: Magnesium Oxide 400 MG TABLET PO SCH ×2 (08:13→20:27)
[2018-02-28] MEDS: Vancomycin Oral Soln 125 MG/2.5 ML UDC PO SCH ×4 (08:14→23:58)
[2018-02-28] MEDS: Pantoprazole 40 MG VIAL IVP SCH (08:14)
[2018-02-28] MEDS: Cyanocobalamin (B-12) 1,000 MCG TABLET PO SCH (08:14)
--- NOTE | 2018-02-28 10:06 | Internal Med Progress Note ---
Addendum entered and electronically signed by Tesha Leung 02/28/18 14:51: Original Note: <Tesha Leung - Last Filed: 02/28/18 14:16> Hospitalist Progress Note - Encounter Time of Encounter: 10:03 - Subjective Interval History: Ms. Aminata Buckley is a 62 year old female hospital day 3 who presented to the ED on 02/25/18 for abdominal pain, N/V and weakness. Pt had watery vomit yesterday x1 after drinking coffee. Pt able to tolerate other liquids today. She states she still has abdominal pain in RUQ and RLQ and is still nauseous. She vomiting x1 yesterday that looked like water after drinking coffee. Pt denies chest pain or SOB Pt states she had multiple bowel movements yesterday. Denies lightheadness or dizziness. - Exam Vitals: Temp Pulse Resp BP Pulse Ox 98.3 F 80 14 142/90 94 02/28/18 07:16 02/28/18 07:16 02/28/18 07:16 02/28/18 07:16 02/28/18 07:16 Exam: General: alert, cooperative, no distress Head: atraumatic, normocephalic Heart: RRR, no murmurs, rubs, or gallops Lungs: CTAB, no wheezing, no rales Abdomen: normal bowel sounds, normoactive bowel sounds in all 4 quadrants, TTP in RUQ, no masses Skin: warm, dry, intact Extremities: no pedal edema, no cyanosis. right lower extremity in boot with some slight swelling around lateral malleolus - Assessment and Plan (1) Shock Current Visit: Yes Status: Resolved Assessment and Plan: On admission, pt developed hypotension and had a hemoglobin of 8.5. Pt was then transferred to the ICU where a femoral central line was placed and IV fluid bolus was started. Pt's blood pressure was responsive to IV fluids. 2 units of PRBC's was given which increased her hemoglobin to 11.6. Pt was then transferred out of the ICU and to the general medical floor. -Most likely due to UTI with E. Coli bacteremia Doesn't meet sepsis criteria - -only meets 1 of 4 criteria for SIRS criteria -WBC 18.4 -shock resolved Plan: -discontinue Zosyn tooday -initiate 2 grams Ceftriaxone q 24 hours (2) UTI (urinary tract infection) Current Visit: Yes Status: Acute Assessment and Plan: Blood cultures showed E. coli on 02/25 and and urine sample showed nitrates. Urine cx 02/25 showed no growth UA showed 30 mg/dL protein, 15 mg/dL ketones, moderate blook, 3-5 RBC, TNTC WBC, many bacteria, moderate leukocyte esterase Plan: -Blood cultures x2 on 02/27 pending. -discontinue Zosyn -start Ceftriaxone 2 grams q 24 hours (3) GI bleed Current Visit: Yes Status: Suspected Assessment and Plan: Upon admission, hemoglobin was found to be 8.5. - Pt's blood pressure was responsive to fluids, - hemoglobin increased after 2 units of PRBCs to 11.6 -Hgb has dropped slightly today to 10.8 from 11.0 yesterday -FOBT negative Plan: - Continue to monitor with daily hemoglobin -Continue Protonix IVP or PO? -transfuse if hemoglobin less than 8 with symptoms or <7 without s/s (4) Elevated troponin Current Visit: Yes Status: Acute Assessment and Plan: -Most likely from demand ischemia type 2 SC On admission troponin was 1.73. Troponin trended up to 1.85 then trended down to 1.25 ECHO on 02/26/18 -TTE with LVEF 30-35%, global hypokinesis, mild TR, mild-moderate PH. Plan: -Cardiology recommends LHC when stable. - Add LAURA/ARB prior to discharge - Currently on ASA, statin, heparin, lipitor -Consider starting Lopressor 12.5 mg PO bid (5) Clostridium difficile colitis Current Visit: Yes Status: Acute Assessment and Plan: -GI panel positive from C. Diff and Campylobacter on 02/26. -Currently on oral Vanco day number 2 (6) Campylobacter gastroenteritis Current Visit: Yes Status: Acute Assessment and Plan: Patients GI panel positive for C. Diff and campylobacter Plan: -discontinue Zosyn -start Azithromycin 500 mg PO q24hrs (7) DVT prophylaxis Current Visit: Yes Status: Acute Assessment and Plan: SQ heparin and SCD on left leg. Right leg post-op day 11 after tibial plateau fx (8) Nausea Current Visit: Yes Status: Acute Assessment and Plan: Acute -Vomited x1 yesterday that was "like water" Plan: -Continue Ondesetron and Promethazine prn (9) Hyperlipemia Current Visit: Yes Status: Acute Assessment and Plan: Chronic -On Atorvastatin -Continue home dose (10) Anxiety Current Visit: Yes Status: Acute Assessment and Plan: Chronic -on Busprirone -Continue home dose (11) Insomnia Current Visit: Yes Status: Acute Assessment and Plan: Chronic -on Trazodone -Contine home dose (12) Depression Current Visit: Yes Status: Acute Assessment and Plan: Chronic -on Escitalopram -Continue home dose (13) Coronary artery disease Current Visit: Yes Status: Acute Assessment and Plan: Chronic -on ASA, lipitor -start Lopressor 12.5 mg PO bid DVT Prophylaxis: ECPD to left leg, right leg is post-op day 10 On Heparin subQ 5000u Q8 - Time Spent with Patient Total time spent is greater than 50% in coordination of care (as documented) at patient's floor/unit and/or counseling patient: less than 15 minutes Plan of Care Discussed with: patient Internal Medicine: Result - Labs CBC & Chem 7: 02/28/18 04:00 02/28/18 04:00 Labs: Short CBC 02/28/18 Range/Units 04:00 WBC 18.4 H (4.3-11.1) K/mcL Hgb 10.8 L (11.5-15.4) g/dL Hct 31.8 L (35.3-44.9) % Plt Count 407 H (140-400) K/mcL Neutrophils # 16.7 H (1.6-8.9) K/mcL BMP 02/28/18 04:00 Sodium 135 L Potassium 3.7 Chloride 105 Carbon Dioxide 25 BUN 16 Creatinine 0.65 Glucose 137 H Calcium 8.1 L Liver Function 02/28/18 Range/Units 04:00 Total Bilirubin 0.6 (0.3-1.0) mg/dL AST 17 (13-39) Units/L ALT 27 (7-52) Units/L Alkaline Phosphatase 70 (34-104) Units/L Albumin 2.6 L (3.5-5.7) g/dL - ABG Interpretation ABG results: PT/INR, D-dimer PT 14.4 Seconds (9.4-12.1) H 02/26/18 15:35 - VTE Reasons for not Prescribing Prophylaxis: Medical contraindication Consult Discharge Plan - Plan Referrals: Paras Horvath MD [Primary Care Provider] - <Russ Varela - Last Filed: 02/28/18 14:38> Hospitalist Progress Note - Encounter Date of Encounter: 02/28/18 - Exam Vitals: Temp Pulse Resp BP Pulse Ox 97.3 F L 90 16 137/88 92 02/28/18 10:44 02/28/18 10:44 02/28/18 10:44 02/28/18 10:44 02/28/18 10:44 - Assessment and Plan (1) Non-STEMI (non-ST elevated myocardial infarction) Current Visit: Yes Status: Acute (2) Shock Current Visit: Yes Status: Resolved (3) UTI (urinary tract infection) Current Visit: Yes Status: Acute (4) GI bleed Current Visit: Yes Status: Suspected (5) DVT prophylaxis Current Visit: Yes Status: Acute - Time Spent with Patient Total time spent is greater than 50% in coordination of care (as documented) at patient's floor/unit and/or counseling patient: Internal Medicine: Result - Labs CBC & Chem 7: 02/28/18 04:00 02/28/18 04:00 Labs: Short CBC 02/28/18 Range/Units 04:00 WBC 18.4 H (4.3-11.1) K/mcL Hgb 10.8 L (11.5-15.4) g/dL Hct 31.8 L (35.3-44.9) % Plt Count 407 H (140-400) K/mcL Neutrophils # 16.7 H (1.6-8.9) K/mcL BMP 02/28/18 04:00 Sodium 135 L Potassium 3.7 Chloride 105 Carbon Dioxide 25 BUN 16 Creatinine 0.65 Glucose 137 H Calcium 8.1 L Liver Function 02/28/18 Range/Units 04:00 Total Bilirubin 0.6 (0.3-1.0) mg/dL AST 17 (13-39) Units/L ALT 27 (7-52) Units/L Alkaline Phosphatase 70 (34-104) Units/L Albumin 2.6 L (3.5-5.7) g/dL - ABG Interpretation ABG results: PT/INR, D-dimer PT 14.4 Seconds (9.4-12.1) H 02/26/18 15:35 - Attending Attestation I examined this patient and my medical decision-making was reviewed with the Medical Student. I agree with the documented findings, disposition and treatment plan as described except to the extent set forth below. Patient continues to improve. Denies fevers/chills, dysuria, dizziness, CP/SOB, n/v. VS: reviewed Physical exam: Gen: NAD, CVS: RRR, Lungs: CTAB, and: soft, nt/nd, Ext: no edema. 1. Septic Shock secondary to E coli UTI - Resolved, hemodynamically stable 2. NSTEMI type II - demand ischemia from septic shock. Troponins trended down. 3. Acute anemia - does not appear to be acute blood loss. 4. C diff colitis 5. Campylonacter gastroenteritis - Rocephin/Azithromycin to cover E coli (riojas-sensitive), Campylobacter. DC Zosyn. - Oral Vancomycin - Plan for LHC prior to discharge. Was held due to instability on admission. She is now hemodynamically stable and transferred out of ICU yesterday. Today doing well. Will contact Cardiology tomorrow AM if continues to improve in regards to LHC. - Start low dose metoprolol for HFrEF, will add LAURA inhibitor tomorrow if BP tolerates. - Heparin SQ Q8H for DVT prophylaxis. <Tesha Leung - Last Filed: 02/28/18 14:16> (2) UTI (urinary tract infection) Qualifiers: Urinary tract infection type: acute cystitis Hematuria presence: without hematuria Qualified Code(s): N30.00 - Acute cystitis without hematuria (3) GI bleed Qualifiers: GI bleed type/associated pathology: unspecified gastrointestinal hemorrhage type Qualified Code(s): K92.2 - Gastrointestinal hemorrhage, unspecified (11) Insomnia Qualifiers: Insomnia type: unspecified Qualified Code(s): G47.00 - Insomnia, unspecified (12) Depression Qualifiers: Depression Type: unspecified Qualified Code(s): F32.9 - Major depressive disorder, single episode, unspecified (13) Coronary artery disease Qualifiers: Coronary Disease-Associated Artery/Lesion type: [place] artery [place] vs. transplanted heart: [place] heart Associated angina: angina presence unspecified Qualified Code(s): I25.10 - Atherosclerotic heart disease of [place] coronary artery without angina pectoris <Russ Varela - Last Filed: 02/28/18 14:38> (3) UTI (urinary tract infection) Qualifiers: Urinary tract infection type: acute cystitis Hematuria presence: without hematuria Qualified Code(s): N30.00 - Acute cystitis without hematuria (4) GI bleed Qualifiers: GI bleed type/associated pathology: unspecified gastrointestinal hemorrhage type Qualified Code(s): K92.2 - Gastrointestinal hemorrhage, unspecified
[2018-02-28] MEDS ORDERED: OXYCODONE Oral CONC 10 MG/0.5 ML ORAL.SYG SL PRN (12:22)
[2018-02-28] MEDS: Azithromycin 250 MG TABLET PO SCH (14:39)
[2018-02-28] MEDS: cefTRIAXone 2,000 MG in Water for inj. (sterile) 20 ML 20 ML IVP SCH (14:39)
[2018-02-28] MEDS: *HR* Promethazine 25 MG/ML VIAL IVP PRN (14:45)
[2018-02-28] MEDS: traZODone 50 MG TABLET PO SCH (20:27)
[2018-03-01] MEDS: Ondansetron 4 MG/2 ML VIAL IVP SCH ×4 (01:14→17:52)
[2018-03-01] MEDS: *HR* Heparin 5,000 UNIT/ML VIAL SQ SCH ×3 (05:42→21:22)
[2018-03-01 06:04] LABS: Basophils % 0.2 %; Eosinophils % 0.4 %; Hematocrit 34.3 % (35.3-44.9); Hemoglobin 11.3 g/dL (11.5-15.4); Lymphocytes % 9.8 %; Mean Corpuscular HGB Conc 32.9 g/dL (31.6-35.5); Mean Corpuscular Hemoglobin 30.1 pg (28.0-33.3); Mean Corpuscular Volume 91.5 fL (83.0-100.0); Monocytes # 0.6 K/mcL (0.0-1.3); Monocytes % 6.4 %; Neutrophils # 8.3 K/mcL (1.6-8.9); Platelet Count 466 K/mcL (140-400); Red Blood Count 3.75 M/mcL (3.82-4.97); Red Cell Distribution Width 13.2 % (11.5-14.5); Segmented Neutrophils % 82.2 %
[2018-03-01 06:25] LABS: BUN/Creatinine Ratio 20 (6-26); Blood Urea Nitrogen 12 mg/dL (8-23); Calcium 8.1 mg/dL (8.6-10.3); Carbon Dioxide 27 mEq/L (23-29); Chloride 103 mEq/L (98-107); Glucose 122 mg/dL (70-105); Osmolality,Calculated 283 (280-300); Potassium 3.5 mEq/L (3.5-5.1); Sodium 136 mEq/L (136-145); eGFR For Non-African Americans > 60 (> 60)
[2018-03-01] MEDS: Azithromycin 250 MG TABLET PO SCH (10:46)
[2018-03-01] MEDS: Cyanocobalamin (B-12) 1,000 MCG TABLET PO SCH (10:47)
[2018-03-01] MEDS: Aspirin 81 MG TAB.CHEW PO SCH (10:48)
[2018-03-01] MEDS: Magnesium Oxide 400 MG TABLET PO SCH ×2 (10:48→21:22)
[2018-03-01] MEDS: cefTRIAXone 2,000 MG in Water for inj. (sterile) 20 ML 20 ML IVP SCH (10:49)
--- NOTE | 2018-03-01 10:50 | Internal Med Progress Note ---
Addendum entered and electronically signed by Russ Varela MD 03/01/18 15:59: I examined this patient and my medical decision-making was reviewed with the Medical Student. I agree with the documented findings, disposition and treatment plan as described except to the extent set forth below. Patient continues to improve. Had one episode of emesis but she states overall doing well. Denies fevers/chills, dysuria, dizziness, CP/SOB. VS: reviewed Physical exam: Gen: NAD, CVS: RRR, Lungs: CTAB, and: soft, nt/nd, Ext: no edema. 1. Septic Shock secondary to E coli UTI - Resolved, hemodynamically stable 2. NSTEMI type II - demand ischemia from septic shock. Troponins trended down. 3. Acute anemia - does not appear to be acute blood loss. 4. C diff colitis 5. Campylonacter gastroenteritis - Rocephin/Azithromycin to cover E coli (riojas-sensitive), Campylobacter. DC Zosyn. - Oral Vancomycin - HFrEF: started on low dose metoprolol. Will add lisinopril now. - Heparin SQ Q8H for DVT prophylaxis. - Since patient is no longer is septic shock, plan for [facility] tomorrow. Original Note: <Tesha Leung N - Last Filed: 03/01/18 13:07> Hospitalist Progress Note - Encounter Date of Encounter: 03/01/18 Time of Encounter: 09:27 - Subjective Interval History: Ms. Aminata Buckley is a 62 year old female hospital day 4 who presented to the ED on 02/25/18 for abdominal pain, N/V, and weakness. She continues to have nausea and a small amount of clear, watery vomit this morning. Her abdominal pain has improved since yesterday. Pt states she had multiple watery bowel movements last night. Pt denies hematemesis and hematochezia. Pt denies CP or SOB. - Exam Vitals: Temp Pulse Resp BP Pulse Ox 97.8 F 96 14 146/94 96 03/01/18 06:21 03/01/18 06:21 03/01/18 06:21 03/01/18 06:21 03/01/18 06:21 Exam: General: alert, cooperative, no distress Head: atraumatic, normocephalic Heart: RRR, no murmurs, rubs, or gallops Lungs: CTAB, no wheezing, no rales Abdomen: hypoactive bowel sounds, mildly TTP in RUQ, no masses Skin: warm, dry, intact Extremities: no pedal edema, no cyanosis. right lower extremity in boot - Assessment and Plan (1) Shock Current Visit: Yes Status: Resolved Assessment and Plan: On admission, pt developed hypotension and had a hemoglobin of 8.5. Pt was then transferred to the ICU where a femoral central line was placed and IV fluid bolus was started. Pt's blood pressure was responsive to IV fluids. 2 units of PRBC's was given which increased her hemoglobin to 11.6. Pt was then transferred out of the ICU and to the general medical floor. -Most likely due to UTI with E. Coli bacteremia Doesn't meet sepsis criteria - -does not meet any criteria for SIRS criteria -shock resolved Plan: -continue 2 grams Ceftriaxone q 24 hours (2) UTI (urinary tract infection) Current Visit: Yes Status: Acute Assessment and Plan: Blood cultures showed E. coli on 02/25 and and urine sample showed nitrates. Urine cx 02/25 showed no growth UA showed 30 mg/dL protein, 15 mg/dL ketones, moderate blook, 3-5 RBC, TNTC WBC, many bacteria, moderate leukocyte esterase Plan: -Blood cultures x2 on 02/27 pending -continue Ceftriaxone on day #2 (3) GI bleed Current Visit: Yes Status: Suspected Assessment and Plan: Upon admission, hemoglobin was found to be 8.5. - Pt's blood pressure was responsive to fluids, - hemoglobin increased after 2 units of PRBCs to 11.6 -Hgb has increased to 11.3 today from 10.8 yesterday -FOBT negative Plan: - Continue to monitor with daily hemoglobin -Continue Protonix IVP -transfuse if hemoglobin less than 8 with symptoms or <7 without s/s (4) Elevated troponin Current Visit: Yes Status: Acute Assessment and Plan: -Most likely from demand ischemia type 2 NC On admission troponin was 1.73. Troponin trended up to 1.85 then trended down to 1.25 Pt continues to deny CP ECHO on 02/26/18 -TTE with LVEF 30-35%, global hypokinesis, mild TR, mild-moderate PH. Plan: -Cardiology recommends [facility] -re-consult Cardiology for C - Add LAURA/ARB prior to discharge - Currently on ASA, atorvastatin, heparin, Lopressor (5) Clostridium difficile colitis Current Visit: Yes Status: Acute Assessment and Plan: GI panel positive from C. Diff and Campylobacter on 02/26 -Pt continues to have diarrhea -Currently on oral Vanco day number 3 (6) Campylobacter gastroenteritis Current Visit: Yes Status: Acute Assessment and Plan: Patients GI panel positive for C. Diff and campylobacter Plan: -patient on Azithromycin day #2 (7) DVT prophylaxis Current Visit: Yes Status: Acute Assessment and Plan: ECPD to left leg, right leg is post-op day 12 after tibial plateau fx On Heparin subQ 5000u Q8 (8) Nausea Current Visit: Yes Status: Acute Assessment and Plan: Pt continues to have nausea and vomiting after eating Plan: -Continue Ondesetron and Promethazine prn -Advance diet to Full liquids (9) Hyperlipemia Current Visit: Yes Status: Acute Assessment and Plan: Chronic -On Atorvastatin -Continue home dose (10) Anxiety Current Visit: Yes Status: Acute Assessment and Plan: Chronic -on Busprirone -Continue home dose (11) Insomnia Current Visit: Yes Status: Acute Assessment and Plan: Chronic -on Trazodone -Continue home dose (12) Depression Current Visit: Yes Status: Acute Assessment and Plan: Chronic -on Escitalopram -Continue home dose (13) Coronary artery disease Current Visit: Yes Status: Acute Assessment and Plan: Chronic -on ASA, atorvastatin, Lopressor, heparin SQ DVT Prophylaxis: ECPD to left leg, right leg is post-op day 12 On Heparin subQ 5000u Q8 - Time Spent with Patient Total time spent is greater than 50% in coordination of care (as documented) at patient's floor/unit and/or counseling patient: less than 15 minutes Internal Medicine: Result - Labs CBC & Chem 7: 03/01/18 05:51 03/01/18 05:51 Labs: Short CBC 03/01/18 Range/Units 05:51 WBC 10.0 (4.3-11.1) K/mcL Hgb 11.3 L (11.5-15.4) g/dL Hct 34.3 L (35.3-44.9) % Plt Count 466 H (140-400) K/mcL Neutrophils # 8.3 (1.6-8.9) K/mcL BMP 03/01/18 05:51 Sodium 136 Potassium 3.5 Chloride 103 Carbon Dioxide 27 BUN 12 Creatinine 0.59 L Glucose 122 H Calcium 8.1 L - ABG Interpretation ABG results: PT/INR, D-dimer PT 14.4 Seconds (9.4-12.1) H 02/26/18 15:35 - VTE Reasons for not Prescribing Prophylaxis: Medical contraindication Documentation of Mechanical Device: Intermittent pneumatic compression device Consult Discharge Plan - Plan Referrals: Paras Horvath MD [Primary Care Provider] - <Russ Varela - Last Filed: 03/01/18 15:46> Hospitalist Progress Note - Exam Vitals: Temp Pulse Resp BP Pulse Ox 97.9 F 86 16 136/90 100 03/01/18 14:38 03/01/18 14:38 03/01/18 14:38 03/01/18 14:38 03/01/18 14:38 - Assessment and Plan (1) Non-STEMI (non-ST elevated myocardial infarction) Current Visit: Yes Status: Acute (2) Shock Current Visit: Yes Status: Resolved (3) UTI (urinary tract infection) Current Visit: Yes Status: Acute (4) GI bleed Current Visit: Yes Status: Suspected (5) DVT prophylaxis Current Visit: Yes Status: Acute - Time Spent with Patient Total time spent is greater than 50% in coordination of care (as documented) at patient's floor/unit and/or counseling patient: Internal Medicine: Result - Labs CBC & Chem 7: 03/01/18 05:51 03/01/18 05:51 Labs: Short CBC 03/01/18 Range/Units 05:51 WBC 10.0 (4.3-11.1) K/mcL Hgb 11.3 L (11.5-15.4) g/dL Hct 34.3 L (35.3-44.9) % Plt Count 466 H (140-400) K/mcL Neutrophils # 8.3 (1.6-8.9) K/mcL [facility] 03/01/18 05:51 Sodium 136 Potassium 3.5 Chloride 103 Carbon Dioxide 27 BUN 12 Creatinine 0.59 L Glucose 122 H Calcium 8.1 L - ABG Interpretation ABG results: PT/INR, D-dimer PT 14.4 Seconds (9.4-12.1) H 02/26/18 15:35 - Attending Attestation I examined this patient and my medical decision-making was reviewed with the Re sident Physician. I agree with the documented findings, disposition and treatment plan as described except to the extent set forth below. <Tesha Leung - Last Filed: 03/01/18 13:07> (2) UTI (urinary tract infection) Qualifiers: Urinary tract infection type: acute cystitis Hematuria presence: without hematuria Qualified Code(s): N30.00 - Acute cystitis without hematuria (3) GI bleed Qualifiers: GI bleed type/associated pathology: unspecified gastrointestinal hemorrhage type Qualified Code(s): K92.2 - Gastrointestinal hemorrhage, unspecified (11) Insomnia Qualifiers: Insomnia type: unspecified Qualified Code(s): G47.00 - Insomnia, unspecified (12) Depression Qualifiers: Depression Type: unspecified Qualified Code(s): F32.9 - Major depressive disorder, single episode, unspecified (13) Coronary artery disease Qualifiers: Coronary Disease-Associated Artery/Lesion type: [place] artery [place] vs. transplanted heart: [place] heart Associated angina: angina presence unspecified Qualified Code(s): I25.10 - Atherosclerotic heart disease of [place] coronary artery without angina pectoris <Russ Varela - Last Filed: 03/01/18 15:46> (3) UTI (urinary tract infection) Qualifiers: Urinary tract infection type: acute cystitis Hematuria presence: without hematuria Qualified Code(s): N30.00 - Acute cystitis without hematuria (4) GI bleed Qualifiers: GI bleed type/associated pathology: unspecified gastrointestinal hemorrhage type Qualified Code(s): K92.2 - Gastrointestinal hemorrhage, unspecified
[2018-03-01] MEDS: Pantoprazole 40 MG VIAL IVP SCH (10:53)
[2018-03-01] MEDS: *HR* Promethazine 25 MG/ML VIAL IVP PRN (10:54)
[2018-03-01] MEDS: Vancomycin Oral Soln 125 MG/2.5 ML UDC PO SCH ×4 (10:56→21:26)
[2018-03-01] MEDS: traZODone 50 MG TABLET PO SCH (21:22)
[2018-03-02] MEDS: Ondansetron 4 MG/2 ML VIAL IVP SCH ×4 (01:06→18:27)
[2018-03-02 04:42] LABS: Basophils % 0.4 %; Eosinophils # 0.1 K/mcL (0.0-0.6); Eosinophils % 1.1 %; Hematocrit 34.2 % (35.3-44.9); Hemoglobin 11.3 g/dL (11.5-15.4); Immature Granulocytes % 1.4 % (0-4); Lymphocytes # 0.9 K/mcL (0.6-4.6); Mean Corpuscular Hemoglobin 30.3 pg (28.0-33.3); Mean Corpuscular Volume 91.7 fL (83.0-100.0); Mean Platelet Volume 9.2 fL (9.4-12.4); Monocytes # 0.8 K/mcL (0.0-1.3); Monocytes % 10.3 %; Neutrophils # 6.1 K/mcL (1.6-8.9); Platelet Count 472 K/mcL (140-400); Red Blood Count 3.73 M/mcL (3.82-4.97); Red Cell Distribution Width 13.1 % (11.5-14.5); Segmented Neutrophils % 75.8 %
[2018-03-02 05:00] LABS: BUN/Creatinine Ratio 12 (6-26); Blood Urea Nitrogen 7 mg/dL (8-23); Calcium 8.4 mg/dL (8.6-10.3); Carbon Dioxide 32 mEq/L (23-29); Chloride 102 mEq/L (98-107); Glucose 130 mg/dL (70-105); Osmolality,Calculated 288 (280-300); Potassium 3.6 mEq/L (3.5-5.1); Sodium 139 mEq/L (136-145); eGFR For Non-African Americans > 60 (> 60)
[2018-03-02] MEDS: *HR* Heparin 5,000 UNIT/ML VIAL SQ SCH (05:58)
[2018-03-02] MEDS: Magnesium Oxide 400 MG TABLET PO SCH ×2 (09:38→21:01)
[2018-03-02] MEDS: Cyanocobalamin (B-12) 1,000 MCG TABLET PO SCH (09:39)
[2018-03-02] MEDS: Aspirin 81 MG TAB.CHEW PO SCH (09:40)
[2018-03-02] MEDS: Vancomycin Oral Soln 125 MG/2.5 ML UDC PO SCH ×4 (09:41→21:01)
--- NOTE | 2018-03-02 10:03 | Internal Med Progress Note ---
<AricrejiDavid raymondTesha N - Last Filed: 03/02/18 12:40> Hospitalist Progress Note - Encounter Date of Encounter: 03/02/18 Time of Encounter: 09:58 - Subjective Interval History: Ms. Aminata Buckley is a 62 year old female hospital day 4 who presented to the ED on 02/25/18 with abdominal pain, N/V, and weakness. Her nausea is improving. Pt denies vomiting, abdominal pain, hematemesis, hematochezia, CP, SOB. Pt continues to have multiple watery bowel movements. Pt complains of R knee pain secondary to her R tibial plateau fx surgery. Pt denies calf tenderness or calf swelling. - Exam Vitals: Temp Pulse Resp BP Pulse Ox 98.1 F 90 16 156/97 95 03/02/18 08:29 03/02/18 08:29 03/02/18 08:29 03/02/18 08:29 03/02/18 08:29 Exam: General: alert, cooperative, no distress Head: atraumatic, normocephalic Heart: RRR, no murmurs, rubs, or gallops Lungs: CTAB, no wheezing, no rales Abdomen: hypoactive bowel sounds, no tenderness, no masses Skin: warm, dry, intact Extremities: no cyanosis. right lower extremity in boot with swelling around right lateral malleolus - Assessment and Plan (1) Shock Current Visit: Yes Status: Resolved Assessment and Plan: On admission, pt developed hypotension and had a hemoglobin of 8.5. Pt was then transferred to the ICU where a femoral central line was placed and IV fluid bolus was started. Pt's blood pressure was responsive to IV fluids. 2 units of PRBC's was given which increased her hemoglobin to 11.6. Pt was then transferred out of the ICU and to the general medical floor. -Most likely due to UTI with E. Coli bacteremia Doesn't meet sepsis criteria - -does not meet any criteria for SIRS criteria -shock resolved Plan: -continue 2 grams Ceftriaxone q 24 hours day #3 -PT/OT ordered (2) UTI (urinary tract infection) Current Visit: Yes Status: Acute Assessment and Plan: Blood cultures showed E. coli on 02/25 and and urine sample showed nitrates. Urine cx 02/25 showed no growth. UA showed 30 mg/dL protein, 15 mg/dL ketones, moderate blook, 3-5 RBC, TNTC WBC, many bacteria, moderate leukocyte esterase Plan: -Blood cultures x2 on 02/27 still have no growth -continue Ceftriaxone on day #3 -discontinue khanna after LHC (3) Non-STEMI (non-ST elevated myocardial infarction) Current Visit: Yes Status: Acute Assessment and Plan: Most likely from demand ischemia type 2 NE On admission troponin was 1.73. Troponin trended up to 1.85 then trended down to 1.25 Pt continues to deny CP ECHO on 02/26/18 -TTE with LVEF 30-35%, global hypokinesis, mild TR, mild-moderate PH. Plan: - LHC planned for today - keep NPO for procedure - hold heparin for procedure - wean off supplemental oxygen - Currently on ASA, atorvastatin, Lopressor, lisinopril (4) Clostridium difficile colitis Current Visit: Yes Status: Acute Assessment and Plan: GI panel positive from C. Diff and Campylobacter on 02/26 -Pt continues to have diarrhea -GI symptoms improving -Currently on oral Vanco day number 4 (5) Campylobacter gastroenteritis Current Visit: Yes Status: Acute Assessment and Plan: Patients GI panel positive for C. Diff and campylobacter -GI symptoms improving Plan: -patient on Azithromycin day #3 (6) DVT prophylaxis Current Visit: Yes Status: Acute Assessment and Plan: ECPD to left leg, right leg is post-op day 13 -hold heparin for LHC (7) Hyperlipemia Current Visit: Yes Status: Acute Assessment and Plan: - on Atorvastatin -Continue home dose (8) Anxiety Current Visit: Yes Status: Acute Assessment and Plan: continue home Busprirone (9) Insomnia Current Visit: Yes Status: Acute Assessment and Plan: continue home trazodone (10) Depression Current Visit: Yes Status: Acute Assessment and Plan: Chronic -on Escitalopram -Continue home dose (11) Coronary artery disease Current Visit: Yes Status: Acute Assessment and Plan: on ASA, atorvastatin, Lopressor, lisinopril -hold heparin for LHC DVT Prophylaxis: ECPD to left leg, right leg is post-op day 12 -hold heparin for procedure - Time Spent with Patient Total time spent is greater than 50% in coordination of care (as documented) at patient's floor/unit and/or counseling patient: Internal Medicine: Result - Labs CBC & Chem 7: 03/02/18 04:13 03/02/18 04:13 Labs: Short CBC 03/02/18 Range/Units 04:13 WBC 8.1 (4.3-11.1) K/mcL Hgb 11.3 L (11.5-15.4) g/dL Hct 34.2 L (35.3-44.9) % Plt Count 472 H (140-400) K/mcL Neutrophils # 6.1 (1.6-8.9) K/mcL BMP 03/02/18 04:13 Sodium 139 Potassium 3.6 Chloride 102 Carbon Dioxide 32 H BUN 7 L Creatinine 0.58 L Glucose 130 H Calcium 8.4 L - ABG Interpretation ABG results: PT/INR, D-dimer PT 14.4 Seconds (9.4-12.1) H 02/26/18 15:35 - VTE Reasons for not Prescribing Prophylaxis: Medical contraindication Documentation of Mechanical Device: Intermittent pneumatic compression device Consult Discharge Plan - Plan Referrals: Paras Horvath MD [Primary Care Provider] - Prescriptions: RX: Aspirin 81 mg PO DAILY #30 tab.chew RX: Lisinopril [Zestril] 5 mg PO DAILY #30 tablet RX: Metoprolol XL (24 HR) Succ [Toprol Xl] 25 mg PO DAILY #30 tab.er.24h RX: Vancomycin Oral Soln [Firvanq] 125 mg PO QID 10 Days #1000 udc <Russ Varela - Last Filed: 03/04/18 21:05> Hospitalist Progress Note - Exam Vitals: Temp Pulse Resp BP Pulse Ox 98.0 F 82 16 123/77 89 03/04/18 20:56 03/04/18 20:56 03/04/18 20:56 03/04/18 20:56 03/04/18 20:56 - Assessment and Plan (1) Septic shock Current Visit: Yes Status: Acute (2) UTI (urinary tract infection) Current Visit: Yes Status: Acute (3) Non-STEMI (non-ST elevated myocardial infarction) Current Visit: Yes Status: Acute (4) Cardiac LV ejection fraction 30-35% Current Visit: Yes Status: Acute (5) DVT prophylaxis Current Visit: Yes Status: Acute (6) Campylobacter gastroenteritis Current Visit: Yes Status: Acute (7) Clostridium difficile colitis Current Visit: Yes Status: Acute (8) Coronary artery disease Current Visit: Yes Status: Acute - Time Spent with Patient Total time spent is greater than 50% in coordination of care (as documented) at patient's floor/unit and/or counseling patient: Internal Medicine: Result - Labs CBC & Chem 7: 03/04/18 01:05 03/04/18 06:10 Labs: Short CBC 03/04/18 Range/Units 01:05 WBC 6.1 (4.3-11.1) K/mcL Hgb 10.5 L (11.5-15.4) g/dL Hct 31.5 L (35.3-44.9) % Plt Count 455 H (140-400) K/mcL Neutrophils # 3.9 (1.6-8.9) K/mcL BMP 03/04/18 03/04/18 01:05 06:10 Sodium 140 139 Potassium 2.9 L 3.7 D Chloride 97 L 97 L Carbon Dioxide 35 H 34 H BUN 4 L 5 L Creatinine 0.55 L 0.56 L Glucose 99 93 Calcium 8.1 L 8.4 L - ABG Interpretation ABG results: PT/INR, D-dimer PT 14.4 Seconds (9.4-12.1) H 02/26/18 15:35 - Attending Attestation I examined this patient and my medical decision-making was reviewed with the [facility] student and Resident physician. I agree with the documented findings, disposition and treatment plan as described except to the extent set forth below. ____ <Tesha Leung - Last Filed: 03/02/18 12:40> (2) UTI (urinary tract infection) Qualifiers: Urinary tract infection type: acute cystitis Hematuria presence: without hematuria Qualified Code(s): N30.00 - Acute cystitis without hematuria (9) Insomnia Qualifiers: Insomnia type: unspecified Qualified Code(s): G47.00 - Insomnia, unspecified (10) Depression Qualifiers: Depression Type: unspecified Qualified Code(s): F32.9 - Major depressive disorder, single episode, unspecified (11) Coronary artery disease Qualifiers: Coronary Disease-Associated Artery/Lesion type: [place] artery [place] vs. transplanted heart: [place] heart Associated angina: angina presence unspecified Qualified Code(s): I25.10 - Atherosclerotic heart disease of [place] coronary artery without angina pectoris <Russ Varela - Last Filed: 03/04/18 21:05> (2) UTI (urinary tract infection) Qualifiers: Urinary tract infection type: acute cystitis Hematuria presence: without hematuria Qualified Code(s): N30.00 - Acute cystitis without hematuria (8) Coronary artery disease Qualifiers: Coronary Disease-Associated Artery/Lesion type: [place] artery [place] vs. transplanted heart: [place] heart Associated angina: angina presence unspecified Qualified Code(s): I25.10 - Atherosclerotic heart disease of [place] coronary artery without angina pectoris
--- NOTE | 2018-03-02 10:36 | Event Note ---
Date of Encounter: 03/02/18 Time of Encounter: 10:34 - Cardiology Event Note Cardiology reconsulted to evaluate for LHC. Troponins peaked at 1.98 in the setting of GI bleed, shock, sepsis. TTE revealed new CMP--LVEF 30-35%, global hypokinesis, mild TR, mild-moderate PH. GI bleed was thought to be secondary to C-Diff. Received 2 units PRBC 02/26 with stable/improving HGB since that time. HGB 11.3 today. From sepsis standpoint, WBC now WNL. With new cardiomyopathy and troponin, recommend LHC. R/B/A discussed. Pt agrees to proceed. LHC today.
[2018-03-02] MEDS: cefTRIAXone 2,000 MG in Water for inj. (sterile) 20 ML 20 ML IVP SCH (11:36)
[2018-03-02] MEDS: Azithromycin 250 MG TABLET PO SCH (11:37)
[2018-03-02] MEDS ORDERED: *HR* Heparin 10,000 UNIT/10 ML VIAL ONE (13:44)
[2018-03-02] MEDS ORDERED: 0.9 % Sodium Chloride 1,000 ML ONE (13:44)
[2018-03-02] MEDS ORDERED: Heparin 1,000 UNITS/500 mL 500 ML ONE (13:44)
[2018-03-02] MEDS ORDERED: Nitroglycerin 1,000 MCG/10 ML VIAL IV ONE (13:44)
[2018-03-02] MEDS ORDERED: ISOVUE-370 200 ML INFUS..BTL ONE (13:44)
[2018-03-02] MEDS ORDERED: *HR* FentaNYL (PF) 100 MCG/2 ML VIAL ONE (14:23)
[2018-03-02] MEDS ORDERED: *HR* Midazolam HCl 2 MG/2 ML VIAL ONE (14:23)
--- NOTE | 2018-03-02 15:11 | Invasive Diagnostic Lab Proc ---
Name: Aminata Buckley September Date of Study: 03/02/2018 Date: 1955 Ht: 61.0in Medical Record#: [id number] Age: 62 Wt: 119.05lb Gender: Female BSA: 1.59 Order #: [id number] BMI: 22.48 Physicians Procedure Physician: Abiola Banegas MD Referring MD: Referring MD: Staff Name Position Time In Claritza Petty RT Monitor 02:27 PM Parag Almendarez RT (R) Scrub 02:27 PM Aubrey Kruse RN Ream Cutter 02:27 PM Indications Indication Non-Stemi Procedures Performed Procedure L HRT ARTERY/VENTRICLE ANGIO Pre-Procedure Checklist Informed consent is complete signed and on chart. H&P is on chart. ID band is on and ID verified with patient. Patient NPO for procedure The procedure was described for the patient and questions were answered. Blood Pressure: 114/86 ECG is on chart. Rhythm: NSR Plan of Care Patient will tolerate the procedure without complications. Adequate level of comfort will be maintained. Hemodynamics will remain stable Patient will recover from procedure without complications. Respiratory function will be maintained. Cardiac rhythm will remain stable. Patient temperature will be maintained. Patient and/or family have verbalized understanding of the procedure. Patient Education Chief Complaint/Reason for Test: Cardiac Cath Developmental Category: Adult (18-64 years) Developmentally Appropriate for Age: Yes Learning Barriers: None Education Needs: Procedure Education Method: Verbal Information Taught: Cardiac Cath Educational Evaluation: Able to repeat information Intravenous Access Time IV Size Location DC'd Fluid/Drip Rate Units RN 22g 1" Patent On Arrival 0.9NaCl ml/hr 20g 1 1/4" Peripheral-Lock On Arrival Allergies No Known Allergies Vital Signs Time BP (mmHg) HR (bpm) O2 Sat. RR (bpm) LOC 02:28 PM / % 5 = Fully awake and oriented or at pre-proc level 02:43 PM / % 4 = Oriented but drowsy 02:28 PM 144 / 99 94 89 % 9 02:32 PM 114 / 86 98 86 % 21 02:37 PM 124 / 91 97 92 % 20 02:42 PM 137 / 91 97 93 % 18 02:47 PM 130 / 91 96 94 % 16 02:52 PM 134 / 91 92 95 % 16 02:57 PM 137 / 91 94 96 % 19 Procedural Medications Time Medication Dose Units Method Given By 02:27 PM Oxygen 2 L/min nasal cannula Aubrey Kruse RN 02:28 PM Versed 1 mg Intravenous Aubrey Kruse RN 02:28 PM Fentanyl 50 mcg Intravenous Aubrey Kruse RN 02:31 PM Oxygen 6 L/min Oxy Mask Aubrey Kruse RN 02:35 PM Lidocaine 2% 10 ml Subcutaneous Abiola Banegas MD ASA Classification: CLASS III- Severe systemic disease (i.e. prior AMI, diabetes with vascular complications, morbid obesity) Beatrice Score Preprocedure Postprocedure Activity 2- Moves 4 extremities sustained head lift Activity Circulation 2- SBP +/= 20 points of pre-anesthetic level Circulation Consciousness 2- Awake and alert oriented x 3 Consciousness O2 Saturation 2- Able to maintain O2 satruation of 92% on room air O2 Saturation Respiratory 2- Able to deep breathe and cough well Respiratory Total Score 10 Total Score Contrast Agent: Isovue Diagnostic Contrast: 20 ml Total Contrast: 20 ml Fluoro Dose: 11 mGy Procedure Log Time Note Enter By 02:15 PM CathStat 02:26 PM Vitals capture started with the following parameters, Patient=Adult, Interval=5 min, Initial Gjizndmx=357 mmHg, Deflation Rate=3 mmHg, Cuff placed on Right Arm 02: PM Pt arrived to metallurgy laboratory technician 1 at 14:27 : PM Claritza Petty Position: Monitor Time in: 14::27 PM Parag Almendarez RT (R) Position: Scrub Time in: 14:27 : PM Patient charges- Angio tray pack, Navilyst 3mm J, Pulse Oximetry and ACIST tubing and transducer : PM Aubrey Kruse RN Position: Ream Cutter Time in: 14:27 :27 PM IV Supplies used: J loop Angio Cath. : PM Case Delayed No : PM Hair removed from procedure site in holding area using clippers. Bilateral groin prepped with Chloraprep by Claritza Petty RT, then patient was draped. Skin intact. : PM Physician arrived 14:27 allner :27 PM ASA Class CLASS III- Severe systemic disease (i.e. prior AMI, diabetes with vascular complications, morbid obesity) kk 02: PM Meet and greet completed : PM Sign in performed according to hospital policy. Informed consent was obtained. : PM Procedure start 14:: PM Time: 14: Oxygen on at 2 L/min per nasal cannula by Aubrey Kruse RN dejon : PM Time: 14: Versed 1 mg Intravenous Given by Aubrey Kruse RN dejon : PM HR=94 bpm, QMXE=960/99 mmhg, SpO2=89.0 %, Resp=9 B/min 02: PM Time: 14: Fentanyl 50 mcg Intra[facility]ous [facility] PM Time: 14:28 Patient comfortable and pain free: Yes PM Time: 14:28LOC: 5 = Fully awake and oriented or at pre-proc level 02: PM Clinical Presentation: Non-STEMI ner : PM Pressure channel 1 zero failed. 02: PM Pressure channel 1 zeroed. 02:31 PM Time: 14:31 Oxygen on at 6 L/min per Oxy Mask by Aubrey Kruse RN 02:32 PM HR=98 bpm, NLSP=999/86 mmhg, SpO2=86.0 %, Resp=21 B/min 02:34 PM Time out was performed according to hospital policy. Conscious sedation and anesthesia was achieved (see medication log with in this report above) 02:35 PM Time: 14:35 10 ml Lidocaine 2% to right groin Subcutaneous Given by Abiola Banegas MD 02:36 PM Micro-Introducer Kit utilized for sheath placement kk 02:36 PM Bolus angiogram of right Femoral complete: hand injected ner 02:37 PM HR=97 bpm, SATS=339/91 mmhg, SpO2=92.0 %, Resp=20 B/min 02:37 PM Access obtained by percutaneous puncture. 6Fr 10cm Terumo [place] sheath placed in right Femoral artery. [id number] ner 02:38 PM Recorded Pressure: Ao, HR=94, Condition=Condition 1 (Aorta) Ao 103/59/79 02:38 PM Recorded Pressure: LV, HR=97, Condition=Condition 1 (Left Ventricle) LV 129/6/9 02:38 PM Recorded Pressure: LV, Ao, HR=95, Condition=Condition 1 (Left Ventricle) LV 127/7/11, (Aorta) Ao 130/78/101 02:38 PM 5Fr FR 4 catheter inserted over the wire DN [email or web address] 02:38 PM wire removed kkallner 02:38 PM Recorded Pressure: Ao, HR=96, Condition=Condition 1 (Aorta) Ao 115/89/103 02:39 PM Catheter crossed the aortic valve and was selectively placed in the left ventricle. Pressures recorded on pullback for left heart catheterization. [email or web address] 02:39 PM pressures recorded kkallner 02:39 PM JR4 repositioned into RCA kkallner 02:39 PM RCA angiography performed in multiple views. [email or web address] 02:39 PM Catheter removed kkallner 02:39 PM 5Fr FL 4 catheter inserted over the wire DN kkallner 02:39 PM wire removed kkallner 02:39 PM LCA angiography performed in multiple views. [email or web address] 02:40 PM Recorded Pressure: Ao, HR=99, Condition=Condition 1 (Aorta) Ao 132/78/103 02:42 PM HR=97 bpm, QAIX=691/91 mmhg, SpO2=93.0 %, Resp=18 B/min 02:42 PM Coronary Dominance: right kkallner 02:43 PM Left Main Coronary Artery with 0% stenosis kkallner 02:43 PM Proximal Left Anterior Descending Coronary Artery with 0% stenosis. If graft is supplying this territory, 0 % stenosis. kkallner 02:43 PM Mid/Distal Left Anterior Descending Coronary Artery and diagonal branches with 0% stenosis. If graft is supplying this area, 0 % stenosis kkallner 02:43 PM Circumflex, Obtuse Marginal, Left Posterior Descending, and Left Posterolateral Coronary Arteries with 0 % stenosis. If graft is supplying this area, 0 % stenosis kkallner 02:43 PM Right Coronary, Right Posterior Descending Arteries with Right Posterolateral and Acute Marginal branches with 0 % stenosis. If graft is supplying this area, 0 % stenosis kkallner 02:43 PM Ramus with 0% stenosis. If graft is supplying this area, 0 % stenosis kkallner 02:43 PM Procedure completed at 14:43 03/02/2018 [email or web address] 02:43 PM Did you address BRIDGER flow and Dominance? Yes [email or web address] 02:43 PM Sign out completed: Radiation Dose 94.53 mGy, 10.58 Gy/cm2 Fluoro Time: 1.2 Isovue 370 - 200ml contrast 20 ml given by Abiola Banegas MD. Complications: None. The patient was discharged out of the lab scientist in stable condition. Cardiac Rehab Consult needed: YesConfirmed administered medications: Yes [email or web address] 02:44 PM Isovue 370 - 200ml,1 Bottle(s) used. [email or web address] 02:44 PM Estimated Blood Loss: minimal kkallner 02:44 PM Post ECG NSR kkallner 02:44 PM Post Blood Pressure 137/91 kkallner 02:45 PM 14:45 Post Pulses Bilateral DP & PT 2+ kkallner 02:45 PM Information taught Cardiac Cath kkallner 02:45 PM Education needs Procedure, Plan of Care, and Responsibilities of Patient in Care [email or web address] 02:45 PM Learning barriers :None kkallner 02:45 PM Education Methods Verbal kkallner 02:45 PM Education evaluation Able to repeat information kkallner 02:45 PM Site status No bleeding/hematoma - Rt Groin as reported by Parag Almendarez RT (R) at 14:45 [email or web address] 02:45 PM Opsite applied kkallner 02:45 PM Plavix, Effient or Brilinta given No kkallner 02:46 PM Delay to floor No kkallner 02:46 PM no family at this time kkallner 02:46 PM Complications: None kkallner 02:47 PM HR=96 bpm, GKPG=943/91 mmhg, SpO2=94.0 %, Resp=16 B/min 02:52 PM HR=92 bpm, XRAR=056/91 mmhg, SpO2=95 %, Resp=16 B/min 02:53 PM Report given to Berkley DYER Pt taken to 3A Room #21. 14:53 [email or web address] 02:57 PM HR=94 bpm, ORLX=984/91 mmhg, SpO2=96.0 %, Resp=19 B/min 02:58 PM Time: 14:43LOC: 4 = Oriented but drowsy kkallner 03:01 PM Arterial sheath pulled using manual compression and V+ Pad for 15 minutes by Parag Almendarez RT (R) kkallner 03:01 PM Site status No bleeding/hematoma - Rt Groin as reported by Parag Almendarez RT (R) at 15:01 [email or web address] 03:01 PM Opsite applied serena Complications Complication None None Hemodynamics Pressures Site Systolic/A Wave Diastolic/V Wave Mean AO 103 59 79 LV 129 6 9 LV 127 7 11 AO 130 78 101 AO 115 89 103 AO 132 78 103 Post Procedure Information Blood Pressure: 137/91 mmHg Rhythm: NSR Post procedural instructions were given Site Checks Time Location Status Staff Sheath In? Note 02:45 PM Rt Groin No bleeding/hematoma Parag Almendarez RT (R) 03:01 PM Rt Groin No bleeding/hematoma Parag Almendarez RT (R) Pulses Time Site Pre-Procedure Post-Procedure Note Bilateral DP & PT 2+ Bilateral radial 1+ 2:45:00 PM Bilateral DP & PT 2+ Updated by RT Aury WuR) on 03/02/2018 3:04:15 PM electronically signed on 03/02/2018 3:04:46 PM with status of Final
--- NOTE | 2018-03-02 15:38 | Electrocardiograph Report ---
[place] [id number] Test Date: 2018-02-25 Pat Name: Aminata Buckley Department: EXAMC2 Room: 3A21 Gender: F Rn Dermatology: : 1955 Requested By: Dong Arce Order Number: [id number] Reading MD: Felipe Tukcer Measurements Intervals [place] Rate: 111 P: 53 WI: 167 QRS: 13 QRSD: 74 T: 46 QT: 339 QTc: 461 Interpretive Statements Sinus tachycardia Electronically Signed On 03-02-2018 15:36:33 EDT by Felipe Tucker
--- NOTE | 2018-03-02 19:23 | Pre-Sedation Evaluation ---
Pre-sedation evaluation - Pre-sedation checklist Date of procedure: 02/26/18 Procedure: LHC Recent Vitals: Last Vital Signs Temp 97.9 F 03/02/18 13:46 Pulse 90 03/02/18 13:46 Resp 15 03/02/18 13:46 BP 138/92 03/02/18 13:46 Pulse Ox 97 03/02/18 13:46 ASA Classification *see protocol: CLASS II-Mild systemic disease Cardiac Registry (Cardio Only) - Functional Capacity Functional Capacity: >=4 METS with symptoms - Clincal Frailty Scale Clinical Frailty Scale: Mildly Frail
--- NOTE | 2018-03-02 19:25 | Event Note ---
Date of Encounter: 03/02/18 Time of Encounter: 14:45 - Cardiology Event Note Per discussion with Dr. Banegas, [facility] showed "normal coronaries". Cardiology will s/o, f/u as planned.
--- NOTE | 2018-03-02 19:43 | Event Note ---
Date of Encounter: 03/02/18 Time of Encounter: 11:00 I examined this patient and my medical decision-making was reviewed with the Medical student and Resident Physician. I agree with the documented findings, disposition and treatment plan as described except to the extent set forth below. The EMR system will currently not let me make addendum to their note. The patient returned from [facility]. Unremarkable LH, and patient currently in no acute distress. However, she is still requiring supplemental O2, at bedside on 2L NC she was saturating 87%. She will need I.S., increased activity, and weaning of O2. Remove Flores cath and begin voiding trial. PT/OT recommends SNF, but patient prefers to be discharged home instead. I did discuss with her family member and the patient at bedside that she would be safer to do rehab. She will consider this while she weans off oxygen. Of note, today is start of the weekend and if she agrees to SNF, she will need to remain until Monday.
[2018-03-02] MEDS: traZODone 50 MG TABLET PO SCH (21:00)
[2018-03-03] MEDS: Ondansetron 4 MG/2 ML VIAL IVP SCH ×4 (00:10→18:13)
[2018-03-03 05:34] LABS: Basophils % 0.4 %; Eosinophils # 0.1 K/mcL (0.0-0.6); Eosinophils % 1.8 %; Hematocrit 33.7 % (35.3-44.9); Hemoglobin 11.1 g/dL (11.5-15.4); Immature Granulocytes % 1.9 % (0-4); Lymphocytes # 0.9 K/mcL (0.6-4.6); Lymphocytes % 13.3 %; Mean Corpuscular HGB Conc 32.9 g/dL (31.6-35.5); Mean Corpuscular Hemoglobin 30.4 pg (28.0-33.3); Mean Corpuscular Volume 92.3 fL (83.0-100.0); Mean Platelet Volume 8.8 fL (9.4-12.4); Monocytes # 0.7 K/mcL (0.0-1.3); Monocytes % 10.5 %; Neutrophils # 4.8 K/mcL (1.6-8.9); Platelet Count 452 K/mcL (140-400); Red Blood Count 3.65 M/mcL (3.82-4.97); Red Cell Distribution Width 12.9 % (11.5-14.5); Segmented Neutrophils % 72.1 %
[2018-03-03 05:48] LABS: Alanine Aminotransferase 18 Units/L (7-52); Albumin 2.7 g/dL (3.5-5.7); Albumin/Globulin Ratio 1.2 (1.1-2.2); Alkaline Phosphatase 72 Units/L (34-104); Aspartate Amino Transferase 20 Units/L (13-39); BUN/Creatinine Ratio 11 (6-26); Bilirubin,Total 0.3 mg/dL (0.3-1.0); Blood Urea Nitrogen 6 mg/dL (8-23); Calcium 8.3 mg/dL (8.6-10.3); Carbon Dioxide 34 mEq/L (23-29); Chloride 101 mEq/L (98-107); Globulin 2.3 g/dL (2.4-3.5); Glucose 106 mg/dL (70-105); Osmolality,Calculated 290 (280-300); Potassium 3.6 mEq/L (3.5-5.1); Sodium 141 mEq/L (136-145); eGFR For Non-African Americans > 60 (> 60)
[2018-03-03] MEDS: *HR* Heparin 5,000 UNIT/ML VIAL SQ SCH ×3 (06:50→20:24)
[2018-03-03] MEDS: Aspirin 81 MG TAB.CHEW PO SCH (08:36)
[2018-03-03] MEDS: Cyanocobalamin (B-12) 1,000 MCG TABLET PO SCH (08:37)
[2018-03-03] MEDS: Magnesium Oxide 400 MG TABLET PO SCH ×2 (08:37→20:23)
[2018-03-03] MEDS: Metoprolol XL (24 HR) Succ 25 MG TAB.ER.24H PO SCH (08:38)
[2018-03-03] MEDS: Vancomycin Oral Soln 125 MG/2.5 ML UDC PO SCH ×4 (08:39→20:24)
--- NOTE | 2018-03-03 09:57 | Internal Med Progress Note ---
Hospitalist Progress Note - Exam Vitals: Temp Pulse Resp BP Pulse Ox 97.5 F L 81 16 147/88 95 03/03/18 07:44 03/03/18 07:44 03/03/18 07:44 03/03/18 07:44 03/03/18 07:44 - Assessment and Plan (1) Non-STEMI (non-ST elevated myocardial infarction) Current Visit: Yes Status: Acute (2) Shock Current Visit: Yes Status: Resolved (3) UTI (urinary tract infection) Current Visit: Yes Status: Acute (4) GI bleed Current Visit: Yes Status: Resolved (5) DVT prophylaxis Current Visit: Yes Status: Acute - Time Spent with Patient Total time spent is greater than 50% in coordination of care (as documented) at patient's floor/unit and/or counseling patient: Internal Medicine: Result - Labs CBC & Chem 7: 03/03/18 05:15 03/03/18 05:15 Labs: Short CBC 03/03/18 Range/Units 05:15 WBC 6.7 (4.3-11.1) K/mcL Hgb 11.1 L (11.5-15.4) g/dL Hct 33.7 L (35.3-44.9) % Plt Count 452 H (140-400) K/mcL Neutrophils # 4.8 (1.6-8.9) K/mcL BMP 03/03/18 05:15 Sodium 141 Potassium 3.6 Chloride 101 Carbon Dioxide 34 H BUN 6 L Creatinine 0.56 L Glucose 106 H Calcium 8.3 L Liver Function 03/03/18 Range/Units 05:15 Total Bilirubin 0.3 (0.3-1.0) mg/dL AST 20 (13-39) Units/L ALT 18 (7-52) Units/L Alkaline Phosphatase 72 (34-104) Units/L Albumin 2.7 L (3.5-5.7) g/dL - ABG Interpretation ABG results: PT/INR, D-dimer PT 14.4 Seconds (9.4-12.1) H 02/26/18 15:35 - VTE Reasons for not Prescribing Prophylaxis: Medical contraindication Documentation of Mechanical Device: Intermittent pneumatic compression device Consult Discharge Plan - Plan Referrals: Paras Horvath MD [Primary Care Provider] - (3) UTI (urinary tract infection) Qualifiers: Urinary tract infection type: acute cystitis Hematuria presence: without hematuria Qualified Code(s): N30.00 - Acute cystitis without hematuria (4) GI bleed Qualifiers: GI bleed type/associated pathology: unspecified gastrointestinal hemorrhage type Qualified Code(s): K92.2 - Gastrointestinal hemorrhage, unspecified
[2018-03-03] MEDS: cefTRIAXone 2,000 MG in Water for inj. (sterile) 20 ML 20 ML IVP SCH (12:56)
--- NOTE | 2018-03-03 15:29 | Discharge Summary ---
- NOTES TO OUTPATIENT PROVIDER Notes to Outpatient Provider: - Wean oxygen as tolerated. - Followup with weakness. PT/OT recommended SNF but patient refused. - Acute anemia was likely from septic shock, but should monitor for any signs/symptoms of GI bleed. Will need to resume Xarelto for DVT prophylaxis since she had recent ortho surgery prior to admission. - Echocardiogram EF 30-35%, started on lisinopril. Metoprolol dose was adjusted. - Recheck CBC and BMP in 3 days. Orders not resulted at time of discharge: Pending orders 02/26/18 04:13 Urinalysis Dipstick Only [URIN] Stat 02/27/18 14:40 Culture,Blood [BC] Routine Date of Encounter: 03/03/18 Time of Encounter: 15:27 - Discharge Diagnosis (1) Septic shock Priority: Primary Status: Acute Assessment and Plan: Secondary to UTI. Resolved with antibiotics. (2) UTI (urinary tract infection) Priority: Secondary Status: Acute Assessment and Plan: Treated with Rocephin. Qualifiers: Urinary tract infection type: acute cystitis Hematuria presence: without hematuria Qualified Code(s): N30.00 - Acute cystitis without hematuria (3) Non-STEMI (non-ST elevated myocardial infarction) Priority: Secondary Status: Acute Assessment and Plan: Secondary to septic shock. Cardiology was consulted and she had a LHC during admission that was unremarkable. She did have EF 30-35% on echocardiogram. (4) Cardiac LV ejection fraction 30-35% Priority: Secondary Status: Acute Assessment and Plan: She had her BB metoprolol increased, and she was started on lisinopril. (5) DVT prophylaxis Priority: Secondary Status: Acute Assessment and Plan: She was on Xarelto at home due to a recent ortho surgery on right knee. GI bleed is not likely cause of her acute anemia anemia. It appears to be due to septic shock, but she should still have close monitoring with CBC in 3 days while resuming Xarelto. (6) Campylobacter gastroenteritis Priority: Secondary Status: Acute Assessment and Plan: Treated with Azithromycin during admission. (7) Clostridium difficile colitis Priority: Secondary Status: Acute Assessment and Plan: Being discharged home with Vancomycin PO. (8) Coronary artery disease Priority: Secondary Status: Acute Qualifiers: Coronary Disease-Associated Artery/Lesion type: crow artery Elem vs. transplanted heart: crow heart Associated angina: angina presence unspecified Qualified Code(s): I25.10 - Atherosclerotic heart disease of crow coronary artery without angina pectoris Hospital course: Ms. Buckley is a 62 year old female - Time Spent with Patient Total time spent providing and/or coordinating discharge services: Greater than 30 minutes - Discharge Medications Prescriptions: RX: Aspirin 81 mg PO DAILY #30 tab.chew RX: Lisinopril [Zestril] 5 mg PO DAILY #30 tablet RX: Metoprolol XL (24 HR) Succ [Toprol Xl] 25 mg PO DAILY #30 tab.er.24h RX: Vancomycin Oral Soln [Firvanq] 125 mg PO QID 10 Days #1000 [facility] Home Medications: RX: Atorvastatin [Lipitor] 10 mg PO HS 02/14/18 [History] RX: Buspirone HCl [Buspar] 15 mg PO BID 02/14/18 [History] RX: Magnesium Oxide [Magnesium] 400 mg PO BID 02/14/18 [History] RX: Megestrol Acetate [Megace] 40 mg PO BID 02/14/18 [History] RX: Sodium Chloride [Sodium Chloride Tab] 1 gm PO DAILY 02/14/18 [History] RX: traZODone [TraZODone] 25 mg PO HS 02/14/18 [History] RX: Azelastine 0.1% Nasal [place] [Astelin] 2 spr NS BID 02/26/18 [History] RX: Cyanocobalamin (Vitamin B-12) [Vitamin B-12] 100 mcg PO DAILY 02/26/18 [History] RX: Escitalopram [Lexapro] 10 mg PO DAILY 02/26/18 [History] RX: HYDROcodone/Acet 7.5/325 mg [Golden 7.5-325 mg] 1 tab PO Q6H PRN 02/26/18 [History] RX: Ipratropium [place] 2 spr NS BID 02/26/18 [History] RX: Naproxen [Naprosyn] 500 mg PO BID 02/26/18 [History] RX: Omeprazole [PriLOSEC] 40 mg PO DAILY 02/26/18 [History] RX: Ondansetron HCl [Zofran] 4 mg PO Q6H PRN 02/26/18 [History] RX: Aspirin 81 mg PO DAILY #30 tab.chew 10/27/18 [Rx] RX: Lisinopril [Zestril] 5 mg PO DAILY #30 tablet 03/03/18 [Rx] RX: Metoprolol XL (24 HR) Succ [Toprol Xl] 25 mg PO DAILY #30 tab.er.24h 03/03/18 [Rx] RX: Vancomycin Oral Soln [Firvanq] 125 mg PO QID 10 Days #1000 [facility] 03/03/18 [Rx] Allergies/Adverse Reactions: Allergy/AdvReac Type Severity Reaction Status Date / Time No Known Allergies Allergy Verified 02/26/18 11:19 Date of admission: 02/26/18 03:46 Primary care physician: Paras Horvath MD Consults: 02/26/18 04:43 Consult to Cardiology [CONS] Routine Comment: Consulting Provider: Jesse Pastor Reason for Consult: NSTEMI; GI bleed suspected Call Completed: No 02/27/18 11:10 Consult to Invasive Line Access Team [CONS] Routine Reason for Consult: poor access Line Type: EPIV 02/28/18 17:26 Consult to Physical Therapy [CONS] Routine Comment: Evaluate, develop and implement POC Reason for Consult: discharge planning Does patient have active BEDREST order?: No Is patient medically & hemodynamically stable?: Yes Patient assessed for mobility or mobilized this visit?: Yes 02/28/18 17:27 Consult to Occupational Therapy [CONS] Routine Comment: Evaluate, develop and implement POC Reason for Consult: discharge planning Does patient have active BEDREST order?: No Is patient medically & hemodynamically stable?: Yes Patient assessed for mobility or mobilized this visit?: Yes 03/01/18 14:58 Consult to Cardiology [CONS] Routine Comment: Consulting Provider: Jesse Pastor Reason for Consult: PAtient is now stable enough for LHC, elevated troponin n-stemi Call Completed: Yes Discharging clinician: Russ Varela - Constitutional Vitals: Temp Pulse Resp BP Pulse Ox 98.2 F 71 17 142/89 97 03/03/18 11:25 03/03/18 11:25 03/03/18 11:25 03/03/18 11:25 03/03/18 11:25 General appearance: Present: cooperative, mild distress, A&O X 3, pleasant, answers questions appropriately Exam: General: alert, cooperative, no distress Head: atraumatic, normocephalic Heart: RRR, no murmurs, rubs, or gallops Lungs: CTAB, no wheezing, no rales Abdomen: hypoactive bowel sounds, no tenderness, no masses Skin: warm, dry, intact Extremities: no cyanosis. right lower extremity in boot with swelling around right lateral malleolus - Patient Status Disposition: Home Health Service Condition: Fair Functional capacity at discharge: uses cane/walker Overall status at discharge: patient is progressing back to baseline - Ambulatory Orders Ambulatory Orders: Basic Metabolic Panel [CHEM] Time Frame: 3 Days, Facility: [facility], Location: Lab Complete Blood Count [HEME] Time Frame: 3 Days, Facility: [facility], Location: Lab - Discharge Instructions Follow Up With: Paras Horvath MD [Primary Care Provider] - - Diet and Activity Activity: as per physical therapy Diet: low fat, low cholesterol - VTE Reasons for not Prescribing Prophylaxis: Medical contraindication Documentation of Mechanical Device: Intermittent pneumatic compression device - Attending Attestation Discharge cancelled due to hypoxia, fluid overloaded.
[2018-03-03] MEDS ORDERED: Furosemide 40 MG/4 ML VIAL IVP STA (17:37)
--- NOTE | 2018-03-03 17:40 | Event Note ---
Date of Encounter: 03/03/18 Time of Encounter: 17:39 Patient still requiring O2. We attempted to wean her today and there was no success. With her low EF and recent septic shock requiring fluids, a chest x- ray was obtained and confirmed fluid overload. She will need to stay likely 1-2 more days for diuresis.
[2018-03-03] MEDS: traZODone 50 MG TABLET PO SCH (20:24)
[2018-03-04] MEDS: Ondansetron 4 MG/2 ML VIAL IVP SCH ×4 (00:39→16:26)
[2018-03-04 01:25] LABS: Basophils % 0.5 %; Eosinophils # 0.1 K/mcL (0.0-0.6); Eosinophils % 2.1 %; Hematocrit 31.5 % (35.3-44.9); Hemoglobin 10.5 g/dL (11.5-15.4); Lymphocytes # 1.1 K/mcL (0.6-4.6); Lymphocytes % 18.1 %; Mean Corpuscular HGB Conc 33.3 g/dL (31.6-35.5); Mean Corpuscular Hemoglobin 30.1 pg (28.0-33.3); Mean Corpuscular Volume 90.3 fL (83.0-100.0); Monocytes # 0.8 K/mcL (0.0-1.3); Monocytes % 13.3 %; Neutrophils # 3.9 K/mcL (1.6-8.9); Platelet Count 455 K/mcL (140-400); Red Blood Count 3.49 M/mcL (3.82-4.97); Red Cell Distribution Width 12.8 % (11.5-14.5)
[2018-03-04 01:44] LABS: BUN/Creatinine Ratio 7 (6-26); Blood Urea Nitrogen 4 mg/dL (8-23); Calcium 8.1 mg/dL (8.6-10.3); Carbon Dioxide 35 mEq/L (23-29); Chloride 97 mEq/L (98-107); Glucose 99 mg/dL (70-105); Osmolality,Calculated 287 (280-300); Potassium 2.9 mEq/L (3.5-5.1); Sodium 140 mEq/L (136-145); eGFR For Non-African Americans > 60 (> 60)
[2018-03-04] MEDS: *HR* Heparin 5,000 UNIT/ML VIAL SQ SCH ×3 (06:17→21:01)
[2018-03-04 06:48] LABS: BUN/Creatinine Ratio 9 (6-26); Blood Urea Nitrogen 5 mg/dL (8-23); Calcium 8.4 mg/dL (8.6-10.3); Carbon Dioxide 34 mEq/L (23-29); Chloride 97 mEq/L (98-107); Glucose 93 mg/dL (70-105); Osmolality,Calculated 285 (280-300); Potassium 3.7 mEq/L (3.5-5.1); Sodium 139 mEq/L (136-145); eGFR For Non-African Americans > 60 (> 60)
[2018-03-04] MEDS: Vancomycin Oral Soln 125 MG/2.5 ML UDC PO SCH ×4 (07:54→21:01)
[2018-03-04] MEDS: Aspirin 81 MG TAB.CHEW PO SCH (07:55)
[2018-03-04] MEDS: Cyanocobalamin (B-12) 1,000 MCG TABLET PO SCH (07:55)
[2018-03-04] MEDS: Magnesium Oxide 400 MG TABLET PO SCH ×2 (07:55→21:01)
[2018-03-04] MEDS: Metoprolol XL (24 HR) Succ 25 MG TAB.ER.24H PO SCH (07:55)
--- NOTE | 2018-03-04 10:27 | Internal Med Progress Note ---
Hospitalist Progress Note - Encounter Date of Encounter: 03/04/18 Time of Encounter: 10:00 - Subjective Interval History: No acute events. Weaned to room air. - Exam Vitals: Temp Pulse Resp BP Pulse Ox 98.2 F 85 18 149/83 94 03/04/18 07:00 03/04/18 07:00 03/04/18 07:00 03/04/18 07:00 03/04/18 07:00 Exam: General: alert, cooperative, no distress Head: atraumatic, normocephalic Heart: RRR, no murmurs, rubs, or gallops Lungs: CTAB, no wheezing, no rales Abdomen: hypoactive bowel sounds, no tenderness, no masses Skin: warm, dry, intact Extremities: no cyanosis. right lower extremity in boot with swelling around right lateral malleolus - Assessment and Plan (1) Septic shock Current Visit: Yes Status: Acute Assessment and Plan: Secondary to UTI. Resolved with antibiotics. (2) UTI (urinary tract infection) Current Visit: Yes Status: Acute Assessment and Plan: Treated with Rocephin. (3) Non-STEMI (non-ST elevated myocardial infarction) Current Visit: Yes Status: Acute Assessment and Plan: Secondary to septic shock. Cardiology was consulted and she had a LHC during admission that was unremarkable. She did have EF 30-35% on echocardiogram. Monitoring cardiac function, maximizing medical management. (4) Acute respiratory failure with hypoxia Current Visit: Yes Status: Acute Assessment and Plan: Patient fluid overloaded, she was requiring 2L and had difficulty weaning to room air. She required fluid for septic shock on admission. She had NSTEMI from demand ischemia of shock. Cardiac workup showed EF 30-35%. Chest x-ray showed new bilateral mild pleural effusions and lung base consolidations. BNP was elevated at 907. She is being diuresed with Lasix 20 mg IV BID and currently able to wean to room air. Anticipate discharge tomorrow if able to stay on room air without issue. (5) Cardiac LV ejection fraction 30-35% Current Visit: Yes Status: Acute Assessment and Plan: She had her BB metoprolol increased, and she was started on lisinopril. (6) DVT prophylaxis Current Visit: Yes Status: Acute Assessment and Plan: She was on Xarelto at home due to a recent ortho surgery on right knee. GI bleed is not likely cause of her acute anemia anemia. It appears to be due to septic shock, but she should still have close monitoring with CBC in 3 days while resuming Xarelto. (7) Campylobacter gastroenteritis Current Visit: Yes Status: Acute Assessment and Plan: Treated with Azithromycin during admission. (8) Clostridium difficile colitis Current Visit: Yes Status: Acute Assessment and Plan: Being discharged home with Vancomycin PO. (9) Coronary artery disease Current Visit: Yes Status: Acute Assessment and Plan: Aspirin, lipitor. DVT Prophylaxis: ECPD to left leg, right leg is post-op day 12 -hold heparin for procedure - Summary of Assessment and Plan Summary of Assessment and Plan: Shock: Fluid resuscitation followe dby PRBC has increased her blood pressure to 111/83 Continue IV antibiotics and follow cultures Shock most likely due to blood loss UTI: repeat urine showed trace blood, negative nitrite, small leukocyte esterase Continue IV antibiotics and follow cultures Shock most likely due to blood loss GI bleed: Acute anemia and epigastric pain with protracted nausea Possible upper GI blood loss NPO, start protonix, was given 2 units PRBC will continue to monitor H&H Non-stemi Trending troponins 1.43 decreased from 1.85 Echo has been ordered. Heparin stopped due to possible GI bleed Cardiology has been consulted - Time Spent with Patient Total time spent is greater than 50% in coordination of care (as documented) at patient's floor/unit and/or counseling patient: Internal Medicine: Result - Labs CBC & Chem 7: 03/04/18 01:05 03/04/18 06:10 Labs: Short CBC 03/04/18 Range/Units 01:05 WBC 6.1 (4.3-11.1) K/mcL Hgb 10.5 L (11.5-15.4) g/dL Hct 31.5 L (35.3-44.9) % Plt Count 455 H (140-400) K/mcL Neutrophils # 3.9 (1.6-8.9) K/mcL BMP 03/04/18 03/04/18 01:05 06:10 Sodium 140 139 Potassium 2.9 L 3.7 D Chloride 97 L 97 L Carbon Dioxide 35 H 34 H BUN 4 L 5 L Creatinine 0.55 L 0.56 L Glucose 99 93 Calcium 8.1 L 8.4 L - ABG Interpretation ABG results: PT/INR, D-dimer PT 14.4 Seconds (9.4-12.1) H 02/26/18 15:35 - Impressions Impressions Chest X-Ray 03/03/18 16:05 IMPRESSION: New bilateral mild pleural effusions and lung base consolidation. D/ / 03/03/2018 17:10:16 Rajat Rainey MD / rom warren Interpreting Provider: Rajat Rainey MD - VTE Reasons for not Prescribing Prophylaxis: Medical contraindication Documentation of Mechanical Device: Intermittent pneumatic compression device Consult Discharge Plan - Plan Referrals: Paras Horvath MD [Primary Care Provider] - Prescriptions: Aspirin 81 mg PO DAILY #30 tab.chew Lisinopril [Zestril] 5 mg PO DAILY #30 tablet Metoprolol XL (24 HR) Succ [Toprol Xl] 25 mg PO DAILY #30 tab.er.24h Vancomycin Oral Soln [Firvanq] 125 mg PO QID 10 Days #1000 [facility] [place] (2) UTI (urinary tract infection) Qualifiers: Urinary tract infection type: acute cystitis Hematuria presence: without hematuria Qualified Code(s): N30.00 - Acute cystitis without hematuria (9) Coronary artery disease Qualifiers: Coronary Disease-Associated Artery/Lesion type: [place] artery [place] vs. transplanted heart: [place] heart Associated angina: angina presence unspecified Qualified Code(s): I25.10 - Atherosclerotic heart disease of [place] coronary artery without angina pectoris
[2018-03-04] MEDS: cefTRIAXone 2,000 MG in Water for inj. (sterile) 20 ML 20 ML IVP SCH (11:05)
[2018-03-04] MEDS: Furosemide 40 MG/4 ML VIAL IVP SCH ×2 (11:08→16:19)
[2018-03-04] MEDS: traZODone 50 MG TABLET PO SCH (21:02)
[2018-03-05] MEDS: Ondansetron 4 MG/2 ML VIAL IVP SCH ×2 (00:51→06:16)
[2018-03-05 03:59] LABS: Basophils # 0.1 K/mcL (0.0-0.2); Basophils % 0.9 %; Eosinophils # 0.2 K/mcL (0.0-0.6); Eosinophils % 3.5 %; Hemoglobin 10.8 g/dL (11.5-15.4); Immature Granulocytes % 2.4 % (0-4); Lymphocytes # 1.1 K/mcL (0.6-4.6); Lymphocytes % 20.1 %; Mean Corpuscular HGB Conc 33.8 g/dL (31.6-35.5); Mean Corpuscular Hemoglobin 30.2 pg (28.0-33.3); Mean Corpuscular Volume 89.4 fL (83.0-100.0); Mean Platelet Volume 8.9 fL (9.4-12.4); Monocytes # 0.6 K/mcL (0.0-1.3); Monocytes % 11.8 %; Neutrophils # 3.3 K/mcL (1.6-8.9); Platelet Count 429 K/mcL (140-400); Red Blood Count 3.58 M/mcL (3.82-4.97); Red Cell Distribution Width 12.8 % (11.5-14.5); Segmented Neutrophils % 61.3 %
[2018-03-05 04:17] LABS: BUN/Creatinine Ratio 7 (6-26); Blood Urea Nitrogen 5 mg/dL (8-23); Calcium 8.7 mg/dL (8.6-10.3); Carbon Dioxide 36 mEq/L (23-29); Chloride 95 mEq/L (98-107); Glucose 100 mg/dL (70-105); Osmolality,Calculated 283 (280-300); Potassium 3.3 mEq/L (3.5-5.1); Sodium 138 mEq/L (136-145); eGFR For Non-African Americans > 60 (> 60)
[2018-03-05] MEDS: *HR* Heparin 5,000 UNIT/ML VIAL SQ SCH (06:15)
[2018-03-05 06:57] VITALS: BP 145/84
[2018-03-05] MEDS: Aspirin 81 MG TAB.CHEW PO SCH (07:58)
[2018-03-05] MEDS: Metoprolol XL (24 HR) Succ 25 MG TAB.ER.24H PO SCH (07:59)
[2018-03-05] MEDS: Magnesium Oxide 400 MG TABLET PO SCH (07:59)
[2018-03-05] MEDS: Cyanocobalamin (B-12) 1,000 MCG TABLET PO SCH (08:00)
[2018-03-05] MEDS ORDERED: Furosemide 20 MG/2 ML VIAL IVP SCH (08:00)
[2018-03-05] MEDS: Vancomycin Oral Soln 125 MG/2.5 ML UDC PO SCH (08:00)
--- NOTE | 2018-03-05 10:30 | Physician Discharge Referral ---
Home Health/Hosp Referral Info Transfer to: Home Health Provider in Charge Post Discharge: PCP - Diagnosis (1) Septic shock Priority: Primary Status: Acute (2) Campylobacter gastroenteritis Priority: Secondary Status: Acute (3) Cardiac LV ejection fraction 30-35% Priority: Secondary Status: Acute (4) Clostridium difficile colitis Priority: Secondary Status: Acute (5) Non-STEMI (non-ST elevated myocardial infarction) Priority: Secondary Status: Acute (6) UTI (urinary tract infection) Priority: Secondary Status: Acute - Respiratory Orders Oxygen / L per min (2 L/m, plan to wean as tolerated to saturation >90*) Smoking Cessation: Smoking cessation has been advised. For more information, call the [place] Tobacco Quit Line at 7-521-VGWH-NOW. - Diet/Nutrition Diet/Nutrition: List: low fat, low cholesterol - Activity Activity Orders: Up ad levi (per PT/OT) - Services Needed Following services are medically necessary services: Nursing, Home Health Aide, Physical Therapy, Occupational Therapy Other Treatments: CBC, BMP to be done in 2-3 days (prior to PCP follow up). - Transfer Medications Prescriptions: Aspirin 81 mg PO DAILY #30 tab.chew Cefdinir [Omnicef] 300 mg PO BID #8 capsule Furosemide Oral Soln [Lasix] 40 mg PO DAILY 5 Days #5 solution Lisinopril [Zestril] 5 mg PO DAILY #30 tablet Metoprolol XL (24 HR) Succ [Toprol Xl] 25 mg PO DAILY #30 tab.er.24h Potassium Chloride 10 meq PO DAILY 5 Days #5 tab.er.prt Vancomycin Oral Soln [Firvanq] 125 mg PO QID 10 Days #1000 [facility] [place] Home Medications: Atorvastatin [Lipitor] 10 mg PO HS 02/14/18 [History] Buspirone HCl [Buspar] 15 mg PO BID 02/14/18 [History] Magnesium Oxide [Magnesium] 400 mg PO BID 02/14/18 [History] Megestrol Acetate [Megace] 40 mg PO BID 02/14/18 [History] traZODone [TraZODone] 25 mg PO HS 02/14/18 [History] Azelastine 0.1% Nasal [place] [Astelin] 2 spr NS BID 02/26/18 [History] Cyanocobalamin (Vitamin B-12) [Vitamin B-12] 100 mcg PO DAILY 02/26/18 [History] Escitalopram [Lexapro] 10 mg PO DAILY 02/26/18 [History] HYDROcodone/Acet 7.5/325 mg [[place] 7.5-325 mg] 1 tab PO Q6H PRN 02/26/18 [History] Ipratropium [place] 2 spr NS BID 02/26/18 [History] Naproxen [Naprosyn] 500 mg PO BID 02/26/18 [History] Omeprazole [PriLOSEC] 40 mg PO DAILY 02/26/18 [History] Ondansetron HCl [Zofran] 4 mg PO Q6H PRN 02/26/18 [History] Aspirin 81 mg PO DAILY #30 tab.chew 03/03/18 [Rx] Lisinopril [Zestril] 5 mg PO DAILY #30 tablet 03/03/18 [Rx] Metoprolol XL (24 HR) Succ [Toprol Xl] 25 mg PO DAILY #30 tab.er.24h 03/03/18 [Rx] Vancomycin Oral Soln [Firvanq] 125 mg PO QID 10 Days #1000 [facility] 03/03/18 [Rx] Cefdinir [Omnicef] 300 mg PO BID #8 capsule 03/05/18 [Rx] Furosemide Oral Soln [Lasix] 40 mg PO DAILY 5 Days #5 solution 03/05/18 [Rx] Potassium Chloride 10 meq PO DAILY 5 Days #5 tab.er.prt 03/05/18 [Rx] Allergies/Adverse Reactions: Allergy/AdvReac Type Severity Reaction Status Date / Time No Known Allergies Allergy Verified 02/26/18 11:19 Certification: Further, I certify that my clinical findings support that this patient is homebound (i.e. absences from home require considerable and taxing effort and are for medical reasons or jainism services or infrequently or short duration when for other reasons) because: Homebound Reason: Patient requires assistance of a person or device to safely leave home, Leaving home requires considerable and taxing effort due to condition, Severity of cardiac or pulmonary status limits activity tolerance Attestation: My signature below is to certify that this patient is under my care and that I, or nurse practitioner, or a physician's production assistant working with me, has a [id number] encounter with this patient.
--- NOTE | 2018-03-05 13:32 | Discharge Summary ---
<C[place] - Last Filed: 03/05/18 13:28> - NOTES TO OUTPATIENT PROVIDER Notes to Outpatient Provider: Wean oxygen as tolerated. - Follow up for weakness. PT/OT recommended SNF but patient refused- agrees to HH. - Acute anemia was likely from septic shock, but should monitor for any signs/symptoms of GI bleed. Will need to resume Xarelto for DVT prophylaxis since she had recent ortho surgery prior to admission. - Echocardiogram EF 30-35%, started on lisinopril. Metoprolol dose was adjusted. - D/c on laxis/potassium til PCP follow up - Recheck CBC and BMP in 3 days. Orders not resulted at time of discharge: Pending orders 02/26/18 04:13 Urinalysis Dipstick Only [URIN] Stat 03/06/18 04:00 Basic Metabolic Panel AM 0400 CBC [Complete Blood Count] [HEME] AM 0400 Date of Encounter: 03/05/18 Time of Encounter: 09:40 - Discharge Diagnosis (1) Septic shock Priority: Primary Status: Acute (2) Campylobacter gastroenteritis Priority: Secondary Status: Acute Assessment and Plan: Being discharged home with Vancomycin PO (3) Cardiac LV ejection fraction 30-35% Priority: Secondary Status: Acute (4) Clostridium difficile colitis Priority: Secondary Status: Acute (5) Non-STEMI (non-ST elevated myocardial infarction) Priority: Secondary Status: Acute (6) UTI (urinary tract infection) Priority: Secondary Status: Acute Qualifiers: Urinary tract infection type: acute cystitis Hematuria presence: without hematuria Qualified Code(s): N30.00 - Acute cystitis without hematuria (7) DVT prophylaxis Priority: Secondary Status: Acute (8) Coronary artery disease Priority: Secondary Status: Acute Qualifiers: Coronary Disease-Associated Artery/Lesion type: [place] artery [place] vs. transplanted heart: [place] heart Associated angina: angina presence unspecified Qualified Code(s): I25.10 - Atherosclerotic heart disease of [place] coronary artery without angina pectoris Hospital course: Ms. Buckley is a 62 year old female who presented to the ER with complaints of abdominal pain, vomiting, and weakness. ER workup revealed leukocytosis, anemia, and positive troponin. CT scan of the abdomen was negative. Urinalysis suggestive of UTI and she was started on antibiotics and admitted to hospitalist service for suspected NSTEMI and UTI. On the floor patient was hypotensive with BP of 70/50 and tachycardia. Her only complaint was severe epigastric pain, protracted nausea, vomiting, and worsening weakness with lightheadedness. She had recent surgery and has been on Xarelto for DVT prophylaxis postoperatively. Noted that she had a significant drop in her hemoglobin since her surgery 9 days prior. Her hemoglobin then was 12.1 to 8.5. She had been started on a heparin drip in the ER for suspected non-STEMI, this was temporarily held but restarted with occult stool negative for blood. GI workup positive for C. Diff and Campylobacter. Patient was treated with Zosyn and Vancomycin for GI infection along with UTI. TTE with LVEF 30-35%, global hypokinesis, mild TR, mild-moderate PH. Once patient was hemodynamically stable patient underwent LHC was negative for coronary disease or blockages. On 02/26/18 Patient requiring oxygen, CXR with pleural effusion/consolidation- lasix started. Patient respiratory status improved with diuretics. Urine culture grew E. Coli that was riojas sensitive- abx coverage switched to rocephin/zithromycin and zosyn stopped. Patient has remained stable on room air with lasix taper. Plan to continue lasix with potassium replacement for the next few days and plan for close follow up with PCP to monitor kidney function, anemia, and electrolytes. Plan to discharge on supplemental O2 and wean as tolerated. PT/OT saw patient and recommended ECF however patient adamant that she prefers to discharge home with Home Health. Discharge discussed with: patient, family, nurse - Time Spent with Patient Total time spent providing and/or coordinating discharge services: Greater than 30 minutes (45) - Discharge Medications Prescriptions: Aspirin 81 mg PO DAILY #30 tab.chew Cefdinir [Omnicef] 300 mg PO BID #8 capsule Furosemide Oral Soln [Lasix] 40 mg PO DAILY 5 Days #5 solution Lisinopril [Zestril] 5 mg PO DAILY #30 tablet Metoprolol XL (24 HR) Succ [Toprol Xl] 25 mg PO DAILY #30 tab.er.24h Potassium Chloride 10 meq PO DAILY 5 Days #5 tab.er.prt Vancomycin Oral Soln [Firvanq] 125 mg PO QID 10 Days #1000 [facility] [place] Home Medications: Atorvastatin [Lipitor] 10 mg PO HS 02/14/18 [History] Buspirone HCl [Buspar] 15 mg PO BID 02/14/18 [History] Magnesium Oxide [Magnesium] 400 mg PO BID 02/14/18 [History] Megestrol Acetate [Megace] 40 mg PO BID 02/14/18 [History] traZODone [TraZODone] 25 mg PO HS 02/14/18 [History] Azelastine 0.1% Nasal [place] [Astelin] 2 spr NS BID 02/26/18 [History] Cyanocobalamin (Vitamin B-12) [Vitamin B-12] 100 mcg PO DAILY 02/26/18 [History] Escitalopram [Lexapro] 10 mg PO DAILY 02/26/18 [History] HYDROcodone/Acet 7.5/325 mg [[place] 7.5-325 mg] 1 tab PO Q6H PRN 02/26/18 [History] Ipratropium [place] 2 spr NS BID 02/26/18 [History] Naproxen [Naprosyn] 500 mg PO BID 02/26/18 [History] Omeprazole [PriLOSEC] 40 mg PO DAILY 02/26/18 [History] Ondansetron HCl [Zofran] 4 mg PO Q6H PRN 02/26/18 [History] Aspirin 81 mg PO DAILY #30 tab.chew 03/03/18 [Rx] Lisinopril [Zestril] 5 mg PO DAILY #30 tablet 03/03/18 [Rx] Metoprolol XL (24 HR) Succ [Toprol Xl] 25 mg PO DAILY #30 tab.er.24h 03/03/18 [Rx] Vancomycin Oral Soln [Firvanq] 125 mg PO QID 10 Days #1000 [facility] 03/03/18 [Rx] Cefdinir [Omnicef] 300 mg PO BID #8 capsule 03/05/18 [Rx] Furosemide Oral Soln [Lasix] 40 mg PO DAILY 5 Days #5 solution 03/05/18 [Rx] Potassium Chloride 10 meq PO DAILY 5 Days #5 tab.er.prt 03/05/18 [Rx] Allergies/Adverse Reactions: Allergy/AdvReac Type Severity Reaction Status Date / Time No Known Allergies Allergy Verified 02/26/18 11:19 Date of admission: 02/26/18 03:46 Primary care physician: Paras Horvath MD Consults: 02/26/18 04:43 Consult to Cardiology [CONS] Routine Comment: Consulting Provider: Jesse Pastor Reason for Consult: NSTEMI; GI bleed suspected Call Completed: No 02/27/18 11:10 Consult to Invasive Line Access Team [CONS] Routine Reason for Consult: poor access Line Type: EPIV 02/28/18 17:26 Consult to Physical Therapy [CONS] Routine Comment: Evaluate, develop and implement POC Reason for Consult: discharge planning Does patient have active BEDREST order?: No Is patient medically & hemodynamically stable?: Yes Patient assessed for mobility or mobilized this visit?: Yes 02/28/18 17:27 Consult to Occupational Therapy [CONS] Routine Comment: Evaluate, develop and implement POC Reason for Consult: discharge planning Does patient have active BEDREST order?: No Is patient medically & hemodynamically stable?: Yes Patient assessed for mobility or mobilized this visit?: Yes 03/01/18 14:58 Consult to Cardiology [CONS] Routine Comment: Consulting Provider: Jesse Pastor Reason for Consult: PAtient is now stable enough for LHC, elevated troponin n-stemi Call Completed: Yes Discharging clinician: Russ Varela Anticipated date of discharge: 03/05/18 - Constitutional Vitals: Temp Pulse Resp BP Pulse Ox 98.0 F 90 16 145/84 94 03/05/18 06:56 03/05/18 06:56 03/05/18 06:56 03/05/18 06:56 03/05/18 12:41 General appearance: Present: cooperative, mild distress, A&O X 3, pleasant, answers questions appropriately Exam: General: alert, cooperative, no distress Head: atraumatic, normocephalic Heart: RRR, no murmurs, rubs, or gallops Lungs: CTAB, no wheezing, no rales Abdomen: normoactive bowel sounds, no tenderness, no masses Skin: warm, dry, intact Extremities: no cyanosis - Patient Status Disposition: Home Health Service Condition: Fair Functional capacity at discharge: uses cane/walker Overall status at discharge: patient is progressing back to baseline - Ambulatory Orders Ambulatory Orders: Basic Metabolic Panel [CHEM] Time Frame: 3 Days, Facility: [facility], Location: Lab Complete Blood Count [HEME] Time Frame: 3 Days, Facility: [facility], Location: Lab - Discharge Instructions Follow Up With: Steven Smalls DO [Non-Partnered Physician] - 03/09/18 8:10 am Abiola Banegas [Partnered Physician] - (Office will call with date and time of appointment. Thank you) Jerry Talamantes [Non-Partnered Physician] - 03/07/18 2:00 pm (Please bring your photo ID, insurance card and any medications your are on. Thank you) Additional Instructions: Please follow up with Primary Care Provider in the next 3 days for follow up of labs. Please complete lab work prior to appointment so that your provider can review this with you and adjust medications as needed. Please take medications as instructed, to complete antibiotics. Please return or seek medical care if you have new or worsening symptoms such as chest pain, shortness of breath, confusion, dizziness, black or bloody stools. - Diet and Activity Activity: as per physical therapy Diet: low fat, low cholesterol - VTE Reasons for not Prescribing Prophylaxis: Medical contraindication Documentation of Mechanical Device: Intermittent pneumatic compression device <Russ Varela - Last Filed: 03/06/18 01:08> Orders not resulted at time of discharge: Pending orders 02/26/18 04:13 Urinalysis Dipstick Only [URIN] Stat - Discharge Diagnosis (1) Septic shock Status: Acute (2) UTI (urinary tract infection) Status: Acute Qualifiers: Urinary tract infection type: acute cystitis Hematuria presence: without hematuria Qualified Code(s): N30.00 - Acute cystitis without hematuria (3) Non-STEMI (non-ST elevated myocardial infarction) Status: Acute (4) Cardiac LV ejection fraction 30-35% Status: Acute (5) DVT prophylaxis Status: Acute (6) Campylobacter gastroenteritis Status: Acute (7) Clostridium difficile colitis Status: Acute (8) Coronary artery disease Status: Acute Qualifiers: Coronary Disease-Associated Artery/Lesion type: [place] artery [place] vs. transplanted heart: [place] heart Associated angina: angina presence unspecified Qualified Code(s): I25.10 - Atherosclerotic heart disease of [place] coronary artery without angina pectoris Hospital course: Ms. Buckley is a 62 year old female - Time Spent with Patient Total time spent providing and/or coordinating discharge services: Date of admission: 02/26/18 03:46 Primary care physician: Paras Horvath MD Consults: 02/26/18 04:43 Consult to Cardiology [CONS] Routine Comment: Consulting Provider: Jesse Pastor Reason for Consult: NSTEMI; GI bleed suspected Call Completed: No 02/27/18 11:10 Consult to Invasive Line Access Team [CONS] Routine Reason for Consult: poor access Line Type: EPIV 02/28/18 17:26 Consult to Physical Therapy [CONS] Routine Comment: Evaluate, develop and implement POC Reason for Consult: discharge planning Does patient have active BEDREST order?: No Is patient medically & hemodynamically stable?: Yes Patient assessed for mobility or mobilized this visit?: Yes 02/28/18 17:27 Consult to Occupational Therapy [CONS] Routine Comment: Evaluate, develop and implement POC Reason for Consult: discharge planning Does patient have active BEDREST order?: No Is patient medically & hemodynamically stable?: Yes Patient assessed for mobility or mobilized this visit?: Yes 03/01/18 14:58 Consult to Cardiology [CONS] Routine Comment: Consulting Provider: Jesse Pastor Reason for Consult: PAtient is now stable enough for LHC, elevated troponin n-stemi Call Completed: Yes - Constitutional Vitals: Temp Pulse Resp BP Pulse Ox 98.0 F 90 16 145/84 94 03/05/18 06:56 03/05/18 06:56 03/05/18 06:56 03/05/18 06:56 03/05/18 12:41 - Attending Attestation I examined this patient and my medical decision-making was reviewed with the Resident Physician. I agree with the documented findings, disposition and treatment plan as described except to the extent set forth below.
== END 2018-03-05 15:31 | disposition home health service (06) | DRG 871 ==
LOC: 2NENU 17:55 → EMEROOARM 17:55 → 2NENU 22:14 → ICNU 02-26 03:09 → SUATTDRO 02-26 03:46 → 3ANU 02-27 15:38
PROVIDERS: ADMIT Family Medicine; ATTEND Student in an Organized Health Care Education/Training Program